=== PATIENT | female | born 1945 | race Two or more races ===

== ENCOUNTER 2020-09-06 17:50 | Inpatient (IN) | payer MEDICAID, MEDICARE, OTHER ==
[~2020-09-06] VITALS: Ht 152.4 cm; Wt 54.4 kg
[2020-09-06] MEDS ORDERED: Hydromorphone 0.5mg/0.5ml inj IVP ONE ×3 (18:00→22:15)
--- NOTE | 2020-09-06 18:00 | NUR ---
ED Nurse Note: Pt was brought in ambulance from the streets s/p slipped and fall today on the the side street with complains of severe L knee pain, no loss of consciousness noted no head trauma. Pt is AOx4, (+) facial grimace, cooperative to care. Pt's VSS, on RA, afebrile on triage. placed on bed and gown.
--- NOTE | 2020-09-06 18:24 | NUR ---
ED Nurse Note: Patient taken down to CT and stable.
[2020-09-06 18:32] LABS: EOSINOPHILS % (AUTO) 1.2 % (0.0-3.0); HEMATOCRIT 27.4 % (37.0-47.0); HEMOGLOBIN 9.7 G/DL (12.0-16.0); LYMPHOCYTES % (AUTO) 16.1 % (20.0-45.0); MEAN CORPUSCULAR VOLUME 88 FL (80-99); MONOCYTES % (AUTO) 6.3 % (1.0-10.0); NEUTROPHILS % (AUTO) 75.4 % (45.0-75.0); PLATELET COUNT 284 K/UL (150-450); RED BLOOD COUNT 3.11 M/UL (4.20-5.40); RED CELL DISTRIBUTION WIDTH 14.4 % (11.6-14.8); WHITE BLOOD COUNT 7.1 K/UL (4.8-10.8)
[2020-09-06 18:41] LABS: ANION GAP 8 mmol/L (5-15); BLOOD UREA NITROGEN 18 mg/dL (7-18); CALCIUM 8.8 MG/DL (8.5-10.1); CARBON DIOXIDE 26 MMOL/L (21-32); CHLORIDE 96 MMOL/L (98-107); CREATININE 0.9 MG/DL (0.55-1.30); POTASSIUM 3.7 MMOL/L (3.5-5.1); SODIUM 130 MMOL/L (136-145)
[2020-09-06 18:46] LABS: ALANINE AMINOTRANSFERASE 15 U/L (12-78); ALBUMIN 3.4 G/DL (3.4-5.0); ALBUMIN/GLOBULIN RATIO 0.7 (1.0-2.7); ALKALINE PHOSPHATASE 119 U/L (46-116); ASPARTATE AMINO TRANSFERASE 27 U/L (15-37); BILIRUBIN,TOTAL 0.4 MG/DL (0.2-1.0)
--- NOTE | 2020-09-06 18:50 | NUR ---
ED Nurse Note: pt returned from radiology.
--- NOTE | 2020-09-06 19:05 | Diagnostic Imaging Report ---
EXAM: CT Abdomen and Pelvis Without Intravenous Contrast CLINICAL HISTORY: ABD PAIN TECHNIQUE: Axial computed tomography images of the abdomen and pelvis without intravenous contrast. CTDI is 11.7 mGy and DLP is 659.4 mGy-cm. One or more of the following dose reduction techniques were used: automated exposure control, adjustment of the mA and/or kV according to patient size, use of iterative reconstruction technique. COMPARISON: No relevant prior studies available. FINDINGS: Lung bases: 1.7 cm right lower lobe pulmonary nodule with irregular hazy and spiculated margins. 8 mm left lingular solid pulmonary nodule. ABDOMEN: Liver: Unremarkable. Gallbladder and bile ducts: Gallstones within the dependent portion of the gallbladder. No ductal dilation. Pancreas: Unremarkable. No ductal dilation. Spleen: Unremarkable. No splenomegaly. Adrenals: Unremarkable. No mass. Kidneys and ureters: Unremarkable. No obstructing stones. No hydronephrosis. Stomach and bowel: Unremarkable. No obstruction. No mucosal thickening. PELVIS: Appendix: Normal appendix. Bladder: Unremarkable. No stones. Reproductive: Unremarkable as visualized. ABDOMEN and PELVIS: Intraperitoneal space: Unremarkable. No free air. No significant fluid collection. Bones/joints: There is a comminuted fracture of the proximal left femur through the intertrochanteric region. There is displacement and apex lateral angulation. The lesser trochanter is displaced medially and posteriorly. Subtle grade 1 anterolisthesis of L4 on L5. Multiple bilateral chronic appearing rib fractures. No dislocation. Soft tissues: Unremarkable. Vasculature: Atherosclerotic vascular disease. No abdominal aortic aneurysm. Lymph nodes: Unremarkable. No enlarged lymph nodes. IMPRESSION: 1. Comminuted, angulated, and displaced left intertrochanteric femur fracture. 2. 1.7 cm right lobe pulmonary nodule with irregular margins, suspicious for primary lung malignancy. Consider tissue biopsy for further evaluation. 3. 8 mm left lingular pulmonary nodule. Consider PET CT, short interval follow-up CT, versus tissue biopsy for further evaluation. 4. Cholelithiasis without evidence of cholecystitis.
--- NOTE | 2020-09-06 19:19 | Diagnostic Imaging Report ---
EXAM: CT Left Lower Extremity Without Intravenous Contrast CLINICAL HISTORY: PAIN TECHNIQUE: Axial computed tomography images of the left lower extremity without intravenous contrast. CTDI is 7.8 mGy and DLP is 432.9 mGy-cm. One or more of the following dose reduction techniques were used: automated exposure control, adjustment of the mA and/or kV according to patient size, use of iterative reconstruction technique. COMPARISON: CT abdomen and pelvis dated 09/06/2020. FINDINGS: Bones/joints: There is a comminuted fracture of the proximal left femur through the intertrochanteric region. There is displacement of the greater and lesser trochanters. There are multiple displaced fracture fragments measuring up to 2.6 cm of displacement. There is apex lateral and superior angulation. There is no dislocation. Degenerative changes of the patellofemoral greater than tibiofemoral joints with sclerosis and subchondral cystic change. Soft tissues: Unremarkable. Vasculature: Diffuse atherosclerotic vascular disease. IMPRESSION: 1. Comminuted, displaced, and angulated left intertrochanteric fracture. 2. 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 3. Atherosclerotic vascular disease.
--- NOTE | 2020-09-06 19:26 | Diagnostic Imaging Report ---
EXAM: CT Left Lower Extremity Without Intravenous Contrast, Knee CLINICAL HISTORY: PAIN TECHNIQUE: Axial computed tomography images of the left knee without intravenous contrast. CTDI is 3.8 mGy and DLP is 134.6 mGy-cm. One or more of the following dose reduction techniques were used: automated exposure control, adjustment of the mA and/or kV according to patient size, use of iterative reconstruction technique. COMPARISON: CT femur dated 09/06/2020. FINDINGS: Bones/joints: There is a central linear lucency along the medial tibial plateau with extension to the cortex (image [id number], series 6). Tricompartmental osteoarthritis is noted, manifested by marginal osteophytosis. Additionally, there is joint space narrowing, more prominent within the patellofemoral joint. Subchondral sclerosis is demonstrated within the medial tibiofemoral and patellofemoral joints. There is subchondral cystic change of the patellofemoral joint. There is a small suprapatellar joint effusion. Anterior and posterior cruciate ligaments appear intact. No dislocation. Soft tissues: Unremarkable. Vasculature: Atherosclerotic vascular disease. IMPRESSION: 1. Subtle cortical lucency of the medial tibial plateau suggestive of small nondisplaced fracture. Recommend correlation with location of pain as well as correlation with exam for point tenderness. 2. Mild to moderate tricompartmental osteoarthritis, most prominent within the patellofemoral joint. 3. Small suprapatellar joint effusion. 4. Atherosclerotic vascular disease.
[2020-09-06 20:05] VITALS: BP 128/82
--- NOTE | 2020-09-06 20:05 | NUR ---
ED Nurse Note: Received patient from JAZMIN Álvarez. patient currently in bed complaining of pain. established a new IV on patient's left AC 20 gauge. will inform ERMD of patient's pain
--- NOTE | 2020-09-06 20:28 | Emergency Room Report ---
History of Present Illness General Chief Complaint: Lower Extremity Injury Source: Patient Present Illness HPI 75-year-old female, history of hypertension, diabetes presents with left hip pain prior to arrival patient had a slip and mechanical fall, endorses sharp left hip pain aggravated luminally with rest severity is severe, intermittent patient did not hit head no LOC patient presents for evaluation and treatment Allergies: Coded Allergies: No Known Allergies (Unverified , 09/06/20) COVID-19 Screening Contact w/high risk pt: No Experienced COVID-19 symptoms?: No COVID-19 Testing performed FLOATLIGHT POWDER MIXER: No Patient History Past Medical History: see triage record Reviewed Nursing Documentation: PMH: Agreed; PSxH: Agreed Nursing Documentation-PMH Past Medical History: No History, Except For Hx Hypertension: Yes Hx Diabetes: Yes Review of Systems All Other Systems: negative except mentioned in HPI Physical Exam Vital Signs Date Time Temp Pulse Resp B/P (MAP) Pulse Ox O2 Delivery O2 Flow Rate FiO2 09/06/20 17:40 98.6 80 18 140/90 (107) 98 Sp02 EP Interpretation: reviewed, normal General Appearance: well appearing, no apparent distress, alert Head: normocephalic, atraumatic Eyes: bilateral eye PERRL, bilateral eye EOMI ENT: uvula midline, moist mucus membranes Neck: supple, thyroid normal, supple/symm/no masses Respiratory: lungs clear, no respiratory distress, no retraction, no accessory muscle use Cardiovascular #1: normal peripheral pulses, regular rate, rhythm, no edema, no gallop, no murmur Gastrointestinal: non tender, soft, no guarding, no rebound Musculoskeletal: other - Leg length discrepancy noted, tenderness to palpation left hip, 2+ PT DP fires EHL Neurologic: alert, oriented x3 Psychiatric: mood/affect normal Skin: no rash, warm/dry Medical Decision Making Diagnostic Impression: Primary Impression: Closed left hip fracture Qualified Codes: S72.002A - Fracture of unspecified part of neck of left femur, initial encounter for closed fracture Additional Impressions: COVID-19 Knee fracture, left Lung cancer Qualified Codes: C34.32 - Malignant neoplasm of lower lobe, left bronchus or lung ER Course 75-year-old female presents with mechanical fall injury to the left hip, patient found to have a fracture, possible tibial fracture Patient admitted to Dr. Bárbara Corral consulted for operative management Spoke with Dr. Hinkle in regards to transfer, currently no beds available. Patient admitted and to stay in ED until transfer vs operative management in [place] Pain control with hydromorphone NPO midnight. Laboratory Tests Test 09/06/20 18:16 White Blood Count 7.1 K/UL (4.8-10.8) Red Blood Count 3.11 M/UL (4.20-5.40) L Hemoglobin 9.7 G/DL (12.0-16.0) L Hematocrit 27.4 % (37.0-47.0) L Mean Corpuscular Volume 88 FL (80-99) Mean Corpuscular Hemoglobin 31.1 PG (27.0-31.0) H Mean Corpuscular Hemoglobin Concent 35.3 G/DL (32.0-36.0) Red Cell Distribution Width 14.4 % (11.6-14.8) Platelet Count 284 K/UL (150-450) Mean Platelet Volume 7.5 FL (6.5-10.1) Neutrophils (%) (Auto) 75.4 % (45.0-75.0) H Lymphocytes (%) (Auto) 16.1 % (20.0-45.0) L Monocytes (%) (Auto) 6.3 % (1.0-10.0) Eosinophils (%) (Auto) 1.2 % (0.0-3.0) Basophils (%) (Auto) 1.0 % (0.0-2.0) Prothrombin Time 10.7 SEC (9.30-11.50) Prothrombin Time INR 1.0 (0.9-1.1) Activated Partial Thromboplast Time 25 SEC (23-33) Sodium Level 130 MMOL/L (136-145) L Potassium Level 3.7 MMOL/L (3.5-5.1) Chloride Level 96 MMOL/L (98-107) L Carbon Dioxide Level 26 MMOL/L (21-32) Anion Gap 8 mmol/L (5-15) Blood Urea Nitrogen 18 mg/dL (7-18) Creatinine 0.9 MG/DL (0.55-1.30) Estimated Glomerular Filtration Rate > 60 mL/min (>60) Glucose Level 168 MG/DL (74-106) H Calcium Level 8.8 MG/DL (8.5-10.1) Total Bilirubin 0.4 MG/DL (0.2-1.0) Aspartate Amino Transferase (AST) 27 U/L (15-37) Alanine Aminotransferase (ALT) 15 U/L (12-78) Alkaline Phosphatase 119 U/L (46-116) H Total Protein 8.4 G/DL (6.4-8.2) H Albumin 3.4 G/DL (3.4-5.0) Globulin 5.0 g/dL Albumin/Globulin Ratio 0.7 (1.0-2.7) L Microbiology Date/Time Source Procedure Growth Status 09/06/20 18:16 Nasopharynx SARS-CoV-2 RdRp Gene Assay - Final Complete EKG Diagnostic Results Troponin ordered: No EKG Time: 18:09 EP Interpretation: NSR, rate 76, QTc 477, no acute ST elevations, normal axis CT/MRI/US Diagnostic Results CT/MRI/US Diagnostic Results : Impression Procedure: CT Abdomen Pelvis WO Contrast EXAM: CT Abdomen and Pelvis Without Intravenous Contrast CLINICAL HISTORY: ABD PAIN TECHNIQUE: Axial computed tomography images of the abdomen and pelvis without intravenous contrast. CTDI is 11.7 mGy and DLP is 659.4 mGy-cm. One or more of the following dose reduction techniques were used: automated exposure control, adjustment of the mA and/or kV according to patient size, use of iterative reconstruction technique. COMPARISON: No relevant prior studies available. FINDINGS: Lung bases: 1.7 cm right lower lobe pulmonary nodule with irregular hazy and spiculated margins. 8 mm left lingular solid pulmonary nodule. ABDOMEN: Liver: Unremarkable. Gallbladder and bile ducts: Gallstones within the dependent portion of the gallbladder. No ductal dilation. Pancreas: Unremarkable. No ductal dilation. Spleen: Unremarkable. No splenomegaly. Adrenals: Unremarkable. No mass. Kidneys and ureters: Unremarkable. No obstructing stones. No hydronephrosis. Stomach and bowel: Unremarkable. No obstruction. No mucosal thickening. PELVIS: Appendix: Normal appendix. Bladder: Unremarkable. No stones. Reproductive: Unremarkable as visualized. ABDOMEN and PELVIS: Intraperitoneal space: Unremarkable. No free air. No significant fluid collection. Bones/joints: There is a comminuted fracture of the proximal left femur through the intertrochanteric region. There is displacement and apex lateral angulation. The lesser trochanter is displaced medially and posteriorly. Subtle grade 1 anterolisthesis of L4 on L5. Multiple bilateral chronic appearing rib fractures. No dislocation. Soft tissues: Unremarkable. Vasculature: Atherosclerotic vascular disease. No abdominal aortic aneurysm. Lymph nodes: Unremarkable. No enlarged lymph nodes. IMPRESSION: 1. Comminuted, angulated, and displaced left intertrochanteric femur fracture. 2. 1.7 cm right lobe pulmonary nodule with irregular margins, suspicious for primary lung malignancy. Consider tissue biopsy for further evaluation. 3. 8 mm left lingular pulmonary nodule. Consider PET CT, short interval follow-up CT, versus tissue biopsy for further evaluation. 4. Cholelithiasis without evidence of cholecystitis. Dictated By: Natanael Estrada M.D. Electronically Signed By:Natanael Estrada M.D. Signed Date/Time09/06/20 0021 CC: Satya Wu MD Last Vital Signs Date Time Temp Pulse Resp B/P (MAP) Pulse Ox O2 Delivery O2 Flow Rate FiO2 09/06/20 17:40 98.6 80 18 140/90 (107) 98 Disposition: ADMITTED INPATIENT Condition: Stable Referrals: [facility],REFERR[facility] (PCP) Satya Wu MD Sep 06, 2020 20:28
--- NOTE | 2020-09-06 23:25 | NUR ---
ED Nurse Note: Report received from DEENA WU. Patient awake on bed. No c/o pain as of the moment
[2020-09-07] VITALS (21 sets, daily range): BP systolic 108–171; BP diastolic 51–78
--- NOTE | 2020-09-07 00:30 | NUR ---
ED Nurse Note: Patient awake on bed. Patient with c/o pain at fractured area; 04/18. ERMD aware with orders made and carried out
[2020-09-07] MEDS ORDERED: Hydromorphone 0.5mg/0.5ml inj ONE ×2 (00:31→04:21)
[2020-09-07] MEDS ORDERED: Hydromorphone 0.5mg/0.5ml inj IVP ONE ×3 (04:30→09:30)
--- NOTE | 2020-09-07 05:30 | NUR ---
ED Nurse Note: Patient asleep on bed. Comfort measures initiated
--- NOTE | 2020-09-07 06:40 | NUR ---
ED Nurse Note: Juan cath fr16 inserted aseptically.
--- NOTE | 2020-09-07 07:08 | NUR ---
ED Nurse Note: Report given to CHRISTOPHE WU
--- NOTE | 2020-09-07 07:09 | NUR ---
ED Nurse Note: Received report from Jonathan WU. Pt seen sleeping in bed. No SOB, on room air. Safety and comfort provided. Isolation precaution is observed. Will cont to monitor.
[2020-09-07 07:24] LABS: APPEARANCE,URINE CLEAR; BILIRUBIN, URINE NEGATIVE (NEGATIVE); GLUCOSE, URINE (UA) 3+ (NEGATIVE); KETONES,URINE 3+ (NEGATIVE); LEUKOCYTE ESTERASE ,URINE NEGATIVE (NEGATIVE); NITRITE,URINE NEGATIVE (NEGATIVE); PH,URINE 6 (4.5-8.0); PROTEIN,URINE 1+ (NEGATIVE); UROBILINOGEN,URINE NORMAL MG/DL (0.0-1.0)
[2020-09-07 07:26] LABS: COLOR,URINE YELLOW
--- NOTE | 2020-09-07 08:36 | NUR ---
CONTACT INFO PATIENT'S DAUGHTER LUKE,
--- NOTE | 2020-09-07 09:50 | NUR ---
ED Nurse Note: Report given to OR Charge Nurse. Pt will be picked up at 1000.
[2020-09-07] MEDS ORDERED: fentaNYL 100 mcg/2 mL IV ONE (10:10)
--- NOTE | 2020-09-07 10:13 | History & Physical ---
History and Physical History & Physicial Attending physician: Dr. Granger Reason for admission: Left hip fracture HPI: This is a 75-year-old female with history of hypertension, and diabetes, who presented to the ER with left hip pain after a slip and mechanical fall. She reports sharp left hip pain aggravated by movement. She states pain is severe. She denied head trauma, or loss of consciousness. On evaluation she in bed and appears to be in moderate pain. She tested positive for COVID-19 in the ER. She is afebrile without signs of SOB. She denies chest pain, palpitation headache, fever or chills. CT abdomen and pelvis without IV contrast shows comminuted, angulated, and displaced left intertrochanteric femur fracture; and incidental finding of cholelithiasis without evidence of cholecystitis. It also revealed 1.7 cm right lobe pulmonary nodule with irregular margins, suspicious for primary lung malignancy. Initial laboratory studies is remarkable for anemia, hyponatremia, hypochloremia, hyperglycemia, proteinuria, and ketonuria. She has received Dilaudid for pain management and is awaiting left hip pinning surgery by Dr. Corral. PMHx: Hypertension, diabetes mellitus Meds: The full list of home medications unavailable at this time Allergies: No known allergies FHx: Unknown Personal/Social Hx: Unknown ROS: HEENT: Denies any headaches, blurry vision, hoarseness, dysphagia, hearing loss, tinnitus, or loss of balance. Chest and lung: Denies any chest discomfort or hemoptysis Cardiovascular: Denies any exertional chest pain, pressure, palpitations, orthopnea, PND, or ankle swelling Gastrointestinal: Denies vomiting, abdominal pain or oily or foul smelling stools. No constipation or hematochezia Genitourinary: Denies any frequency, urgency, dysuria, hematuria, flank pain, kidney stone or kidney disease. Neurological: Denies seizure activity, dizziness or fainting episode PE: VS: BP 139/65, HR 98, RR 18, wt 54 kg, ht 152 cm HEENT: Head examination reveals that the head is normocephalic, atraumatic without deformity or unusual swelling. Pupils are round, reactive to light and accommodation normally. There is no nystagmus, lid lag or exophthalmos. Nasal mucosa is pink. Vision is normal. Chest and Lung: Reveals clear, normal, symmetrical breath sounds with no adventitious sound. Expansion is normal. There are no surgical scars. Cardiovascular: Reveals normal S1, S2 without murmurs, rubs or clicks Abdomen: Soft with no tenderness or organomegaly Rectal: Deferred Musculoskeletal: Tenderness to palpation of the left hip region. Left hip is externally rotated with knees flexed in bed. No signs of ecchymosis or contusion noted . neurological: Cranial nerves II to XII are intact. Gait is normal without ataxia. DTRs are normal. Babinski is downgoing. Laboratory data: Lab testing shows RBC 3.11, hemoglobin 9.7, hematocrit 27.4 Chemistries show sodium 130, chloride 96, glucose 168, alk phos 119 Urinalysis shows 1+ protein, 3+ glucose, 3+ ketones, 2+ blood Coagulation panel unremarkable Impression: 1. Left femur fracture - Left hip pinning operation scheduled by Dr. Corral - Ortho surgery input appreciated 2. 1.7 cm right lobe pulmonary nodule -CT of the abdomen and pelvis showed a 1.7 cm right lobe pulmonary nodule which is very suspicious for lung cancer -Further history is required either from patient or patient's family. -Consider tissue biopsy for further evaluation - Would appreciate heme-onc consult - Discuss care plan once she recovers from surgery 3. Cholelithiasis without evidence of cholecystitis - monitor 4. Anemia -Would appreciate heme-onc consult 5. Hyponatremia - monitor and check AM labs 6. Hypochloremia - monitor and check AM labs 7. Diabetes mellitus with hyperglycemia - monitor BGs - we will initiate insulin sensitive scale 8. COVID-19 infection; could be mild case or early phase - given her normoxemia on room air, without SOB, fever, cough, no specific therapy required for COVID-19 at this time - Monitor SaO2 and provide supplemental oxygen as needed 9. Hypertension - Monitor BP 10. DVT ppx post surgery The care for this patient was discussed with my supervising physician. Time spent for this case was approximately 31 minutes. Piter Inman Sep 07, 2020 10:13
[2020-09-07] MEDS ORDERED: Duramorph PF 5mg/10ml amp ONE (10:19)
[2020-09-07] MEDS ORDERED: NeoSporin Gu Irrig 1ml Amp IRRIG ONE (10:19)
[2020-09-07] MEDS ORDERED: Bacitracin 50000 Units Vial ONE (10:19)
[2020-09-07] MEDS ORDERED: Bupivacaine 0.5% Inj 30 ml vial INJ ONE (10:19)
--- NOTE | 2020-09-07 10:35 | NUR ---
TRANSFER TO FLOOR: Patient transferred to OR for surgery, pt was picked up by OR tech. Pt AAOx4, verbally responsive. No SOB, on room air. IV line on left Ac 20g patent and intact. All belongings sent with the patient.
--- NOTE | 2020-09-07 11:57 | Anethesia Preoperative Eval ---
Anesthesia Pre-op PMH/ROS General Date of Evaluation: Sep 07, 2020 Time of Evaluation: 10:10 Anesthesiologist: Brian ASA Score: ASA 3 Mallampati Score Class I : Soft palate, uvula, fauces, pillars visible Class II: Soft palate, uvula, fauces visible Class III: Soft palate, base of uvula visible Class IV: Only hard plate visible Mallampati Classification: Class III Surgeon: Ellis Diagnosis: L femoal Fx. Surgical Procedure: ORIF Anesthesia History: none Family History: no anesthesia problems Allergies: Coded Allergies: No Known Allergies (Unverified , 09/06/20) Patient NPO?: Yes Past Medical History Cardiovascular: Reports: HTN; Denies: CAD, [place], valve dz, arrhythmia, other Pulmonary: Reports: DARÍO; Denies: asthma, COPD, other Gastrointestinal/Genitourinary: Reports: GERD; Denies: CRI, ESRD, other Neurologic/Psychiatric: Denies: dementia, CVA, depression/anxiety, TIA, other Endocrine: Reports: DM, hypothyroidism; Denies: steroids, other HEENT: Denies: cataract (L), cataract (R), glaucoma, [place] (L), [place] (R), other Hematology/Immune: Reports: anemia; Denies: DVT, bleeding disorder, other Musculoskeletal/Integumentary: Reports: OA; Denies: RA, DJD, DDD, edema, other Other: obesity PMH Narrative: as above PSxH Narrative: See H&P Anesthesia Pre-op Phys. Exam Physician Exam Last Vital Signs Date Time Temp Pulse Resp B/P (MAP) Pulse Ox O2 Delivery O2 Flow Rate FiO2 09/07/20 10:35 98.5 98 18 139/65 96 Airway Exam Mallampati Score: Class III MO: limited Neck: short Teeth: missing Dentures: no upper, no lower Anesthesia Pre-op A/P Labs Hematology Test 09/06/20 18:16 White Blood Count 7.1 K/UL (4.8-10.8) Red Blood Count 3.11 M/UL (4.20-5.40) L Hemoglobin 9.7 G/DL (12.0-16.0) L Hematocrit 27.4 % (37.0-47.0) L Mean Corpuscular Volume 88 FL (80-99) Mean Corpuscular Hemoglobin 31.1 PG (27.0-31.0) H Mean Corpuscular Hemoglobin Concent 35.3 G/DL (32.0-36.0) Red Cell Distribution Width 14.4 % (11.6-14.8) Platelet Count 284 K/UL (150-450) Mean Platelet Volume 7.5 FL (6.5-10.1) Neutrophils (%) (Auto) 75.4 % (45.0-75.0) H Lymphocytes (%) (Auto) 16.1 % (20.0-45.0) L Monocytes (%) (Auto) 6.3 % (1.0-10.0) Eosinophils (%) (Auto) 1.2 % (0.0-3.0) Basophils (%) (Auto) 1.0 % (0.0-2.0) Coagulation Test 09/06/20 18:16 Prothrombin Time 10.7 SEC (9.30-11.50) Prothromb Time International Ratio 1.0 (0.9-1.1) Activated Partial Thromboplast Time 25 SEC (23-33) Chemistry Test 09/06/20 18:16 Sodium Level 130 MMOL/L (136-145) L Potassium Level 3.7 MMOL/L (3.5-5.1) Chloride Level 96 MMOL/L (98-107) L Carbon Dioxide Level 26 MMOL/L (21-32) Anion Gap 8 mmol/L (5-15) Blood Urea Nitrogen 18 mg/dL (7-18) Creatinine 0.9 MG/DL (0.55-1.30) Estimat Glomerular Filtration Rate > 60 mL/min (>60) Glucose Level 168 MG/DL (74-106) H Calcium Level 8.8 MG/DL (8.5-10.1) Total Bilirubin 0.4 MG/DL (0.2-1.0) Aspartate Amino Transf (AST/SGOT) 27 U/L (15-37) Alanine Aminotransferase (ALT/SGPT) 15 U/L (12-78) Alkaline Phosphatase 119 U/L (46-116) H Total Protein 8.4 G/DL (6.4-8.2) H Albumin 3.4 G/DL (3.4-5.0) Globulin 5.0 g/dL Albumin/Globulin Ratio 0.7 (1.0-2.7) L Studies Pre-op Studies: EKG - SR Risk Assessment & Plan Assessment: ASA 3 Plan: SAB vs GA Status Change Before Surgery: No Pre-Antibiotics Drug: Ancef 1gr Given Within 1 Hr of Incision: Yes Time Given: 11:25 Tho Torres MD Sep 07, 2020 11:57
[2020-09-07] MEDS ORDERED: LR 1000ml 1,000 ML IVLG SCH (12:00)
[2020-09-07] MEDS ORDERED: DiphenhydrAMINE 50mg/ml Inj IVP PRN (12:00)
[2020-09-07] MEDS ORDERED: Hydromorphone 0.5mg/0.5ml inj IVP PRN (12:00)
[2020-09-07] MEDS ORDERED: Ketorolac 30mg Inj IV PRN (12:00)
[2020-09-07] MEDS: Insulin Human Regular 100units/ml 3ml SUBQ SCH (12:45)
--- NOTE | 2020-09-07 12:45 | NUR ---
UNABLE TO SCAN REGULAR INSULIN 8 UNITS SQ GIVEN . RECOVERED IN ROOM 5 PT COVID POSITIVE
[2020-09-07] MEDS ORDERED: Insulin Human Regular 100units/ml 3ml ONE (12:46)
--- NOTE | 2020-09-07 14:24 | Diagnostic Imaging Report ---
Indication: Shortness of breath Technique: One view of the chest Comparison: none Findings: Bilateral infiltrates in a peribronchovascular distribution are noted. The heart is upper limits normal in size. The pleural spaces are clear. Impression: Bilateral infiltrates, likely although focal pneumonia. Pulmonary edema also is a possibility. Correlate with clinical findings
--- NOTE | 2020-09-07 14:25 | Diagnostic Imaging Report ---
Indication: Pain, status post fall Technique: One view of the pelvis Comparison: none Findings: There is intertrochanteric fracture of the left hip. This is comminuted and angulated. No pelvic fracture. The right hip is unremarkable. The joint spaces are preserved. There are degenerative changes of the lumbosacral junction Impression: Left hip intertrochanteric fracture
--- NOTE | 2020-09-07 14:26 | Diagnostic Imaging Report ---
Indications: Pain, status post fall Technique: Two views of the left femur Comparison: None Findings: There is an intertrochanteric fracture of the left. No distal shaft fracture demonstrated. Impression: Positive for left hip intertrochanteric fracture
--- NOTE | 2020-09-07 15:11 | NUR ---
NURSE NOTES: Patient received from surgery unit at 1340, report given by JAZMIN Bennett. Pt under Henny Moreno aware of pt's arrival to unit and was able to obtain admission orders. Patient is arousable to verbal and tactile stimuli, no SOB, bed set in lowest position with breaks engaged, pt s/p ORIF of left femur, dressing intact and in place, IV line on left AC present. FC in place. Pt in on 02 via NC at 2lpm, denies pain at this time. Pt unable to turn at this time because of surgery site. Belongings checked with JAZMIN Bennett. Dentures (upper and lower) with patient but other things in inventory (Android phone and $148) were not with patient. Per surgery, ER still has the other belongings. Checked with ER but was told to call back at a later time d/t they were having an emergency. secretary was able to pick pulling machine operator the rest of the belongings and now given to patient. Pt adjusting well to unit. Will continue to monitor and proceed with plan of care. Call light within reach. BP 144/67 RR: 19 T:98.5 02 at 96% HR 88.
[2020-09-07] MEDS: NovoLOG Insulin Flexpen SUBQ SCH ×2 (16:30→21:00)
--- NOTE | 2020-09-07 16:51 | Diagnostic Imaging Report ---
INDICATION: Pain, intraoperative TECHNIQUE: Intraoperative imaging Fluoroscopy time: 44.9 seconds Total dose: 0.04632 mGym2 Total number of images: 5 COMPARISON: 09/06/2020 FINDINGS: Intraoperative images document surgical repair of previously described left hip intertrochanteric fracture with medullary oj and compression screw IMPRESSION: Intraoperative imaging, as described
[2020-09-07] MEDS ORDERED: HYDROcodone/Acetamin 10/325 tab ORAL SCH (17:00)
[2020-09-07] MEDS: Potassium Chloride 20 MEQ in 1/2 NS 1000ml 1,000 ML IV SCH (17:27)
--- NOTE | 2020-09-07 19:00 | Operative Note - Dictated ---
DATE OF OPERATION: 09/07/2020 SURGEON: Miguel Corral MD SERVICE SUPPORT REPRESENTATIVE: None. ANESTHESIA: General plus regional. COMPLICATIONS: None. ANTIBIOTICS: Ancef. PREOPERATIVE DIAGNOSIS: Left intertrochanteric displaced hip fracture. POSTOPERATIVE DIAGNOSIS: Left intertrochanteric displaced hip fracture. PROCEDURE PERFORMED: 1. Left hip short nailing using a Gamma [place] with proximal compression and single distal static interlocking screw. 2. Fluoroscopic image intensification (15 mm) for fracture reduction and hardware placement. ESTIMATED BLOOD LOSS: 100 mL. SPECIMEN SENT: None. BACKGROUND: Patient slipped and fell. All risks, benefits, and alternatives to surgical intervention were discussed in great detail through an state highway police officer. Risks included, but were not limited to, bleeding, infection, neurovascular injury, need for additional surgical intervention, failure of pain relief, arthrofibrosis, complications of anesthesia, blood clots, stroke, heart attack, and potentially . She understood these risks, amongst numerous others, including leg length discrepancy or rotational deformity, and consent was signed. PROCEDURE IN DETAIL: Patient was brought into the operating room, placed supine on the operating room table. The left hip was correctly verified for surgical site and prepped and draped in standard sterile fashion. Fluoroscopic image intensification was utilized after fracture reduction maneuvers to confirm near anatomic reduction. The starting point was created in the skin proximal to and in line with the femur. A greater trochanter starting point was obtained and overdrilled. The implant was secured into position and a center/center hip screw was fashioned and compressed under fluoroscopy. A top locking screw was set and quarter turn loosened to allow compression with ambulation. A distal static interlocking 32.5 mm screw was secured in a position thereafter. AP and lateral fluoroscopic imaging confirmed appropriate fracture reduction as well as hardware placement and sizing. The wounds were copiously irrigated and reapproximated using 0 Vicryl, 2-0 Vicryl, Monocryl, and Steri-Strips. Tegaderm was used over the dressings. There were no complications. I attest I performed the entire operation. She was transferred to recovery in good condition. Of note, all necessary precautions were taken because of a COVID positive testing pre-operatively. Reportedly, she had no symptoms and was unaware of her diagnosis of COVID-19. Miguel Corral M.D. DR: Nubia JOB#: [id number] CC: NICOLÁS
--- NOTE | 2020-09-07 19:15 | NUR ---
NURSE NOTES: Received report from JAZMIN Wolff. Pt is awake in bed. No pain at this time. A&Ox4. Bed locked and in lowest position, call light within reach. Will continue to monitor.
--- NOTE | 2020-09-07 19:41 | NUR ---
NURSE HAND-OFF: Important Events on Shift:[new pt from surgery, pain management, new admission orders, monitoring vital signs] Patient Status: [needs monitoring] Diet: [clear liquid] Pending Orders: [] Pending Results/Labs:[] Pending MD notification:[] Latest Vital Signs: Temperature 98.6 , Pulse 85 , B/P 108 /51 , Respiratory Rate 16 , O2 SAT 96 , Simple Mask, O2 Flow Rate 6.0 . Vital Sign Comment: [] Latest Dahl Fall Score: 65 Fall Risk: High Risk Safety Measures: Call light , Bed Alarm , Side Rails Side Rails x2, Bed position . Fall Precautions: Report given to [JAZMIN Rivera].
[2020-09-08] VITALS: BP 157/72
[2020-09-08 04:00] VITALS: BP 147/72
[2020-09-08] MEDS: Hydromorphone 0.5mg/0.5ml inj IVP PRN ×2 (06:22→08:51)
[2020-09-08] MEDS: Potassium Chloride 20 MEQ in 1/2 NS 1000ml 1,000 ML IV SCH ×2 (06:23→20:11)
[2020-09-08] MEDS: NovoLOG Insulin Flexpen SUBQ SCH ×4 (06:30→20:23)
[2020-09-08] MEDS ORDERED: Lidocaine 1% Plain 30 ml INJ PRN (06:45)
[2020-09-08] MEDS ORDERED: Sodium Bicarbonate 4% 2.4meq/5ml vial IV PRN (06:45)
--- NOTE | 2020-09-08 06:47 | Consultation ---
History of Present Illness General Chief Complaint: Lower Extremity Injury Present Illness Allergies: Coded Allergies: No Known Allergies (Unverified , 09/06/20) Patient History Healthcare decision maker Resuscitation status Advanced Directive on File Physical Exam Last 24 Hour Vital Signs Date Time Temp Pulse Resp B/P (MAP) Pulse Ox O2 Delivery O2 Flow Rate FiO2 09/08/20 04:00 97.0 107 19 147/72 (97) 97 09/08/20 00:00 99.3 100 20 157/72 (100) 98 09/07/20 21:00 Nasal Cannula 2.0 09/07/20 20:00 98.1 97 18 140/62 (88) 99 09/07/20 17:25 98.6 09/07/20 16:00 98.6 85 16 108/51 (70) 96 09/07/20 15:45 96.9 85 16 119/62 (81) 96 09/07/20 15:15 97.8 85 16 125/56 (79) 96 09/07/20 14:45 98.7 85 16 114/66 (82) 96 09/07/20 14:30 98.0 80 16 118/63 (81) 96 09/07/20 14:15 98.7 85 16 127/66 (86) 96 09/07/20 14:05 Nasal Cannula 6.0 09/07/20 14:00 98.8 85 16 135/51 (79) 96 09/07/20 13:45 97.8 09/07/20 13:45 97.8 09/07/20 13:32 98.6 90 20 155/75 100 Simple Mask 6 09/07/20 13:20 89 18 156/70 100 Simple Mask 6 09/07/20 13:10 89 20 149/77 100 Simple Mask 6 09/07/20 13:05 86 19 165/65 100 Simple Mask 6 09/07/20 13:00 88 20 155/67 100 Simple Mask 6 09/07/20 12:55 86 18 138/68 100 Simple Mask 6 09/07/20 12:50 84 22 153/65 100 Simple Mask 6 09/07/20 12:45 88 20 167/61 100 Simple Mask 6 09/07/20 12:42 98.0 87 21 171/72 100 Simple Mask 6 09/07/20 10:35 98.5 98 18 139/65 96 09/07/20 10:26 98.5 09/07/20 10:23 98.5 98 18 139/65 96 09/07/20 07:15 98.6 78 16 145/78 99 09/07/20 06:48 98.6 Intake and Output 09/07/20 09/08/20 19:00 07:00 Intake Total 100 ml 150 ml Output Total 200 ml 250 ml Balance -100 ml -100 ml Intake Oral 100 ml 150 ml Output Urine Total 200 ml 250 ml Laboratory Tests Test 09/07/20 07:15 09/07/20 12:40 09/07/20 16:36 Urine Color Yellow Urine Appearance Clear Urine pH 6 (4.5-8.0) Urine Specific Whitt 1.015 (1.005-1.035) Urine Protein 1+ (NEGATIVE) H Urine Glucose (UA) 3+ (NEGATIVE) H Urine Ketones 3+ (NEGATIVE) H Urine Blood 2+ (NEGATIVE) H Urine Nitrite Negative (NEGATIVE) Urine Bilirubin Negative (NEGATIVE) Urine Urobilinogen Normal MG/DL (0.0-1.0) Urine Leukocyte Esterase Negative (NEGATIVE) Urine RBC 5-10 /HPF (0 - 2) H Urine WBC 0-2 /HPF (0 - 2) Urine Squamous Epithelial Cells Few /LPF (NONE/OCC) Urine Bacteria Few /HPF (NONE) POC Whole Blood Glucose Pending 113 MG/DL (74-106) H Height (Feet): 5 Height (Inches): 0.00 Weight (Pounds): 120 Medications Current Medications Medications (Trade) Dose Ordered Sig/Serena Route PRN Reason Start Time Stop Time Status Last Admin Dose Admin Dextrose (Dextrose 50%) 25 ml Q30M PRN IV Hypoglycemia 09/07/20 15:00 12/06/20 14:59 Dextrose (Dextrose 50%) 50 ml Q30M PRN IV Hypoglycemia 09/07/20 15:00 12/06/20 14:59 Hydromorphone HCl (Dilaudid) 0.5 mg Q2H PRN IVP Pain Scale (6-10) 09/07/20 13:15 09/14/20 13:14 09/08/20 06:22 Insulin Aspart (NovoLOG) BEFORE MEALS AND HS SUBQ 09/07/20 16:30 12/06/20 16:29 Potassium Chloride 20 meq/ Sodium Chloride 1,010 ml @ 75 mls/hr [id number] IV 09/07/20 17:00 10/07/20 16:59 09/08/20 06:23 Assessment/Plan Assessment/Plan: Hematology Consultation REMarty PEPE: Yuval Granger DOS: 09/08/2020 Reason for admission: Left hip fracture RFC: Lung mass HPI: This is a 75-year-old female with history of hypertension, and diabetes, who presented to the ER with left hip pain after a slip and mechanical fall. She reports sharp left hip pain aggravated by movement. She states pain is severe. She denied head trauma, or loss of consciousness. On evaluation she in bed and appears to be in moderate pain. She tested positive for COVID-19 in the ER. She is afebrile without signs of SOB. She denies chest pain, palpitation headache, fever or chills. CT abdomen and pelvis without IV contrast shows comminuted, angulated, and displaced left intertrochanteric femur fracture; and incidental finding of cholelithiasis without evidence of cholecystitis. It also revealed 1.7 cm right lobe pulmonary nodule with irregular margins, suspicious for primary lung malignancy. Initial laboratory studies is remarkable for anemia, hyponatremia, hypochloremia, hyperglycemia, proteinuria, and ketonuria. She has received Dilaudid for pain management and is awaiting left hip pinning surgery by Dr. Corral. PMHx: Hypertension, diabetes mellitus Meds: The full list of home medications unavailable at this time Allergies: No known allergies FHx: Unknown Personal/Social Hx: Unknown ROS: HEENT: Denies any headaches, blurry vision, hoarseness, dysphagia, hearing loss, tinnitus, or loss of balance. Chest and lung: Denies any chest discomfort or hemoptysis Cardiovascular: Denies any exertional chest pain, pressure, palpitations, orthopnea, PND, or ankle swelling Gastrointestinal: Denies vomiting, abdominal pain or oily or foul smelling stools. No constipation or hematochezia Genitourinary: Denies any frequency, urgency, dysuria, hematuria, flank pain, kidney stone or kidney disease. Neurological: Denies seizure activity, dizziness or fainting episode PE: VS: reviewed HEENT: Head examination reveals that the head is normocephalic, atraumatic without deformity or unusual swelling. Chest and Lung: Reveals clear, normal, symmetrical breath sounds with no adventitious sound. Cardiovascular: Reveals normal S1, S2 without murmurs, rubs or clicks Abdomen: Soft with no tenderness or organomegaly Rectal: Deferred Musculoskeletal: Tenderness to palpation of the left hip region. Left hip is externally rotated with knees flexed in bed. neurological: Cranial nerves II to XII are intact. Gait is normal without ataxia. DTRs are normal. Babinski is downgoing. Laboratory data: Lab testing shows RBC 3.11, hemoglobin 9.7, hematocrit 27.4 Chemistries show sodium 130, chloride 96, glucose 168, alk phos 119 Urinalysis shows 1+ protein, 3+ glucose, 3+ ketones, 2+ blood Coagulation panel unremarkable Imagin. Comminuted, angulated, and displaced left intertrochanteric femur fracture. 2. 1.7 cm right lobe pulmonary nodule with irregular margins, suspicious for primary lung malignancy. Consider tissue biopsy for further evaluation. 3. 8 mm left lingular pulmonary nodule. Consider PET CT, short interval follow-up CT, versus tissue biopsy for further evaluation. Impression: # 1.7 cm right lobe pulmonary nodule, also with lingular mass --> CT of the abdomen and pelvis showed a 1.7 cm right lobe pulmonary nodule which is very suspicious for lung cancer --> Ordered tissue biopsy for further evaluation --> Discuss care plan once she recovers from surgery # Anemia likely related from hemodilution --> obtain anemia panel --> repeat cbc --> hgb 9.7 # Left femur fracture --> Left hip pinning operation scheduled by Dr. Corral --> Ortho surgery input appreciated # Cholelithiasis without evidence of cholecystitis --> monitor # Hyponatremia --> ivfs # Hypochloremia --> monitor and check AM labs # Diabetes mellitus with hyperglycemia --> monitor BGs --> we will initiate insulin sensitive scale # COVID-19 infection; could be mild case or early phase --> per pulm # DVT ppx post surgery Appreciate consultation and dw Teofilo Vaz MD Sep 08, 2020 06:47
--- NOTE | 2020-09-08 07:25 | NUR ---
NURSE HAND-OFF: Important Events on Shift: Pt had 10/10 pain in Left hip Patient Status: calm Diet: clear liquid Pending Orders: CBC BMP 09-09 Pending Results/Labs: Pending MD notification: Latest Vital Signs: Temperature 97.0 , Pulse 107 , B/P 147 /72 , Respiratory Rate 19 , O2 SAT 97 , Simple Mask, O2 Flow Rate 2.0 . Vital Sign Comment: VSS Latest Dahl Fall Score: 65 Fall Risk: High Risk Safety Measures: Call light Within Reach, Bed Alarm Zone 1, Side Rails Side Rails x3, Bed position Low and Locked. Fall Precautions: Yellow Socks Door Sign Patient Fall Education Report given to JAZMIN Rankin.
--- NOTE | 2020-09-08 07:30 | NUR ---
NURSE NOTES: Received report from JAZMIN Rivera. Rounding done. Pt a/o x 4. No SOB noted with NC 2L/min. Pt stated pt has pain on surgical site as 5/10 and pain meds were given by shift boss nurse. 1/2NS + Kcl 20 meq @75ml/hr via Lt AC. Lt hip surgical dressing is dry/intact. Bed in lowest position, call light within reach. Will continue to monitor.
[2020-09-08 07:43] LABS: BASOPHILS % (AUTO) 0.3 % (0.0-2.0); EOSINOPHILS % (AUTO) 0.1 % (0.0-3.0); HEMATOCRIT 26.2 % (37.0-47.0); HEMOGLOBIN 8.2 G/DL (12.0-16.0); LYMPHOCYTES % (AUTO) 10.1 % (20.0-45.0); MEAN CORPUSCULAR VOLUME 96 FL (80-99); MONOCYTES % (AUTO) 8.3 % (1.0-10.0); NEUTROPHILS % (AUTO) 81.3 % (45.0-75.0); PLATELET COUNT 232 K/UL (150-450); RED BLOOD COUNT 2.72 M/UL (4.20-5.40); RED CELL DISTRIBUTION WIDTH 12.7 % (11.6-14.8); WHITE BLOOD COUNT 5.9 K/UL (4.8-10.8)
[2020-09-08 08:00] VITALS: BP 133/60
[2020-09-08 08:16] LABS: ALANINE AMINOTRANSFERASE 20 U/L (12-78); ALBUMIN 2.7 G/DL (3.4-5.0); ALBUMIN/GLOBULIN RATIO 0.6 (1.0-2.7); ALKALINE PHOSPHATASE 85 U/L (46-116); ANION GAP 8 mmol/L (5-15); ASPARTATE AMINO TRANSFERASE 32 U/L (15-37); BILIRUBIN,TOTAL 0.4 MG/DL (0.2-1.0); BLOOD UREA NITROGEN 14 mg/dL (7-18); CALCIUM 7.7 MG/DL (8.5-10.1); CARBON DIOXIDE 26 MMOL/L (21-32); CHLORIDE 97 MMOL/L (98-107); CREATININE 0.7 MG/DL (0.55-1.30); POTASSIUM 3.6 MMOL/L (3.5-5.1); SODIUM 131 MMOL/L (136-145)
--- NOTE | 2020-09-08 10:20 | NUR ---
PT NOTE Received MD order for PT evaluation s/p L hip fx ORIF. Attempted to see patient for PT. Patient c/o 06/18 pain L hip with slight movement of LLE despite being medicated earlier for pain. Patient declining to participate with PT due to pain. Chucho WU notified, will follow up in p.m.
--- NOTE | 2020-09-08 10:34 | Immediate Post-Op Evaluation ---
Immediate Post-Op Evalulation Immediate Post-Op Evalulation Procedure: ORIF of L femoral Fx Date of Evaluation: Sep 07, 2020 Time of Evaluation: 12:30 IV Fluids: 800 Blood Products: none Estimated Blood Loss: 50 Urinary Output: 400 Blood Pressure Systolic: 134 Blood Pressure Diastolic: 76 Pulse Rate: 78 Respiratory Rate: 22 O2 Sat by Pulse Oximetry: 98 Temperature (Fahrenheit): 97.8 Pain Score (1-10): 2 Nausea: No Vomiting: No Complications none Patient Status: reacts, patent, none Hydration Status: adequate Tho Torres MD Sep 08, 2020 10:34
--- NOTE | 2020-09-08 10:35 | 48 Hour Post Anesthesia Eval ---
Post Anesthesia Evaluation Procedure: ORIF of L femoral Fx Date of Evaluation: Sep 08, 2020 Time of Evaluation: 10:34 Blood Pressure Systolic: 138 0: 76 Pulse Rate: 78 Respiratory Rate: 20 Temperature (Fahrenheit): 97.8 O2 Sat by Pulse Oximetry: 98 Airway: patent Nausea: No Vomiting: No Pain Intensity: 3 Hydration Status: adequate Cardiopulmonary Status: stable Mental Status/LOC: patient returned to baseline Follow-up Care/Observations: n/a Post-Anesthesia Complications: none Follow-up care needed: N/A Tho Torres MD Sep 08, 2020 10:35
[2020-09-08 12:00] VITALS: BP 116/60
--- NOTE | 2020-09-08 12:00 | NUR ---
NURSE NOTES: Dr. Granger came to see the pt. Dilaudid 0.5mg was not working at all and asked Dr. Granger. ordered Dilaudid 1mg Q4HR for pain. Noted and carried out.
[2020-09-08] MEDS: HYDROmorphone 1mg/ml Carpuject IVP PRN ×3 (12:37→21:04)
--- NOTE | 2020-09-08 13:10 | NUR ---
PT EVALUATION NOTE Patient seen for initial evaluation. Patient presents with L hip pain and impaired functional mobility s/p L hip fx ORIF. Patient required max assist of 2 to come to sitting at the EOB and mod assist to maintain sitting at the EOB. Patient limited by c/o 06/18 pain L hip despite being pre-medicated. Patient unable to stand/transfer or ambulate at this time. Patient will benefit from skilled inpatient PT intervention to increase strength and postural stability for improved level of functional mobility and safety. Recommend discharge to SNF/[facility] for continued rehab once medically cleared by MD. Recommend FWW for transfers and ambulation, and bedside commode/raised toilet seat. Addendum: 09/08/20 at 1358 by UYEN NEVILLE PT Amended: Links added.
--- NOTE | 2020-09-08 14:07 | NUR ---
CASE MANAGEMENT:INITIAL REVIEW 75 YR OLD FEMALE BIBA FROM HOME CC;LOWER EXTREMITY INJURY S/P MECHANICAL FALL PMHx;LUNG CANCER SI;CLOSED LEFT HIP FRACTURE~S/P SURGICAL HIP REPAIR W/PINNING 09/07/20 COVID-19 POSITIVE. 98.6 95 20 163/78 98% ON RA H/H 9.7/27.4 NA 130 BG 168 ALP 119 UA+ PROTEIN, GLUCOSE, KETONES, BLOOD, RBC COVID RAPID ~ POSITIVE ABD/PELVIS CT ~ 1. Comminuted, angulated, and displaced left intertrochanteric femur fracture. 2. 1.7 cm right lobe pulmonary nodule with irregular margins, suspicious for primary lung malignancy. Consider tissue biopsy for further evaluation. LT FEMUR CT ~ 1. Comminuted, displaced, and angulated left intertrochanteric fracture. HIP/PELVIS XRAY ~ Left hip intertrochanteric fracture LT FEMUR XRAY ~ Positive for left hip intertrochanteric fracture IS;DILAUDID IV ZOFRAN IV BENADRYL IV INSULIN REGULAR SQ ADMITTED TO MED SURG MED SURG STATUS DCP;PENDING HOSPITAL STAY
--- NOTE | 2020-09-08 15:56 | Pulmonology Progress Note ---
Subjective ROS Limited/Unobtainable: No Interval Events: s/p left hip pinning Constitutional: Reports: no symptoms HEENT: Repors: no symptoms Respiratory: Reports: no symptoms Cardiovascular: Reports: no symptoms Gastrointestinal/Abdominal: Reports: no symptoms Allergies: Coded Allergies: No Known Allergies (Unverified , 09/06/20) Objective Last 24 Hour Vital Signs Date Time Temp Pulse Resp B/P (MAP) Pulse Ox O2 Delivery O2 Flow Rate FiO2 09/08/20 12:00 98.3 71 21 116/60 (78) 97 09/08/20 10:35 78 20 98 09/08/20 10:34 78 22 98 09/08/20 09:00 Nasal Cannula 2.0 09/08/20 08:00 98.4 98 21 133/60 (84) 99 09/08/20 04:00 97.0 107 19 147/72 (97) 97 09/08/20 00:00 99.3 100 20 157/72 (100) 98 09/07/20 21:00 Nasal Cannula 2.0 09/07/20 20:00 98.1 97 18 140/62 (88) 99 09/07/20 17:25 98.6 09/07/20 16:00 98.6 85 16 108/51 (70) 96 Intake and Output 09/07/20 09/08/20 19:00 07:00 Intake Total 250 ml 150 ml Output Total 220 ml 250 ml Balance 30 ml -100 ml Intake Oral 100 ml 150 ml IV Total 150 ml Output Urine Total 200 ml 250 ml Estimated Blood Loss 20 ml Objective 09/08 on 2L NC saturating well General Appearance: WD/WN HEENT: atraumatic Respiratory: lungs clear Cardiovascular: normal rate, regular rhythm Abdomen: soft, non tender Microbiology Date/Time Source Procedure Growth Status 09/06/20 18:16 Nasopharynx SARS-CoV-2 RdRp Gene Assay - Final Complete Laboratory Tests 09/07/20 16:36: POC Whole Blood Glucose 113H 09/07/20 20:32: POC Whole Blood Glucose 99 09/08/20 06:00: White Blood Count 5.9, Red Blood Count 2.72L, Hemoglobin 8.2L, Hematocrit 26.2L, Mean Corpuscular Volume 96#, Mean Corpuscular Hemoglobin 30.1, Mean Corpuscular Hemoglobin Concent 31.2L, Red Cell Distribution Width 12.7, Platelet Count 232, Mean Platelet Volume 7.3, Neutrophils (%) (Auto) 81.3H, Lymphocytes (%) (Auto) 10.1L, Monocytes (%) (Auto) 8.3, Eosinophils (%) (Auto) 0.1, Basophils (%) (Auto) 0.3, Sodium Level 131L, Potassium Level 3.6, Chloride Level 97L, Carbon Dioxide Level 26, Anion Gap 8, Blood Urea Nitrogen 14, Creatinine 0.7, Estimat Glomerular Filtration Rate > 60, Glucose Level 124H, Hemoglobin A1c 7.8H, Calcium Level 7.7L, Ferritin 113, Total Bilirubin 0.4, Aspartate Amino Transf (AST/SGOT) 32, Alanine Aminotransferase (ALT/SGPT) 20, Alkaline Phosphatase 85, Total Protein 7.1, Albumin 2.7L, Globulin 4.4, Albumin/Globulin Ratio 0.6L 09/08/20 12:19: POC Whole Blood Glucose 145H Current Medications Medications (Trade) Dose Ordered Sig/Serena Route PRN Reason Start Time Stop Time Status Last Admin Dose Admin Dextrose (Dextrose 50%) 25 ml Q30M PRN IV Hypoglycemia 09/07/20 15:00 12/06/20 14:59 Dextrose (Dextrose 50%) 50 ml Q30M PRN IV Hypoglycemia 09/07/20 15:00 12/06/20 14:59 Hydromorphone HCl (Dilaudid) 1 mg Q4H PRN IVP Breakthrough Pain 6-10 09/08/20 12:45 09/15/20 12:44 09/08/20 12:37 Insulin Aspart (NovoLOG) BEFORE MEALS AND HS SUBQ 09/07/20 16:30 12/06/20 16:29 09/08/20 12:38 Lidocaine HCl (Xylocaine 1% 30ml) 30 ml NOW PRN INJ Radiology Procedure 09/08/20 06:45 09/10/20 06:44 Potassium Chloride 20 meq/ Sodium Chloride 1,010 ml @ 75 mls/hr [id number] IV 09/07/20 17:00 10/07/20 16:59 09/08/20 06:23 Sodium Bicarbonate (Sodium Bicarbonate 4%) 1 ml NOW PRN IV Radiology Procedure 09/08/20 06:45 09/10/20 06:44 Assessment/Plan Assessment/Plan 1. Left femur fracture - s/p Left hip pinning operation by Dr. Corral 2. 1.7 cm right lobe pulmonary nodule -CT of the abdomen and pelvis showed a 1.7 cm right lobe pulmonary nodule which is very suspicious for lung cancer -Further history is required either from patient or patient's family. -scheduled for CT guided needle Bx of lung mass on 09/12/[address] Orr - appreciate heme-onc consult 3. Cholelithiasis without evidence of cholecystitis - monitor 4. Anemia, likely from hemodilution -Would appreciate heme-onc consult 5. Hyponatremia - monitor and check AM labs 6. Hypochloremia - monitor and check AM labs 7. Diabetes mellitus with hyperglycemia - monitor BGs - we will initiate insulin sensitive scale 8. COVID-19 infection; could be mild case or early phase - given her normoxemia on room air, without SOB, fever, cough, no specific therapy required for COVID-19 at this time - Monitor SaO2 and provide supplemental oxygen as needed 9. Hypertension - Monitor BP 10. DVT ppx - on Lovenox 40 - Dw surgeon The care for this patient was discussed with my supervising physician. Time spent for this case was approximately 31 minutes. Piter Inman Sep 08, 2020 15:56
[2020-09-08 16:00] VITALS: BP 121/73
--- NOTE | 2020-09-08 19:05 | NUR ---
NURSE HAND-OFF: Important Events on Shift:Pain meds was given x 2 Patient Status: stable Diet: clear liquid Pending Orders: CT guide needle biopsy Pending Results/Labs:n/a Pending MD notification:n/a Latest Vital Signs: Temperature 98.7 , Pulse 70 , B/P 121 /73 , Respiratory Rate 21 , O2 SAT 98 , Simple Mask, O2 Flow Rate 2.0 . Vital Sign Comment: stable Latest Dahl Fall Score: 65 Fall Risk: High Risk Safety Measures: Call light Within Reach, Bed Alarm Zone 1, Side Rails Side Rails x3, Bed position Low and Locked. Fall Precautions: Yellow Socks Door Sign Patient Fall Education Report given to JAZMIN Rivera.
--- NOTE | 2020-09-08 19:15 | NUR ---
NURSE NOTES: Received report from JAZMIN Rankin. Pt is in bed, call light within reach, bed locked and in lowest position, side rails up x3, IVF infusing well. Will continue to monitor.
[2020-09-08 20:00] VITALS: BP 159/72
[2020-09-09] VITALS: BP 140/68
[2020-09-09] MEDS: HYDROmorphone 1mg/ml Carpuject IVP PRN ×3 (01:15→16:39)
[2020-09-09 04:00] VITALS: BP 130/57
[2020-09-09] MEDS: NovoLOG Insulin Flexpen SUBQ SCH ×4 (06:30→23:40)
--- NOTE | 2020-09-09 06:47 | Hematology/Onc Progress Note ---
Assessment/Plan Assessment/Plan Laboratory data: Lab testing shows RBC 3.11, hemoglobin 9.7, hematocrit 27.4 Chemistries show sodium 130, chloride 96, glucose 168, alk phos 119 Urinalysis shows 1+ protein, 3+ glucose, 3+ ketones, 2+ blood Coagulation panel unremarkable Imagin. Comminuted, angulated, and displaced left intertrochanteric femur fracture. 2. 1.7 cm right lobe pulmonary nodule with irregular margins, suspicious for primary lung malignancy. Consider tissue biopsy for further evaluation. 3. 8 mm left lingular pulmonary nodule. Consider PET CT, short interval follow-up CT, versus tissue biopsy for further evaluation. Impression: # 1.7 cm right lobe pulmonary nodule, also with lingular mass --> CT of the abdomen and pelvis showed a 1.7 cm right lobe pulmonary nodule which is very suspicious for lung cancer --> Ordered tissue biopsy for further evaluation --> Discuss care plan once she recovers from surgery # Anemia likely related from hemodilution --> obtain anemia panel --> repeat cbc --> hgb 9.7 # Left femur fracture --> Left hip pinning operation scheduled by Dr. Corral --> Ortho surgery input appreciated # Cholelithiasis without evidence of cholecystitis --> monitor # Hyponatremia --> ivfs # Hypochloremia --> monitor and check AM labs # Diabetes mellitus with hyperglycemia --> monitor BGs --> we will initiate insulin sensitive scale # COVID-19 infection; could be mild case or early phase --> per pulm # DVT ppx post surgery Appreciate consultation and corinne Rn Subjective HEENT: Denies: no symptoms, eye pain, blurred vision, tearing, double vision, ear pain, ear discharge, nose pain, nose congestion, throat pain, throat swelling, mouth pain, mouth swelling, other Cardiovascular: Denies: no symptoms, chest pain, edema, irregular heart rate, lightheadedness, palpitations, syncope, other Respiratory: Denies: no symptoms, cough, shortness of breath, SOB with excertion, SOB at rest, sputum, wheezing, other Gastrointestinal/Abdominal: Denies: no symptoms, abdomen distended, abdominal pain, black stools, tarry stools, blood in stool, constipated, diarrhea, difficulty swallowing, nausea, poor appetite, poor fluid intake, rectal bleeding, vomiting, other Genitourinary: Denies: no symptoms, burning, discharge, frequency, flank pain, hematuria, incontinence, pain, urgency, other Neurologic/Psychiatric: Denies: no symptoms, anxiety, depressed, emotional problems, headache, numbness, paresthesia, pre-existing deficit, seizure, tingling, tremors, weakness, other Endocrine: Denies: no symptoms, excessive sweating, flushing, intolerance to cold, intolerance to heat, increased hunger, increased thirst, increased urine, unexplained weight gain, unexplained weight loss, other Hematologic/Lymphatic: Denies: no symptoms, anemia, easy bleeding, easy bruising, adenopathy, other Allergies: Coded Allergies: No Known Allergies (Unverified , 09/06/20) Subjective 09/09 meds reviewed, no f/c, lovenox sq, pending a biopsy Objective Objective Current Medications Medications (Trade) Dose Ordered Sig/Serena Route PRN Reason Start Time Stop Time Status Last Admin Dose Admin Dextrose (Dextrose 50%) 25 ml Q30M PRN IV Hypoglycemia 09/07/20 15:00 12/06/20 14:59 Dextrose (Dextrose 50%) 50 ml Q30M PRN IV Hypoglycemia 09/07/20 15:00 12/06/20 14:59 Enoxaparin Sodium (Lovenox) 40 mg DAILY SUBQ 09/09/20 09:00 10/09/20 08:59 Hydromorphone HCl (Dilaudid) 1 mg Q4H PRN IVP Breakthrough Pain 6-10 09/08/20 12:45 09/15/20 12:44 09/09/20 01:15 Insulin Aspart (NovoLOG) BEFORE MEALS AND HS SUBQ 09/07/20 16:30 12/06/20 16:29 09/08/20 12:38 Lidocaine HCl (Xylocaine 1% 30ml) 30 ml NOW PRN INJ Radiology Procedure 09/08/20 06:45 09/10/20 06:44 Potassium Chloride 20 meq/ Sodium Chloride 1,010 ml @ 75 mls/hr [id number] IV 09/07/20 17:00 10/07/20 16:59 09/08/20 20:11 Sodium Bicarbonate (Sodium Bicarbonate 4%) 1 ml NOW PRN IV Radiology Procedure 09/08/20 06:45 09/10/20 06:44 Last 24 Hour Vital Signs Date Time Temp Pulse Resp B/P (MAP) Pulse Ox O2 Delivery O2 Flow Rate FiO2 09/09/20 04:00 99.1 80 20 130/57 (81) 97 09/09/20 00:00 98.9 109 20 140/68 (92) 97 09/08/20 21:00 Nasal Cannula 2.0 09/08/20 20:00 98.4 89 22 159/72 (101) 98 09/08/20 16:00 98.7 70 21 121/73 (89) 98 09/08/20 12:00 98.3 71 21 116/60 (78) 97 09/08/20 10:35 78 20 98 09/08/20 10:34 78 22 98 09/08/20 09:00 Nasal Cannula 2.0 09/08/20 08:00 98.4 98 21 133/60 (84) 99 09/08/20 04:00 97.0 107 19 147/72 (97) 97 09/08/20 00:00 99.3 100 20 157/72 (100) 98 09/07/20 21:00 Nasal Cannula 2.0 09/07/20 20:00 98.1 97 18 140/62 (88) 99 09/07/20 17:25 98.6 09/07/20 16:00 98.6 85 16 108/51 (70) 96 09/07/20 15:45 96.9 85 16 119/62 (81) 96 09/07/20 15:15 97.8 85 16 125/56 (79) 96 09/07/20 14:45 98.7 85 16 114/66 (82) 96 09/07/20 14:30 98.0 80 16 118/63 (81) 96 09/07/20 14:15 98.7 85 16 127/66 (86) 96 09/07/20 14:05 Nasal Cannula 6.0 09/07/20 14:00 98.8 85 16 135/51 (79) 96 09/07/20 13:45 97.8 09/07/20 13:45 97.8 09/07/20 13:32 98.6 90 20 155/75 100 Simple Mask 6 09/07/20 13:20 89 18 156/70 100 Simple Mask 6 09/07/20 13:10 89 20 149/77 100 Simple Mask 6 09/07/20 13:05 86 19 165/65 100 Simple Mask 6 09/07/20 13:00 88 20 155/67 100 Simple Mask 6 09/07/20 12:55 86 18 138/68 100 Simple Mask 6 09/07/20 12:50 84 22 153/65 100 Simple Mask 6 09/07/20 12:45 88 20 167/61 100 Simple Mask 6 09/07/20 12:42 98.0 87 21 171/72 100 Simple Mask 6 09/07/20 10:35 98.5 98 18 139/65 96 09/07/20 10:26 98.5 09/07/20 10:23 98.5 98 18 139/65 96 09/07/20 07:15 98.6 78 16 145/78 99 09/07/20 06:48 98.6 Intake and Output 09/08/20 09/09/20 19:00 07:00 Intake Total 1100 ml Output Total 900 ml Balance 200 ml Intake Oral 200 ml IV Total 900 ml Output Urine Total 900 ml Labs Test 09/06/20 18:16 09/07/20 07:15 09/07/20 12:40 09/07/20 16:36 White Blood Count 7.1 K/UL (4.8-10.8) Red Blood Count 3.11 M/UL (4.20-5.40) Hemoglobin 9.7 G/DL (12.0-16.0) Hematocrit 27.4 % (37.0-47.0) Mean Corpuscular Volume 88 FL (80-99) Mean Corpuscular Hemoglobin 31.1 PG (27.0-31.0) Mean Corpuscular Hemoglobin Concent 35.3 G/DL (32.0-36.0) Red Cell Distribution Width 14.4 % (11.6-14.8) Platelet Count 284 K/UL (150-450) Mean Platelet Volume 7.5 FL (6.5-10.1) Neutrophils (%) (Auto) 75.4 % (45.0-75.0) Lymphocytes (%) (Auto) 16.1 % (20.0-45.0) Monocytes (%) (Auto) 6.3 % (1.0-10.0) Eosinophils (%) (Auto) 1.2 % (0.0-3.0) Basophils (%) (Auto) 1.0 % (0.0-2.0) Prothrombin Time 10.7 SEC (9.30-11.50) Prothromb Time International Ratio 1.0 (0.9-1.1) Activated Partial Thromboplast Time 25 SEC (23-33) Sodium Level 130 MMOL/L (136-145) Potassium Level 3.7 MMOL/L (3.5-5.1) Chloride Level 96 MMOL/L (98-107) Carbon Dioxide Level 26 MMOL/L (21-32) Anion Gap 8 mmol/L (5-15) Blood Urea Nitrogen 18 mg/dL (7-18) Creatinine 0.9 MG/DL (0.55-1.30) Estimat Glomerular Filtration Rate > 60 mL/min (>60) Glucose Level 168 MG/DL (74-106) Calcium Level 8.8 MG/DL (8.5-10.1) Total Bilirubin 0.4 MG/DL (0.2-1.0) Aspartate Amino Transf (AST/SGOT) 27 U/L (15-37) Alanine Aminotransferase (ALT/SGPT) 15 U/L (12-78) Alkaline Phosphatase 119 U/L (46-116) Total Protein 8.4 G/DL (6.4-8.2) Albumin 3.4 G/DL (3.4-5.0) Globulin 5.0 g/dL Albumin/Globulin Ratio 0.7 (1.0-2.7) Urine Color Yellow Urine Appearance Clear Urine pH 6 (4.5-8.0) Urine Specific [place] 1.015 (1.005-1.035) Urine Protein 1+ (NEGATIVE) Urine Glucose (UA) 3+ (NEGATIVE) Urine Ketones 3+ (NEGATIVE) Urine Blood 2+ (NEGATIVE) Urine Nitrite Negative (NEGATIVE) Urine Bilirubin Negative (NEGATIVE) Urine Urobilinogen Normal MG/DL (0.0-1.0) Urine Leukocyte Esterase Negative (NEGATIVE) Urine RBC 5-10 /HPF (0 - 2) Urine WBC 0-2 /HPF (0 - 2) Urine Squamous Epithelial Cells Few /LPF (NONE/OCC) Urine Bacteria Few /HPF (NONE) POC Whole Blood Glucose 113 MG/DL (74-106) Test 09/07/20 20:32 09/08/20 06:00 09/08/20 12:19 09/08/20 20:16 POC Whole Blood Glucose 99 MG/DL (74-106) 145 MG/DL (74-106) 122 MG/DL (74-106) White Blood Count 5.9 K/UL (4.8-10.8) Red Blood Count 2.72 M/UL (4.20-5.40) Hemoglobin 8.2 G/DL (12.0-16.0) Hematocrit 26.2 % (37.0-47.0) Mean Corpuscular Volume 96 FL (80-99) Mean Corpuscular Hemoglobin 30.1 PG (27.0-31.0) Mean Corpuscular Hemoglobin Concent 31.2 G/DL (32.0-36.0) Red Cell Distribution Width 12.7 % (11.6-14.8) Platelet Count 232 K/UL (150-450) Mean Platelet Volume 7.3 FL (6.5-10.1) Neutrophils (%) (Auto) 81.3 % (45.0-75.0) Lymphocytes (%) (Auto) 10.1 % (20.0-45.0) Monocytes (%) (Auto) 8.3 % (1.0-10.0) Eosinophils (%) (Auto) 0.1 % (0.0-3.0) Basophils (%) (Auto) 0.3 % (0.0-2.0) Sodium Level 131 MMOL/L (136-145) Potassium Level 3.6 MMOL/L (3.5-5.1) Chloride Level 97 MMOL/L (98-107) Carbon Dioxide Level 26 MMOL/L (21-32) Anion Gap 8 mmol/L (5-15) Blood Urea Nitrogen 14 mg/dL (7-18) Creatinine 0.7 MG/DL (0.55-1.30) Estimat Glomerular Filtration Rate > 60 mL/min (>60) Glucose Level 124 MG/DL (74-106) Hemoglobin A1c 7.8 % (4.3-6.0) Calcium Level 7.7 MG/DL (8.5-10.1) Ferritin 113 NG/ML (8-388) Total Bilirubin 0.4 MG/DL (0.2-1.0) Aspartate Amino Transf (AST/SGOT) 32 U/L (15-37) Alanine Aminotransferase (ALT/SGPT) 20 U/L (12-78) Alkaline Phosphatase 85 U/L (46-116) Total Protein 7.1 G/DL (6.4-8.2) Albumin 2.7 G/DL (3.4-5.0) Globulin 4.4 g/dL Albumin/Globulin Ratio 0.6 (1.0-2.7) Height (Feet): 5 Height (Inches): 0.00 Weight (Pounds): 120 Objective PE: VS: reviewed HEENT: Head examination reveals that the head is normocephalic, atraumatic without deformity or unusual swelling. Chest and Lung: Reveals clear, normal, symmetrical breath sounds with no adventitious sound. Cardiovascular: Reveals normal S1, S2 without murmurs, rubs or clicks Abdomen: Soft with no tenderness or organomegaly Rectal: Deferred Musculoskeletal: Tenderness to palpation of the left hip region. Left hip is externally rotated with knees flexed in bed. neurological: Cranial nerves II to XII are intact. Gait is normal without ataxia. DTRs are normal. Babinski is downgoing. Teofilo Orr MD Sep 09, 2020 06:47
--- NOTE | 2020-09-09 07:25 | NUR ---
NURSE HAND-OFF: Important Events on Shift: Dilaudid administered 2 times Patient Status: Awake Diet: clear liquid Pending Orders: Pending Results/Labs: Pending MD notification: Latest Vital Signs: Temperature 99.1 , Pulse 80 , B/P 130 /57 , Respiratory Rate 20 , O2 SAT 97 , Simple Mask, O2 Flow Rate 2.0 . Vital Sign Comment: VSS Latest Dahl Fall Score: 65 Fall Risk: High Risk Safety Measures: Call light Within Reach, Bed Alarm Zone 1, Side Rails Side Rails x3, Bed position Low and Locked. Fall Precautions: Yellow Socks Door Sign Patient Fall Education Report given to JAZMIN Rankin.
--- NOTE | 2020-09-09 07:30 | NUR ---
NURSE NOTES: Received report from JAZMIN Rivera. Rounding done. Pt a/o x 4, Maldivian speaking. No SOB noted with NC 2L/min. 1/2NS + KCl is running @75ml/hr via Lt AC. Lt hip dressing is dry/intact. c/o left hip pain and pain meds will be given as MD ordered. Bed in lowest position, call light within reach. Will continue to monitor.
[2020-09-09 08:00] VITALS: BP 127/62
--- NOTE | 2020-09-09 08:41 | Pulmonology Progress Note ---
Subjective ROS Limited/Unobtainable: No Interval Events: s/p left hip pinning Constitutional: Reports: no symptoms HEENT: Repors: no symptoms Respiratory: Reports: no symptoms Cardiovascular: Reports: no symptoms Gastrointestinal/Abdominal: Reports: no symptoms Allergies: Coded Allergies: No Known Allergies (Unverified , 09/06/20) Objective Last 24 Hour Vital Signs Date Time Temp Pulse Resp B/P (MAP) Pulse Ox O2 Delivery O2 Flow Rate FiO2 09/09/20 04:00 99.1 80 20 130/57 (81) 97 09/09/20 00:00 98.9 109 20 140/68 (92) 97 09/08/20 21:00 Nasal Cannula 2.0 09/08/20 20:00 98.4 89 22 159/72 (101) 98 09/08/20 16:00 98.7 70 21 121/73 (89) 98 09/08/20 12:00 98.3 71 21 116/60 (78) 97 09/08/20 10:35 78 20 98 09/08/20 10:34 78 22 98 09/08/20 09:00 Nasal Cannula 2.0 Intake and Output 09/08/20 09/09/20 19:00 07:00 Intake Total 1100 ml 360 ml Output Total 900 ml 450 ml Balance 200 ml -90 ml Intake Oral 200 ml IV Total 900 ml Other 360 ml Output Urine Total 900 ml 450 ml Objective 09/09 on 2L NC saturating well 09/08 on 2L NC saturating well General Appearance: WD/WN HEENT: atraumatic Respiratory: lungs clear Cardiovascular: normal rate, regular rhythm Abdomen: soft, non tender Microbiology Date/Time Source Procedure Growth Status 09/06/20 18:16 Nasopharynx SARS-CoV-2 RdRp Gene Assay - Final Complete Laboratory Tests 09/08/20 12:19: POC Whole Blood Glucose 145H 09/08/20 20:16: POC Whole Blood Glucose 122H Current Medications Medications (Trade) Dose Ordered Sig/Serena Route PRN Reason Start Time Stop Time Status Last Admin Dose Admin Dextrose (Dextrose 50%) 25 ml Q30M PRN IV Hypoglycemia 09/07/20 15:00 12/06/20 14:59 Dextrose (Dextrose 50%) 50 ml Q30M PRN IV Hypoglycemia 09/07/20 15:00 12/06/20 14:59 Enoxaparin Sodium (Lovenox) 40 mg DAILY SUBQ 09/09/20 09:00 10/09/20 08:59 Hydromorphone HCl (Dilaudid) 1 mg Q4H PRN IVP Breakthrough Pain 6-10 09/08/20 12:45 09/15/20 12:44 09/09/20 01:15 Insulin Aspart (NovoLOG) BEFORE MEALS AND HS SUBQ 09/07/20 16:30 12/06/20 16:29 09/08/20 12:38 Lidocaine HCl (Xylocaine 1% 30ml) 30 ml NOW PRN INJ Radiology Procedure 09/08/20 06:45 09/10/20 06:44 Potassium Chloride 20 meq/ Sodium Chloride 1,010 ml @ 75 mls/hr [id number] IV 09/07/20 17:00 10/07/20 16:59 09/08/20 20:11 Sodium Bicarbonate (Sodium Bicarbonate 4%) 1 ml NOW PRN IV Radiology Procedure 09/08/20 06:45 09/10/20 06:44 Assessment/Plan Assessment/Plan 1. Left femur fracture - s/p Left hip pinning operation by Dr. Corral 2. 1.7 cm right lobe pulmonary nodule -CT of the abdomen and pelvis showed a 1.7 cm right lobe pulmonary nodule which is very suspicious for lung cancer -Further history is required either from patient or patient's family. -scheduled for CT guided needle Bx of lung nodule on 09/12/[address] Radha thompson - appreciate heme-onc consult 3. Cholelithiasis without evidence of cholecystitis - monitor 4. Anemia, likely from hemodilution - heme-onc consult appreciated - AM lab ordered but not drawn 5. Hyponatremia - monitor and check AM labs - - AM lab ordered but not drawn 6. Hypochloremia - monitor and check AM labs - AM lab ordered but not drawn 7. Diabetes mellitus with hyperglycemia - monitor BGs - we will initiate insulin sensitive scale 8. COVID-19 infection; could be mild case or early phase - given her normoxemia on room air, without SOB, fever, cough, no specific therapy required for COVID-19 at this time - Monitor SaO2 and provide supplemental oxygen as needed 9. Hypertension - Monitor BP 10. DVT ppx - on Lovenox 40 - Dw surgeon The care for this patient was discussed with my supervising physician. Time spent for this case was approximately 31 minutes. Piter Inman Sep 09, 2020 08:41 Yuval Granger MD Sep 09, 2020 15:39
[2020-09-09] MEDS: Potassium Chloride 20 MEQ in 1/2 NS 1000ml 1,000 ML IV SCH ×2 (08:53→23:31)
[2020-09-09] MEDS: Enoxaparin 40mg Inj SUBQ SCH (08:54)
[2020-09-09 09:19] LABS: ANION GAP 9 mmol/L (5-15); BLOOD UREA NITROGEN 13 mg/dL (7-18); CALCIUM 7.8 MG/DL (8.5-10.1); CARBON DIOXIDE 24 MMOL/L (21-32); CHLORIDE 94 MMOL/L (98-107); CREATININE 0.7 MG/DL (0.55-1.30); POTASSIUM 3.8 MMOL/L (3.5-5.1); SODIUM 127 MMOL/L (136-145)
[2020-09-09 09:22] LABS: BASOPHILS % (AUTO) 0.3 % (0.0-2.0); HEMATOCRIT 28.1 % (37.0-47.0); HEMOGLOBIN 8.6 G/DL (12.0-16.0); LYMPHOCYTES % (AUTO) 9.6 % (20.0-45.0); MEAN CORPUSCULAR VOLUME 97 FL (80-99); MONOCYTES % (AUTO) 8.7 % (1.0-10.0); NEUTROPHILS % (AUTO) 81.4 % (45.0-75.0); PLATELET COUNT 249 K/UL (150-450); RED BLOOD COUNT 2.88 M/UL (4.20-5.40); RED CELL DISTRIBUTION WIDTH 12.8 % (11.6-14.8); WHITE BLOOD COUNT 10.7 K/UL (4.8-10.8)
--- NOTE | 2020-09-09 09:23 | NUR ---
NURSE NOTES: Pt had temp 100.4 and JUAN M Inman was notified. JUAN M Inman ordered Tylenol 650mg Q6 PRN for temperature. Noted and carried out.
[2020-09-09 12:00] VITALS: BP 125/46
[2020-09-09 16:00] VITALS: BP 148/61
--- NOTE | 2020-09-09 16:59 | NUR ---
CASE MANAGEMENT: REVIEW 09/09/2020 SI;LEFT HIP PINNING VS: T 98.1 HR 83 RR 20 B/P 148/61 SATS 96% ON 2L/NC LABS: NA 127 CL 94 GLU 166 CA 7.8 IS:KCL IV @ 75 ML/HR INSULIN ASPART SUBQ AC/HS MED/SURG
--- NOTE | 2020-09-09 19:19 | NUR ---
NURSE HAND-OFF: Important Events on Shift:Pain meds was given x 2 Patient Status: stable Diet: clear liquid Pending Orders: CT guid needle biopsy Pending Results/Lab: n/a Pending MD notification:n/a Latest Vital Signs: Temperature 98.1 , Pulse 83 , B/P 148 /61 , Respiratory Rate 20 , O2 SAT 96 , Simple Mask, O2 Flow Rate 2.0 . Vital Sign Comment: stable Latest Dahl Fall Score: 65 Fall Risk: High Risk Safety Measures: Call light Within Reach, Bed Alarm Zone 1, Side Rails Side Rails x3, Bed position Low and Locked. Fall Precautions: Yellow Socks Door Sign Patient Fall Education Report given to JAZMIN Cordero.
[2020-09-09 20:00] VITALS: BP 127/56
[2020-09-10] VITALS: BP 135/53
[2020-09-10] MEDS: HYDROmorphone 1mg/ml Carpuject IVP PRN ×4 (00:08→23:56)
[2020-09-10 04:00] VITALS: BP 143/58
[2020-09-10] MEDS: NovoLOG Insulin Flexpen SUBQ SCH ×4 (06:44→21:00)
--- NOTE | 2020-09-10 07:35 | NUR ---
NURSE NOTES: RECEIVED PATIENT A/A/OX4, BARBADIAN SPEAKING. HOB ELEVATED. SURGICAL DRSG ON LEFT HIP DRY AND INTACT. SKIN IS INTACT. PIV PATENT AND INTACT. IVF INFUSING WELL. ON O2 2L VIA NC. NO ACUTE CARDIO-RESP DISTRESS NOTED. KEEP BED IN THE LOWEST POSITION. SIDERAILS ARE UPX3. CALL LIGHT IS WITHIN REACH. WILL CONT TO MONITOR.
[2020-09-10 07:48] LABS: ANION GAP 7 mmol/L (5-15); BLOOD UREA NITROGEN 11 mg/dL (7-18); CALCIUM 8.5 MG/DL (8.5-10.1); CARBON DIOXIDE 26 MMOL/L (21-32); CHLORIDE 95 MMOL/L (98-107); CREATININE 0.6 MG/DL (0.55-1.30); POTASSIUM 3.9 MMOL/L (3.5-5.1); SODIUM 128 MMOL/L (136-145)
--- NOTE | 2020-09-10 07:51 | NUR ---
NURSE HAND-OFF: Important Events on Shift:[PAIN MANAGEMENT/DILAUDID 1MG IV Q4 HOURS] Patient Status: [STABLE] Diet: [CLEAR LIQUID] Pending Orders: [CT GUIDED NEEDLE BIOPSY, 09/12/20] Pending Results/Labs:[] Pending MD notification:[] Latest Vital Signs: Temperature 97.8 , Pulse 96 , B/P 143 /58 , Respiratory Rate 20 , O2 SAT 97 , Simple Mask, O2 Flow Rate 2.0 . Vital Sign Comment: [STABLE, AFEBRILE] Latest Dahl Fall Score: 65 Fall Risk: High Risk Safety Measures: Call light Within Reach, Bed Alarm Zone 1, Side Rails Side Rails x3, Bed position Low and Locked. Fall Precautions: Yellow Socks Door Sign Patient Fall Education Report given to [YANN PEARSON].
[2020-09-10 08:00] VITALS: BP 154/49
[2020-09-10 08:15] LABS: HEMATOCRIT 24.6 % (37.0-47.0); HEMOGLOBIN 7.9 G/DL (12.0-16.0); MEAN CORPUSCULAR VOLUME 97 FL (80-99); PLATELET COUNT 243 K/UL (150-450); RED BLOOD COUNT 2.53 M/UL (4.20-5.40); RED CELL DISTRIBUTION WIDTH 13.3 % (11.6-14.8); WHITE BLOOD COUNT 9.5 K/UL (4.8-10.8)
[2020-09-10] MEDS: Enoxaparin 40mg Inj SUBQ SCH (08:35)
--- NOTE | 2020-09-10 08:49 | Pulmonology Progress Note ---
Subjective ROS Limited/Unobtainable: No Interval Events: s/p left hip pinning Constitutional: Reports: no symptoms HEENT: Repors: no symptoms Respiratory: Reports: no symptoms Cardiovascular: Reports: no symptoms Gastrointestinal/Abdominal: Reports: no symptoms Allergies: Coded Allergies: No Known Allergies (Unverified , 09/06/20) Objective Last 24 Hour Vital Signs Date Time Temp Pulse Resp B/P (MAP) Pulse Ox O2 Delivery O2 Flow Rate FiO2 09/10/20 07:00 97.8 09/10/20 04:00 97.8 96 20 143/58 (86) 97 09/10/20 00:38 98.2 09/10/20 00:00 98.2 93 20 135/53 (80) 98 09/09/20 21:00 Nasal Cannula 2.0 09/09/20 20:00 98.0 89 20 127/56 (79) 96 09/09/20 16:00 98.1 83 20 148/61 (90) 96 09/09/20 12:00 98.1 94 20 125/46 (72) 97 09/09/20 12:00 98.1 09/09/20 09:00 Nasal Cannula 2.0 Intake and Output 09/09/20 09/10/20 19:00 07:00 Intake Total 1275 ml 240 ml Output Total 350 ml 950 ml Balance 925 ml -710 ml Intake Oral 600 ml 240 ml IV Total 675 ml Output Urine Total 350 ml 950 ml # Voids 1 Objective 09/10 no change 09/09 on 2L NC saturating well 09/08 on 2L NC saturating well General Appearance: WD/WN HEENT: atraumatic Respiratory: lungs clear Cardiovascular: normal rate, regular rhythm Abdomen: soft, non tender Laboratory Tests 09/09/20 12:07: POC Whole Blood Glucose 206H 09/09/20 23:35: POC Whole Blood Glucose [Pending] 09/10/20 05:48: POC Whole Blood Glucose 144H 09/10/20 06:15: White Blood Count 9.5, Red Blood Count 2.53L, Hemoglobin 7.9L, Hematocrit 24.6L, Mean Corpuscular Volume 97, Mean Corpuscular Hemoglobin 31.2H, Mean Corpuscular Hemoglobin Concent 32.2, Red Cell Distribution Width 13.3, Platelet Count 243, Mean Platelet Volume 6.6, Neutrophils (%) (Auto) , Lymphocytes (%) (Auto) , Mon ocytes (%) (Auto) , Eosinophils (%) (Auto) , Basophils (%) (Auto) , Neutrophils % (Manual) [Pending], Lymphocytes % (Manual) [Pending], Platelet Estimate [Pending], Platelet Morphology [Pending], Sodium Level 128L, Potassium Level 3.9, Chloride Level 95L, Carbon Dioxide Level 26, Anion Gap 7, Blood Urea Nitrogen 11, Creatinine 0.6, Estimat Glomerular Filtration Rate > 60, Glucose Level 151H, Calcium Level 8.5 Current Medications Medications (Trade) Dose Ordered Sig/Serena Route PRN Reason Start Time Stop Time Status Last Admin Dose Admin Acetaminophen (Tylenol) 650 mg Q6H PRN ORAL Temp >100.5 09/09/20 09:30 10/09/20 09:29 09/09/20 09:38 Dextrose (Dextrose 50%) 25 ml Q30M PRN IV Hypoglycemia 09/07/20 15:00 12/06/20 14:59 Dextrose (Dextrose 50%) 50 ml Q30M PRN IV Hypoglycemia 09/07/20 15:00 12/06/20 14:59 Enoxaparin Sodium (Lovenox) 40 mg DAILY SUBQ 09/09/20 09:00 10/09/20 08:59 09/10/20 08:35 Hydromorphone HCl (Dilaudid) 1 mg Q4H PRN IVP Breakthrough Pain 6-10 09/08/20 12:45 09/15/20 12:44 09/10/20 06:30 Insulin Aspart (NovoLOG) BEFORE MEALS AND HS SUBQ 09/07/20 16:30 12/06/20 16:29 09/10/20 06:44 Potassium Chloride 20 meq/ Sodium Chloride 1,010 ml @ 75 mls/hr [id number] IV 09/07/20 17:00 10/07/20 16:59 09/09/20 23:31 Assessment/Plan Assessment/Plan 1. Left femur fracture - s/p Left hip pinning operation by Dr. Corral 2. 1.7 cm right lobe pulmonary nodule -CT of the abdomen and pelvis showed a 1.7 cm right lobe pulmonary nodule which is very suspicious for lung cancer -Further history is required either from patient or patient's family. -scheduled for CT guided needle Bx of lung nodule on 09/12/[address] Orr - appreciate heme-onc consult 3. Cholelithiasis without evidence of cholecystitis - monitor 4. Anemia, likely from hemodilution - heme-onc consult appreciated - Hgb 7.9 - IV fluid DC'd 5. Hyponatremia - IV fluid DC'd - monitor 6. Hypochloremia - IV fluid DC'd - monitor 7. Diabetes mellitus with hyperglycemia - monitor BGs - on insulin sensitive scale 8. COVID-19 infection; could be mild case or early phase - given her normoxemia on room air, without SOB, fever, cough, no specific therapy required for COVID-19 at this time - Monitor SaO2 and provide supplemental oxygen as needed 9. Hypertension - in control 10. DVT ppx - on Lovenox 40 - D/w surgeon planning to dc to long-term tomorrow The care for this patient was discussed with my supervising physician. Time spent for this case was approximately 31 minutes. Piter Inman Sep 10, 2020 08:49
--- NOTE | 2020-09-10 10:53 | Hematology/Onc Progress Note ---
Assessment/Plan Assessment/Plan Imagin. Comminuted, angulated, and displaced left intertrochanteric femur fracture. 2. 1.7 cm right lobe pulmonary nodule with irregular margins, suspicious for primary lung malignancy. Consider tissue biopsy for further evaluation. 3. 8 mm left lingular pulmonary nodule. Consider PET CT, short interval follow-up CT, versus tissue biopsy for further evaluation. Impression # 1.7 cm right lobe pulmonary nodule, also with lingular mass --> CT of the abdomen and pelvis showed a 1.7 cm right lobe pulmonary nodule which is very suspicious for lung cancer --> Ordered tissue biopsy for further evaluation --> Discuss care plan once she recovers from surgery # Anemia likely related from hemodilution --> obtain anemia panel --> repeat cbc --> hgb 9.7 # Left femur fracture --> Left hip pinning operation scheduled by Dr. Corral --> Ortho surgery input appreciated # Cholelithiasis without evidence of cholecystitis --> monitor # Hyponatremia --> ivfs # Hypochloremia --> monitor and check AM labs # Diabetes mellitus with hyperglycemia --> monitor BGs --> we will initiate insulin sensitive scale # COVID-19 infection; could be mild case or early phase --> per pulm # DVT ppx post surgery Appreciate consultation and dw Rn Subjective Allergies: Coded Allergies: No Known Allergies (Unverified , 09/06/20) Subjective Subjective: 1/2: no acute events reported. onm Lovenox sq, dc planning per primary care team Objective Objective Current Medications Medications (Trade) Dose Ordered Sig/Serena Route PRN Reason Start Time Stop Time Status Last Admin Dose Admin Acetaminophen (Tylenol) 650 mg Q6H PRN ORAL Temp >100.5 09/09/20 09:30 10/09/20 09:29 09/09/20 09:38 Dextrose (Dextrose 50%) 25 ml Q30M PRN IV Hypoglycemia 09/07/20 15:00 12/06/20 14:59 Dextrose (Dextrose 50%) 50 ml Q30M PRN IV Hypoglycemia 09/07/20 15:00 12/06/20 14:59 Enoxaparin Sodium (Lovenox) 40 mg DAILY SUBQ 09/09/20 09:00 10/09/20 08:59 09/10/20 08:35 Hydromorphone HCl (Dilaudid) 1 mg Q4H PRN IVP Breakthrough Pain 6-10 09/08/20 12:45 09/15/20 12:44 09/10/20 06:30 Insulin Aspart (NovoLOG) BEFORE MEALS AND HS SUBQ 09/07/20 16:30 12/06/20 16:29 09/10/20 06:44 Last 24 Hour Vital Signs Date Time Temp Pulse Resp B/P (MAP) Pulse Ox O2 Delivery O2 Flow Rate FiO2 09/10/20 08:00 98.3 96 21 154/49 (84) 96 09/10/20 07:00 97.8 09/10/20 04:00 97.8 96 20 143/58 (86) 97 09/10/20 00:38 98.2 09/10/20 00:00 98.2 93 20 135/53 (80) 98 09/09/20 21:00 Nasal Cannula 2.0 09/09/20 20:00 98.0 89 20 127/56 (79) 96 09/09/20 16:00 98.1 83 20 148/61 (90) 96 09/09/20 12:00 98.1 94 20 125/46 (72) 97 09/09/20 12:00 98.1 09/09/20 09:00 Nasal Cannula 2.0 09/09/20 08:00 100.4 94 20 127/62 (83) 98 09/09/20 04:00 99.1 80 20 130/57 (81) 97 09/09/20 00:00 98.9 109 20 140/68 (92) 97 09/08/20 21:00 Nasal Cannula 2.0 09/08/20 20:00 98.4 89 22 159/72 (101) 98 09/08/20 16:00 98.7 70 21 121/73 (89) 98 09/08/20 12:00 98.3 71 21 116/60 (78) 97 Intake and Output 09/09/20 09/10/20 19:00 07:00 Intake Total 1275 ml 240 ml Output Total 350 ml 950 ml Balance 925 ml -710 ml Intake Oral 600 ml 240 ml IV Total 675 ml Output Urine Total 350 ml 950 ml # Voids 1 Labs Test 09/07/20 12:40 09/07/20 16:36 09/07/20 20:32 09/08/20 06:00 POC Whole Blood Glucose 113 MG/DL (74-106) 99 MG/DL (74-106) White Blood Count 5.9 K/UL (4.8-10.8) Red Blood Count 2.72 M/UL (4.20-5.40) Hemoglobin 8.2 G/DL (12.0-16.0) Hematocrit 26.2 % (37.0-47.0) Mean Corpuscular Volume 96 FL (80-99) Mean Corpuscular Hemoglobin 30.1 PG (27.0-31.0) Mean Corpuscular Hemoglobin Concent 31.2 G/DL (32.0-36.0) Red Cell Distribution Width 12.7 % (11.6-14.8) Platelet Count 232 K/UL (150-450) Mean Platelet Volume 7.3 FL (6.5-10.1) Neutrophils (%) (Auto) 81.3 % (45.0-75.0) Lymphocytes (%) (Auto) 10.1 % (20.0-45.0) Monocytes (%) (Auto) 8.3 % (1.0-10.0) Eosinophils (%) (Auto) 0.1 % (0.0-3.0) Basophils (%) (Auto) 0.3 % (0.0-2.0) Sodium Level 131 MMOL/L (136-145) Potassium Level 3.6 MMOL/L (3.5-5.1) Chloride Level 97 MMOL/L (98-107) Carbon Dioxide Level 26 MMOL/L (21-32) Anion Gap 8 mmol/L (5-15) Blood Urea Nitrogen 14 mg/dL (7-18) Creatinine 0.7 MG/DL (0.55-1.30) Estimat Glomerular Filtration Rate > 60 mL/min (>60) Glucose Level 124 MG/DL (74-106) Hemoglobin A1c 7.8 % (4.3-6.0) Calcium Level 7.7 MG/DL (8.5-10.1) Ferritin 113 NG/ML (8-388) Total Bilirubin 0.4 MG/DL (0.2-1.0) Aspartate Amino Transf (AST/SGOT) 32 U/L (15-37) Alanine Aminotransferase (ALT/SGPT) 20 U/L (12-78) Alkaline Phosphatase 85 U/L (46-116) Total Protein 7.1 G/DL (6.4-8.2) Albumin 2.7 G/DL (3.4-5.0) Globulin 4.4 g/dL Albumin/Globulin Ratio 0.6 (1.0-2.7) Test 09/08/20 12:19 09/08/20 20:16 09/09/20 08:30 09/09/20 12:07 POC Whole Blood Glucose 145 MG/DL (74-106) 122 MG/DL (74-106) 206 MG/DL (74-106) White Blood Count 10.7 K/UL (4.8-10.8) Red Blood Count 2.88 M/UL (4.20-5.40) Hemoglobin 8.6 G/DL (12.0-16.0) Hematocrit 28.1 % (37.0-47.0) Mean Corpuscular Volume 97 FL (80-99) Mean Corpuscular Hemoglobin 29.9 PG (27.0-31.0) Mean Corpuscular Hemoglobin Concent 30.7 G/DL (32.0-36.0) Red Cell Distribution Width 12.8 % (11.6-14.8) Platelet Count 249 K/UL (150-450) Mean Platelet Volume 7.3 FL (6.5-10.1) Neutrophils (%) (Auto) 81.4 % (45.0-75.0) Lymphocytes (%) (Auto) 9.6 % (20.0-45.0) Monocytes (%) (Auto) 8.7 % (1.0-10.0) Eosinophils (%) (Auto) 0.0 % (0.0-3.0) Basophils (%) (Auto) 0.3 % (0.0-2.0) Sodium Level 127 MMOL/L (136-145) Potassium Level 3.8 MMOL/L (3.5-5.1) Chloride Level 94 MMOL/L (98-107) Carbon Dioxide Level 24 MMOL/L (21-32) Anion Gap 9 mmol/L (5-15) Blood Urea Nitrogen 13 mg/dL (7-18) Creatinine 0.7 MG/DL (0.55-1.30) Estimat Glomerular Filtration Rate > 60 mL/min (>60) Glucose Level 166 MG/DL (74-106) Calcium Level 7.8 MG/DL (8.5-10.1) Test 09/09/20 23:35 09/10/20 05:48 09/10/20 06:15 POC Whole Blood Glucose 144 MG/DL (74-106) White Blood Count 9.5 K/UL (4.8-10.8) Red Blood Count 2.53 M/UL (4.20-5.40) Hemoglobin 7.9 G/DL (12.0-16.0) Hematocrit 24.6 % (37.0-47.0) Mean Corpuscular Volume 97 FL (80-99) Mean Corpuscular Hemoglobin 31.2 PG (27.0-31.0) Mean Corpuscular Hemoglobin Concent 32.2 G/DL (32.0-36.0) Red Cell Distribution Width 13.3 % (11.6-14.8) Platelet Count 243 K/UL (150-450) Mean Platelet Volume 6.6 FL (6.5-10.1) Neutrophils (%) (Auto) % (45.0-75.0) Lymphocytes (%) (Auto) % (20.0-45.0) Monocytes (%) (Auto) % (1.0-10.0) Eosinophils (%) (Auto) % (0.0-3.0) Basophils (%) (Auto) % (0.0-2.0) Differential Total Cells Counted 100 Neutrophils % (Manual) 85 % (45-75) Lymphocytes % (Manual) 8 % (20-45) Monocytes % (Manual) 7 % (1-10) Eosinophils % (Manual) 0 % (0-3) Basophils % (Manual) 0 % (0-2) Band Neutrophils 0 % (0-8) Platelet Estimate Adequate Platelet Morphology Normal Hypochromasia 1+ Sodium Level 128 MMOL/L (136-145) Potassium Level 3.9 MMOL/L (3.5-5.1) Chloride Level 95 MMOL/L (98-107) Carbon Dioxide Level 26 MMOL/L (21-32) Anion Gap 7 mmol/L (5-15) Blood Urea Nitrogen 11 mg/dL (7-18) Creatinine 0.6 MG/DL (0.55-1.30) Estimat Glomerular Filtration Rate > 60 mL/min (>60) Glucose Level 151 MG/DL (74-106) Calcium Level 8.5 MG/DL (8.5-10.1) Height (Feet): 5 Height (Inches): 0.00 Weight (Pounds): 120 Objective PE: VS: reviewed HEENT: Head examination reveals that the head is normocephalic, atraumatic without deformity or unusual swelling. Chest and Lung: Reveals clear, normal, symmetrical breath sounds with no adventitious sound. Cardiovascular: Reveals normal S1, S2 without murmurs, rubs or clicks Abdomen: Soft with no tenderness or organomegaly Rectal: Deferred Musculoskeletal: Tenderness to palpation of the left hip region. Left hip is externally rotated with knees flexed in bed. neurological: Cranial nerves II to XII are intact. Gait is normal without ataxia. DTRs are normal. Babinski is downgoing. Nessa Winchester NP Sep 10, 2020 10:53
--- NOTE | 2020-09-10 11:10 | NUR ---
NURSE NOTES: informed dr stewart for today's H/H result. awaiting for a callback. will cont to monitor. Addendum: 09/10/20 at 1800 by OSVALDO COLON LVN no new order obtained.
--- NOTE | 2020-09-10 11:56 | NUR ---
CASE MANAGEMENT: REVIEW 09/10/2020 SI;LEFT HIP PINNING VS: T 98.3 HR 96 RR 21 B/P 154/49 SATS 96% ON 2L/NC LABS: HGB 7.9 HCT 24.6 NA 128 CL 95 GLU 151 IS:INSULIN ASPART SUBQ AC/HS MED/SURG
[2020-09-10 12:00] VITALS: BP 158/74
--- NOTE | 2020-09-10 14:18 | NUR ---
NURSE NOTES: PAIN MANAGED AND GIVEN BY ASHOK LOVING PRIOR PT EVAL. PATIENT NOT TOLERATING PT AND ABLE TO TURN PATIENT. NO ACUTE APPARENT DISTRESS NOTED. WILL CONT TO MONITOR
[2020-09-10 15:45] VITALS: BP 158/57
--- NOTE | 2020-09-10 18:58 | NUR ---
NURSE HAND-OFF: Important Events on Shift:[pain managed; pt eval; encouraged food intake; monitor for bleeding] Patient Status: [cont to monitor] Diet: [clear liq] Pending Orders: [labs; ct guided ] Pending Results/Labs:[in am; 09/12] Pending MD notification:[] Latest Vital Signs: Temperature 98.2 , Pulse 97 , B/P 158 /57 , Respiratory Rate 18 , O2 SAT 97 , Simple Mask, O2 Flow Rate 2.0 . Vital Sign Comment: [] Latest Dahl Fall Score: 65 Fall Risk: High Risk Safety Measures: Call light Within Reach, Bed Alarm Zone 2, Side Rails Side Rails x3, Bed position Low and Locked. Fall Precautions: Yellow Socks Door Sign Patient Fall Education Report given to [mitchell].
--- NOTE | 2020-09-10 19:53 | NUR ---
NURSE NOTES: Patient in bed, awake and alert x4. On NC 2L/min with no signs of distress or SOB. IVF intact and patent. Left hip dressing dry and intact. Bed locked and in lowest position, call light within reach. Bed alarm on. Will continue plan of care.
[2020-09-10 20:00] VITALS: BP 147/52
[2020-09-11] VITALS: BP 151/56
[2020-09-11 04:00] VITALS: BP 140/61
[2020-09-11 05:41] LABS: HEMATOCRIT 22.5 % (37.0-47.0); HEMOGLOBIN 7.2 G/DL (12.0-16.0); MEAN CORPUSCULAR VOLUME 95 FL (80-99); PLATELET COUNT 297 K/UL (150-450); RED BLOOD COUNT 2.36 M/UL (4.20-5.40); RED CELL DISTRIBUTION WIDTH 12.9 % (11.6-14.8); WHITE BLOOD COUNT 7.6 K/UL (4.8-10.8)
[2020-09-11] MEDS: NovoLOG Insulin Flexpen SUBQ SCH ×4 (06:00→20:48)
[2020-09-11 06:11] LABS: ANION GAP 8 mmol/L (5-15); BLOOD UREA NITROGEN 10 mg/dL (7-18); CALCIUM 8.5 MG/DL (8.5-10.1); CARBON DIOXIDE 24 MMOL/L (21-32); CHLORIDE 95 MMOL/L (98-107); CREATININE 0.6 MG/DL (0.55-1.30); POTASSIUM 3.8 MMOL/L (3.5-5.1); SODIUM 127 MMOL/L (136-145)
--- NOTE | 2020-09-11 06:59 | NUR ---
NURSE HAND-OFF: Important Events on Shift: No events Patient Status: Stable Diet: Clear liquid Pending Orders: CT guided biopsy for 08/12 Pending Results/Labs: CBC, BMP Pending MD notification: Kirby for HGB 7.2 this am Latest Vital Signs: Temperature 97.8 , Pulse 94 , B/P 140 /61 , Respiratory Rate 18 , O2 SAT 97 , Simple Mask, O2 Flow Rate 2.0 . Vital Sign Comment: N/A Latest Dahl Fall Score: 65 Fall Risk: High Risk Safety Measures: Call light Within Reach, Bed Alarm Zone 2, Side Rails Side Rails x3, Bed position Low and Locked. Fall Precautions: Yellow Socks Door Sign Patient Fall Education
--- NOTE | 2020-09-11 07:30 | NUR ---
NURSE NOTES: Pt lying in bed w/bed in lowest position and call light within reach. Pt A&Ox4; VSS; on 2L NC; and in no apparent respiratory distress. IV site intact/asymptomatic & H/L'd; F/C patent/draining; and surgical dressing C/D/I. Will continue to monitor.
[2020-09-11 08:00] VITALS: BP 154/53
--- NOTE | 2020-09-11 09:32 | Orthopedic Progress Note ---
Orthopedic - Progress Note Subjective Additional Comments Initial evaluation for Ms. Rosenthal. 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 No LOC Objective Last 24 Hour Vital Signs Date Time Temp Pulse Resp B/P (MAP) Pulse Ox O2 Delivery O2 Flow Rate FiO2 09/11/20 08:00 98.3 94 18 154/53 (86) 97 09/11/20 04:00 97.8 94 18 140/61 (87) 97 09/11/20 00:00 98.6 96 20 151/56 (87) 95 09/10/20 21:00 Nasal Cannula 2.0 09/10/20 20:00 98.9 89 20 147/52 (83) 95 09/10/20 16:23 98.2 09/10/20 16:00 98.2 09/10/20 15:45 100.6 97 18 158/57 (90) 97 09/10/20 12:58 98.0 09/10/20 12:00 98.0 98 20 158/74 (102) 99 Intake and Output 09/10/20 09/11/20 19:00 07:00 Intake Total 360 ml 400 ml Output Total 2500 ml Balance 360 ml -2100 ml Intake Oral 360 ml 400 ml Output Urine Total 2500 ml # Voids 1 Laboratory Tests Test 09/10/20 12:15 09/10/20 21:12 09/11/20 04:40 POC Whole Blood Glucose 146 MG/DL (74-106) H Pending White Blood Count 7.6 K/UL (4.8-10.8) Red Blood Count 2.36 M/UL (4.20-5.40) L Hemoglobin 7.2 G/DL (12.0-16.0) L Hematocrit 22.5 % (37.0-47.0) L Mean Corpuscular Volume 95 FL (80-99) Mean Corpuscular Hemoglobin 30.6 PG (27.0-31.0) Mean Corpuscular Hemoglobin Concent 32.1 G/DL (32.0-36.0) Red Cell Distribution Width 12.9 % (11.6-14.8) Platelet Count 297 K/UL (150-450) Mean Platelet Volume 6.8 FL (6.5-10.1) Neutrophils (%) (Auto) % (45.0-75.0) Lymphocytes (%) (Auto) % (20.0-45.0) Monocytes (%) (Auto) % (1.0-10.0) Eosinophils (%) (Auto) % (0.0-3.0) Basophils (%) (Auto) % (0.0-2.0) Differential Total Cells Counted 100 Neutrophils % (Manual) 86 % (45-75) H Lymphocytes % (Manual) 7 % (20-45) L Monocytes % (Manual) 7 % (1-10) Eosinophils % (Manual) 0 % (0-3) Basophils % (Manual) 0 % (0-2) Band Neutrophils 0 % (0-8) Platelet Estimate Adequate Platelet Morphology Normal Hypochromasia 1+ Sodium Level 127 MMOL/L (136-145) L Potassium Level 3.8 MMOL/L (3.5-5.1) Chloride Level 95 MMOL/L (98-107) L Carbon Dioxide Level 24 MMOL/L (21-32) Anion Gap 8 mmol/L (5-15) Blood Urea Nitrogen 10 mg/dL (7-18) Creatinine 0.6 MG/DL (0.55-1.30) Estimat Glomerular Filtration Rate > 60 mL/min (>60) Glucose Level 123 MG/DL (74-106) H Calcium Level 8.5 MG/DL (8.5-10.1) Wound: clean, dry Drains: none Additional Comments Xrays initially showed a displaced left IT hip fracture and CT showed small chip fragmentation from DJD left proximal tibia. Assessment Post-op Diagnosis Left IT hip fracture Plan Plan: PT, discharge plan Additional Comments I recommended and performed left hip pinning. No operative intervention is warranted for the left knee DJD. WBAT and DVT prophylaxis is recommended for a minimum of one month postoperatively. Miguel Corral MD Sep 11, 2020 09:32
[2020-09-11] MEDS ORDERED: D5 1/2NS 1000ml IV ONE (10:04)
[2020-09-11] MEDS: Enoxaparin 40mg Inj SUBQ SCH (10:48)
--- NOTE | 2020-09-11 11:45 | Pulmonology Progress Note ---
Subjective ROS Limited/Unobtainable: No Interval Events: s/p left hip pinning Constitutional: Reports: no symptoms HEENT: Repors: no symptoms Respiratory: Reports: no symptoms Cardiovascular: Reports: no symptoms Gastrointestinal/Abdominal: Reports: no symptoms Allergies: Coded Allergies: No Known Allergies (Unverified , 09/06/20) Objective Last 24 Hour Vital Signs Date Time Temp Pulse Resp B/P (MAP) Pulse Ox O2 Delivery O2 Flow Rate FiO2 09/11/20 09:00 Nasal Cannula 2.0 09/11/20 08:00 98.3 94 18 154/53 (86) 97 09/11/20 04:00 97.8 94 18 140/61 (87) 97 09/11/20 00:00 98.6 96 20 151/56 (87) 95 09/10/20 21:00 Nasal Cannula 2.0 09/10/20 20:00 98.9 89 20 147/52 (83) 95 09/10/20 16:23 98.2 09/10/20 16:00 98.2 09/10/20 15:45 100.6 97 18 158/57 (90) 97 09/10/20 12:58 98.0 09/10/20 12:00 98.0 98 20 158/74 (102) 99 Intake and Output 09/10/20 09/11/20 19:00 07:00 Intake Total 360 ml 400 ml Output Total 2500 ml Balance 360 ml -2100 ml Intake Oral 360 ml 400 ml Output Urine Total 2500 ml # Voids 1 Objective 09/11 remains on 2L NC saturating at 98% 09/10 no change 09/09 on 2L NC saturating well 09/08 on 2L NC saturating well General Appearance: WD/WN HEENT: atraumatic Respiratory: lungs clear Cardiovascular: normal rate, regular rhythm Abdomen: soft, non tender Laboratory Tests 09/10/20 12:15: POC Whole Blood Glucose 146H 09/10/20 21:12: POC Whole Blood Glucose [Pending] 09/11/20 04:40: White Blood Count 7.6, Red Blood Count 2.36L, Hemoglobin 7.2L, Hematocrit 22.5L, Mean Corpuscular Volume 95, Mean Corpuscular Hemoglobin 30.6, Mean Corpuscular Hemoglobin Concent 32.1, Red Cell Distribution Width 12.9, Platelet Count 297, Mean Platelet Volume 6.8, Neutrophils (%) (Auto) , Lymphocytes (%) (Auto) , Monocytes (%) (Auto) , Eosinophils (%) (Auto) , Basophils (%) (Auto) , Differential Total Cells Counted 100, Neutrophils % (Manual) 86H, Lymphocytes % (Manual) 7L, Monocytes % (Manual) 7, Eosinophils % (Manual) 0, Basophils % (Manual) 0, Band Neutrophils 0, Platelet Estimate Adequate, Platelet Morphology Normal, Hypochromasia 1+, Sodium Level 127L, Potassium Level 3.8, Chloride Level 95L, Carbon Dioxide Level 24, Anion Gap 8, Blood Urea Nitrogen 10, Creatinine 0.6, Estimat Glomerular Filtration Rate > 60, Glucose Level 123H, Calcium Level 8.5 Current Medications Medications (Trade) Dose Ordered Sig/Serena Route PRN Reason Start Time Stop Time Status Last Admin Dose Admin Acetaminophen (Tylenol) 650 mg Q6H PRN ORAL Temp >100.5 09/09/20 09:30 10/09/20 09:29 09/10/20 15:30 Clonidine HCl (Catapres Tab) 0.1 mg EVERY 6 HOURS PRN ORAL SBP > 160 mm Hg 09/11/20 11:15 12/10/20 11:14 Dextrose (Dextrose 50%) 25 ml Q30M PRN IV Hypoglycemia 09/07/20 15:00 12/06/20 14:59 Dextrose (Dextrose 50%) 50 ml Q30M PRN IV Hypoglycemia 09/07/20 15:00 12/06/20 14:59 Enoxaparin Sodium (Lovenox) 40 mg DAILY SUBQ 09/09/20 09:00 10/09/20 08:59 09/11/20 10:48 Hydromorphone HCl (Dilaudid) 1 mg Q4H PRN IVP Breakthrough Pain 6-10 09/08/20 12:45 09/15/20 12:44 09/10/20 23:56 Insulin Aspart (NovoLOG) BEFORE MEALS AND HS SUBQ 09/07/20 16:30 12/06/20 16:29 09/10/20 12:16 Assessment/Plan Assessment/Plan 1. Left femur fracture - s/p Left hip pinning operation by Dr. Corral 2. 1.7 cm right lobe pulmonary nodule -CT of the abdomen and pelvis showed a 1.7 cm right lobe pulmonary nodule which is very suspicious for lung cancer -Further history is required either from patient or patient's family. -scheduled for CT guided needle Bx of lung nodule on 09/12/[address] Orr - appreciate heme-onc consult 3. Cholelithiasis without evidence of cholecystitis - monitor 4. Anemia, likely from hemodilution - heme-onc consult appreciated - IV fluid DC'd - awaiting transfusion today 5. Hyponatremia - IV fluid DC'd - monitor 6. Hypochloremia - IV fluid DC'd - monitor 7. Diabetes mellitus with hyperglycemia - monitor BGs - on insulin sensitive scale 8. COVID-19 infection; could be mild case or early phase - given her normoxemia on room air, without SOB, fever, cough, no specific therapy required for COVID-19 at this time - Monitor SaO2 and provide supplemental oxygen as needed 9. Hypertension - prn clonidine for SBP >160 - pt reports taking lisinopril at home with unknown dosage; RN working on getting more detail for continuation of care 10. DVT ppx - on Lovenox 40 - D/w surgeon planning to dc to [facility] The care for this patient was discussed with my supervising physician. Time spent for this case was approximately 31 minutes. Piter Inman Sep 11, 2020 11:45
[2020-09-11 12:00] VITALS: BP 161/62
--- NOTE | 2020-09-11 12:19 | Hematology/Onc Progress Note ---
Assessment/Plan Assessment/Plan Imagin. Comminuted, angulated, and displaced left intertrochanteric femur fracture. 2. 1.7 cm right lobe pulmonary nodule with irregular margins, suspicious for primary lung malignancy. Consider tissue biopsy for further evaluation. 3. 8 mm left lingular pulmonary nodule. Consider PET CT, short interval follow-up CT, versus tissue biopsy for further evaluation. Impression # 1.7 cm right lobe pulmonary nodule, also with lingular mass --> CT of the abdomen and pelvis showed a 1.7 cm right lobe pulmonary nodule which is very suspicious for lung cancer --> Ordered tissue biopsy for further evaluation --> Discuss care plan once she recovers from surgery # Anemia likely related from hemodilution --> obtain anemia panel --> repeat cbc --> hgb 9.7--> 7.2 order blood transfusion for hgb <7. d/w JAZMIN Walton # Left femur fracture --> Left hip pinning operation scheduled by Dr. Corral --> Ortho surgery input appreciated # Cholelithiasis without evidence of cholecystitis --> monitor # Hyponatremia --> ivfs # Hypochloremia --> monitor and check AM labs # Diabetes mellitus with hyperglycemia --> monitor BGs --> we will initiate insulin sensitive scale # COVID-19 infection; could be mild case or early phase --> per pulm # DVT ppx post surgery Appreciate consultation and dw Rn Subjective Allergies: Coded Allergies: No Known Allergies (Unverified , 09/06/20) Subjective Subjective: 1/2: no acute events reported. onm Lovenox sq, dc planning per primary care team 09/11: hgb 7.2 no active bleeding reported d/w JAZMIN Sharma Objective Objective Current Medications Medications (Trade) Dose Ordered Sig/Serena Route PRN Reason Start Time Stop Time Status Last Admin Dose Admin Acetaminophen (Tylenol) 650 mg Q6H PRN ORAL Temp >100.5 09/09/20 09:30 10/09/20 09:29 09/10/20 15:30 Clonidine HCl (Catapres Tab) 0.1 mg EVERY 6 HOURS PRN ORAL SBP > 160 mm Hg 09/11/20 11:15 12/10/20 11:14 Dextrose (Dextrose 50%) 25 ml Q30M PRN IV Hypoglycemia 09/07/20 15:00 12/06/20 14:59 Dextrose (Dextrose 50%) 50 ml Q30M PRN IV Hypoglycemia 09/07/20 15:00 12/06/20 14:59 Enoxaparin Sodium (Lovenox) 40 mg DAILY SUBQ 09/09/20 09:00 10/09/20 08:59 09/11/20 10:48 Hydromorphone HCl (Dilaudid) 1 mg Q4H PRN IVP Breakthrough Pain 6-10 09/08/20 12:45 09/15/20 12:44 09/10/20 23:56 Insulin Aspart (NovoLOG) BEFORE MEALS AND HS SUBQ 09/07/20 16:30 12/06/20 16:29 09/10/20 12:16 Last 24 Hour Vital Signs Date Time Temp Pulse Resp B/P (MAP) Pulse Ox O2 Delivery O2 Flow Rate FiO2 09/11/20 12:00 99.4 96 19 161/62 (95) 98 09/11/20 09:00 Nasal Cannula 2.0 09/11/20 08:00 98.3 94 18 154/53 (86) 97 09/11/20 04:00 97.8 94 18 140/61 (87) 97 09/11/20 00:00 98.6 96 20 151/56 (87) 95 09/10/20 21:00 Nasal Cannula 2.0 09/10/20 20:00 98.9 89 20 147/52 (83) 95 09/10/20 16:23 98.2 09/10/20 16:00 98.2 09/10/20 15:45 100.6 97 18 158/57 (90) 97 09/10/20 12:58 98.0 09/10/20 12:00 98.0 98 20 158/74 (102) 99 09/10/20 09:00 Nasal Cannula 2.0 09/10/20 08:00 98.3 96 21 154/49 (84) 96 09/10/20 07:00 97.8 09/10/20 04:00 97.8 96 20 143/58 (86) 97 09/10/20 00:38 98.2 09/10/20 00:00 98.2 93 20 135/53 (80) 98 09/09/20 21:00 Nasal Cannula 2.0 09/09/20 20:00 98.0 89 20 127/56 (79) 96 09/09/20 16:00 98.1 83 20 148/61 (90) 96 Intake and Output 09/10/20 09/11/20 19:00 07:00 Intake Total 360 ml 400 ml Output Total 2500 ml Balance 360 ml -2100 ml Intake Oral 360 ml 400 ml Output Urine Total 2500 ml # Voids 1 Labs Test 09/08/20 12:19 09/08/20 20:16 09/09/20 08:30 09/09/20 12:07 POC Whole Blood Glucose 145 MG/DL (74-106) 122 MG/DL (74-106) 206 MG/DL (74-106) White Blood Count 10.7 K/UL (4.8-10.8) Red Blood Count 2.88 M/UL (4.20-5.40) Hemoglobin 8.6 G/DL (12.0-16.0) Hematocrit 28.1 % (37.0-47.0) Mean Corpuscular Volume 97 FL (80-99) Mean Corpuscular Hemoglobin 29.9 PG (27.0-31.0) Mean Corpuscular Hemoglobin Concent 30.7 G/DL (32.0-36.0) Red Cell Distribution Width 12.8 % (11.6-14.8) Platelet Count 249 K/UL (150-450) Mean Platelet Volume 7.3 FL (6.5-10.1) Neutrophils (%) (Auto) 81.4 % (45.0-75.0) Lymphocytes (%) (Auto) 9.6 % (20.0-45.0) Monocytes (%) (Auto) 8.7 % (1.0-10.0) Eosinophils (%) (Auto) 0.0 % (0.0-3.0) Basophils (%) (Auto) 0.3 % (0.0-2.0) Sodium Level 127 MMOL/L (136-145) Potassium Level 3.8 MMOL/L (3.5-5.1) Chloride Level 94 MMOL/L (98-107) Carbon Dioxide Level 24 MMOL/L (21-32) Anion Gap 9 mmol/L (5-15) Blood Urea Nitrogen 13 mg/dL (7-18) Creatinine 0.7 MG/DL (0.55-1.30) Estimat Glomerular Filtration Rate > 60 mL/min (>60) Glucose Level 166 MG/DL (74-106) Calcium Level 7.8 MG/DL (8.5-10.1) Test 09/09/20 23:35 09/10/20 05:48 09/10/20 06:15 09/10/20 12:15 POC Whole Blood Glucose 144 MG/DL (74-106) 146 MG/DL (74-106) White Blood Count 9.5 K/UL (4.8-10.8) Red Blood Count 2.53 M/UL (4.20-5.40) Hemoglobin 7.9 G/DL (12.0-16.0) Hematocrit 24.6 % (37.0-47.0) Mean Corpuscular Volume 97 FL (80-99) Mean Corpuscular Hemoglobin 31.2 PG (27.0-31.0) Mean Corpuscular Hemoglobin Concent 32.2 G/DL (32.0-36.0) Red Cell Distribution Width 13.3 % (11.6-14.8) Platelet Count 243 K/UL (150-450) Mean Platelet Volume 6.6 FL (6.5-10.1) Neutrophils (%) (Auto) % (45.0-75.0) Lymphocytes (%) (Auto) % (20.0-45.0) Monocytes (%) (Auto) % (1.0-10.0) Eosinophils (%) (Auto) % (0.0-3.0) Basophils (%) (Auto) % (0.0-2.0) Differential Total Cells Counted 100 Neutrophils % (Manual) 85 % (45-75) Lymphocytes % (Manual) 8 % (20-45) Monocytes % (Manual) 7 % (1-10) Eosinophils % (Manual) 0 % (0-3) Basophils % (Manual) 0 % (0-2) Band Neutrophils 0 % (0-8) Platelet Estimate Adequate Platelet Morphology Normal Hypochromasia 1+ Sodium Level 128 MMOL/L (136-145) Potassium Level 3.9 MMOL/L (3.5-5.1) Chloride Level 95 MMOL/L (98-107) Carbon Dioxide Level 26 MMOL/L (21-32) Anion Gap 7 mmol/L (5-15) Blood Urea Nitrogen 11 mg/dL (7-18) Creatinine 0.6 MG/DL (0.55-1.30) Estimat Glomerular Filtration Rate > 60 mL/min (>60) Glucose Level 151 MG/DL (74-106) Calcium Level 8.5 MG/DL (8.5-10.1) Test 09/10/20 21:12 09/11/20 04:40 White Blood Count 7.6 K/UL (4.8-10.8) Red Blood Count 2.36 M/UL (4.20-5.40) Hemoglobin 7.2 G/DL (12.0-16.0) Hematocrit 22.5 % (37.0-47.0) Mean Corpuscular Volume 95 FL (80-99) Mean Corpuscular Hemoglobin 30.6 PG (27.0-31.0) Mean Corpuscular Hemoglobin Concent 32.1 G/DL (32.0-36.0) Red Cell Distribution Width 12.9 % (11.6-14.8) Platelet Count 297 K/UL (150-450) Mean Platelet Volume 6.8 FL (6.5-10.1) Neutrophils (%) (Auto) % (45.0-75.0) Lymphocytes (%) (Auto) % (20.0-45.0) Monocytes (%) (Auto) % (1.0-10.0) Eosinophils (%) (Auto) % (0.0-3.0) Basophils (%) (Auto) % (0.0-2.0) Differential Total Cells Counted 100 Neutrophils % (Manual) 86 % (45-75) Lymphocytes % (Manual) 7 % (20-45) Monocytes % (Manual) 7 % (1-10) Eosinophils % (Manual) 0 % (0-3) Basophils % (Manual) 0 % (0-2) Band Neutrophils 0 % (0-8) Platelet Estimate Adequate Platelet Morphology Normal Hypochromasia 1+ Sodium Level 127 MMOL/L (136-145) Potassium Level 3.8 MMOL/L (3.5-5.1) Chloride Level 95 MMOL/L (98-107) Carbon Dioxide Level 24 MMOL/L (21-32) Anion Gap 8 mmol/L (5-15) Blood Urea Nitrogen 10 mg/dL (7-18) Creatinine 0.6 MG/DL (0.55-1.30) Estimat Glomerular Filtration Rate > 60 mL/min (>60) Glucose Level 123 MG/DL (74-106) Calcium Level 8.5 MG/DL (8.5-10.1) Height (Feet): 5 Height (Inches): 0.00 Weight (Pounds): 120 Objective PE: VS: reviewed HEENT: Head examination reveals that the head is normocephalic, atraumatic without deformity or unusual swelling. Chest and Lung: Reveals clear, normal, symmetrical breath sounds with no adventitious sound. Cardiovascular: Reveals normal S1, S2 without murmurs, rubs or clicks Abdomen: Soft with no tenderness or organomegaly Rectal: Deferred Musculoskeletal: Tenderness to palpation of the left hip region. Left hip is externally rotated with knees flexed in bed. neurological: Cranial nerves II to XII are intact. Gait is normal without ataxia. DTRs are normal. Babinski is downgoing. Nessa Winchester NP Sep 11, 2020 12:19
[2020-09-11 16:00] VITALS: BP 134/96
[2020-09-11 16:09] LABS: HEMATOCRIT 22.3 % (37.0-47.0); HEMOGLOBIN 7.2 G/DL (12.0-16.0); MEAN CORPUSCULAR VOLUME 94 FL (80-99); PLATELET COUNT 323 K/UL (150-450); RED BLOOD COUNT 2.37 M/UL (4.20-5.40); RED CELL DISTRIBUTION WIDTH 13.7 % (11.6-14.8); WHITE BLOOD COUNT 6.4 K/UL (4.8-10.8)
[2020-09-11] MEDS ORDERED: FAMOTIDINE20 MG ORAL (18:55)
[2020-09-11] MEDS ORDERED: CILOSTAZOL100 MG PO (18:55)
[2020-09-11] MEDS ORDERED: VITAMIN B-12100 MC1 PO (18:55)
[2020-09-11] MEDS ORDERED: VITAMIN B COMP1 EAC2 ORAL (18:55)
[2020-09-11] MEDS ORDERED: HYDROCHLOROTHIA25 MG ORAL (18:55)
[2020-09-11] MEDS ORDERED: LISINOPRIL5 MG ORAL (18:55)
[2020-09-11] MEDS ORDERED: GABAPENTIN100 MG ORAL (18:55)
[2020-09-11] MEDS ORDERED: METFORMIN HCL500 M1 ORAL (18:55)
[2020-09-11] MEDS ORDERED: SYNTHROID88 MCG ORAL (18:55)
[2020-09-11] MEDS ORDERED: FERROUS SULFAT325 MG ORAL (18:55)
[2020-09-11] MEDS ORDERED: ACTOS30 MG ORAL (18:55)
--- NOTE | 2020-09-11 19:33 | NUR ---
NURSE NOTES: Patient in bed, awake and alert x4. On NC 2L/min with no signs of distress or SOB. IVF intact and patent. Left hip surgical dressing dry and intact. Bed locked and in lowest position, call light within reach. Bed alarm on. Will continue plan of care.
--- NOTE | 2020-09-11 19:33 | NUR ---
NURSE HAND-OFF: Important Events on Shift: Obtained home med list from daughter; endorsed to please contact MD regarding continuing home meds. Patient Status: Stable Diet: Clear liquids Pending Orders: None Pending Results/Labs: None Pending MD notification: See above Latest Vital Signs: Temperature 99.4 , Pulse 73 , B/P 134 /96 , Respiratory Rate 18 , O2 SAT 98 , Simple Mask, O2 Flow Rate 2.0 . Vital Sign Comment: Stable Latest Dahl Fall Score: 65 Fall Risk: High Risk Safety Measures: Call light Within Reach, Bed Alarm Zone 2, Side Rails Side Rails x3, Bed position Low and Locked. Fall Precautions: Yellow Socks Door Sign Patient Fall Education Report given to JAZMIN Ochoa.
--- NOTE | 2020-09-11 19:46 | NUR ---
NURSE NOTES: Spoke with Dr. Granger regarding patient's home meds. Ordered to input home meds in the morning.
[2020-09-11 20:00] VITALS: BP 144/46
[2020-09-11] MEDS: HYDROmorphone 1mg/ml Carpuject IVP PRN (20:43)
[2020-09-12] VITALS: BP 128/53
[2020-09-12 04:00] VITALS: BP 129/48
[2020-09-12] MEDS: HYDROmorphone 1mg/ml Carpuject IVP PRN ×4 (04:56→21:40)
[2020-09-12] MEDS: NovoLOG Insulin Flexpen SUBQ SCH ×4 (05:51→21:40)
[2020-09-12] MEDS ORDERED: metFORMIN 500mg tab ORAL SCH ×2 (06:30→09:00)
[2020-09-12] MEDS: metFORMIN 500mg tab ORAL SCH ×2 (06:48→17:00)
--- NOTE | 2020-09-12 07:00 | NUR ---
NURSE HAND-OFF: Important Events on Shift: temp 101.0, L heel DTI, home meds reconciled Patient Status: Stable Diet: Clear liquid Pending Orders: CT guided biopsy 09/12/19 Pending Results/Labs: No labs Pending MD notification: N/A Latest Vital Signs: Temperature 98.0 , Pulse 80 , B/P 129 /48 , Respiratory Rate 16 , O2 SAT 99 , Simple Mask, O2 Flow Rate 2.0 . Vital Sign Comment: Stable Latest Dahl Fall Score: 65 Fall Risk: High Risk Safety Measures: Call light Within Reach, Bed Alarm Zone 2, Side Rails Side Rails x3, Bed position Low and Locked. Fall Precautions: Yellow Socks Door Sign Patient Fall Education
--- NOTE | 2020-09-12 07:02 | Hematology/Onc Progress Note ---
Assessment/Plan Assessment/Plan Laboratory data: Lab testing shows RBC 3.11, hemoglobin 9.7, hematocrit 27.4 Chemistries show sodium 130, chloride 96, glucose 168, alk phos 119 Urinalysis shows 1+ protein, 3+ glucose, 3+ ketones, 2+ blood Coagulation panel unremarkable Imagin. Comminuted, angulated, and displaced left intertrochanteric femur fracture. 2. 1.7 cm right lobe pulmonary nodule with irregular margins, suspicious for primary lung malignancy. Consider tissue biopsy for further evaluation. 3. 8 mm left lingular pulmonary nodule. Consider PET CT, short interval follow-up CT, versus tissue biopsy for further evaluation. Impression: # 1.7 cm right lobe pulmonary nodule, also with lingular mass --> CT of the abdomen and pelvis showed a 1.7 cm right lobe pulmonary nodule which is very suspicious for lung cancer --> Ordered tissue biopsy for further evaluation --> Discuss care plan once she recovers from surgery # Anemia likely related from hemodilution --> obtain anemia panel --> repeat cbc --> hgb 9.7 # Left femur fracture --> Left hip pinning operation scheduled by Dr. Corral --> Ortho surgery input appreciated # Cholelithiasis without evidence of cholecystitis --> monitor # Hyponatremia --> ivfs # Hypochloremia --> monitor and check AM labs # Diabetes mellitus with hyperglycemia --> monitor BGs --> we will initiate insulin sensitive scale # COVID-19 infection; could be mild case or early phase --> per pulm # DVT ppx post surgery Appreciate consultation and corinne Rn Subjective HEENT: Denies: no symptoms, eye pain, blurred vision, tearing, double vision, ear pain, ear discharge, nose pain, nose congestion, throat pain, throat swelling, mouth pain, mouth swelling, other Cardiovascular: Denies: no symptoms, chest pain, edema, irregular heart rate, lightheadedness, palpitations, syncope, other Respiratory: Denies: no symptoms, cough, shortness of breath, SOB with excertion, SOB at rest, sputum, wheezing, other Gastrointestinal/Abdominal: Denies: no symptoms, abdomen distended, abdominal pain, black stools, tarry stools, blood in stool, constipated, diarrhea, difficulty swallowing, nausea, poor appetite, poor fluid intake, rectal bleeding, vomiting, other Genitourinary: Denies: no symptoms, burning, discharge, frequency, flank pain, hematuria, incontinence, pain, urgency, other Neurologic/Psychiatric: Denies: no symptoms, anxiety, depressed, emotional problems, headache, numbness, paresthesia, pre-existing deficit, seizure, tingling, tremors, weakness, other Endocrine: Denies: no symptoms, excessive sweating, flushing, intolerance to cold, intolerance to heat, increased hunger, increased thirst, increased urine, unexplained weight gain, unexplained weight loss, other Hematologic/Lymphatic: Denies: no symptoms, anemia, easy bleeding, easy bruising, adenopathy, other Allergies: Coded Allergies: No Known Allergies (Unverified , 09/06/20) Subjective 09/09 meds reviewed, no f/c, lovenox sq, pending a biopsy 09/10: no acute events reported. onm Lovenox sq, dc planning per primary care team 09/11: hgb 7.2 no active bleeding reported d/w JAZMIN Sharma 09/12 labs are still pending, is on lovenox sq Objective Objective Current Medications Medications (Trade) Dose Ordered Sig/Serena Route PRN Reason Start Time Stop Time Status Last Admin Dose Admin Acetaminophen (Tylenol) 650 mg Q6H PRN ORAL Temp >100.5 09/09/20 09:30 10/09/20 09:29 09/11/20 20:42 Cilostazol (Pletal) 50 mg TWICE A DAY ORAL 09/12/20 09:00 10/12/20 08:59 Clonidine HCl (Catapres Tab) 0.1 mg EVERY 6 HOURS PRN ORAL SBP > 160 mm Hg 09/11/20 11:15 12/10/20 11:14 09/11/20 12:18 Dextrose (Dextrose 50%) 25 ml Q30M PRN IV Hypoglycemia 09/07/20 15:00 12/06/20 14:59 Dextrose (Dextrose 50%) 50 ml Q30M PRN IV Hypoglycemia 09/07/20 15:00 12/06/20 14:59 Enoxaparin Sodium (Lovenox) 40 mg DAILY SUBQ 09/09/20 09:00 10/09/20 08:59 09/11/20 10:48 Famotidine (Pepcid) 20 mg DAILY ORAL 09/12/20 09:00 12/11/20 08:59 Ferrous Sulfate (Feosol) 325 mg TWICE A DAY ORAL 09/12/20 09:00 12/11/20 08:59 Gabapentin (Neurontin) 300 mg BEDTIME ORAL 09/12/20 21:00 10/12/20 20:59 Hydrochlorothiazide (Hydrodiuril) 25 mg DAILY ORAL 09/12/20 09:00 10/12/20 08:59 Hydromorphone HCl (Dilaudid) 1 mg Q4H PRN IVP Breakthrough Pain 6-10 09/08/20 12:45 09/15/20 12:44 09/12/20 04:56 Insulin Aspart (NovoLOG) BEFORE MEALS AND HS SUBQ 09/07/20 16:30 12/06/20 16:29 09/12/20 05:51 Levothyroxine Sodium (Synthroid) 88 mcg ACBREAKFAST ORAL 09/12/20 06:30 10/12/20 06:29 09/12/20 05:51 Lisinopril (ZestriL) 10 mg DAILY ORAL 09/12/20 09:00 10/12/20 08:59 Metformin HCl (Glucophage) 500 mg TWICE A DAY ORAL 09/12/20 06:30 10/12/20 08:59 09/12/20 06:48 Last 24 Hour Vital Signs Date Time Temp Pulse Resp B/P (MAP) Pulse Ox O2 Delivery O2 Flow Rate FiO2 09/12/20 05:22 Nasal Cannula 2.0 09/12/20 04:00 98.0 80 16 129/48 (75) 99 09/12/20 00:00 97.4 86 17 128/53 (78) 98 09/11/20 21:12 99.2 09/11/20 21:00 Nasal Cannula 2.0 09/11/20 20:00 101.0 91 19 144/46 (78) 97 09/11/20 16:00 99.4 73 18 134/96 (109) 98 09/11/20 12:18 161/62 09/11/20 12:00 99.4 96 19 161/62 (95) 98 09/11/20 09:00 Nasal Cannula 2.0 09/11/20 08:00 98.3 94 18 154/53 (86) 97 09/11/20 04:00 97.8 94 18 140/61 (87) 97 09/11/20 00:00 98.6 96 20 151/56 (87) 95 09/10/20 21:00 Nasal Cannula 2.0 09/10/20 20:00 98.9 89 20 147/52 (83) 95 09/10/20 16:23 98.2 09/10/20 16:00 98.2 09/10/20 15:45 100.6 97 18 158/57 (90) 97 09/10/20 12:58 98.0 09/10/20 12:00 98.0 98 20 158/74 (102) 99 09/10/20 09:00 Nasal Cannula 2.0 09/10/20 08:00 98.3 96 21 154/49 (84) 96 Labs Test 09/09/20 08:30 09/09/20 12:07 09/09/20 16:41 09/09/20 23:35 White Blood Count 10.7 K/UL (4.8-10.8) Red Blood Count 2.88 M/UL (4.20-5.40) Hemoglobin 8.6 G/DL (12.0-16.0) Hematocrit 28.1 % (37.0-47.0) Mean Corpuscular Volume 97 FL (80-99) Mean Corpuscular Hemoglobin 29.9 PG (27.0-31.0) Mean Corpuscular Hemoglobin Concent 30.7 G/DL (32.0-36.0) Red Cell Distribution Width 12.8 % (11.6-14.8) Platelet Count 249 K/UL (150-450) Mean Platelet Volume 7.3 FL (6.5-10.1) Neutrophils (%) (Auto) 81.4 % (45.0-75.0) Lymphocytes (%) (Auto) 9.6 % (20.0-45.0) Monocytes (%) (Auto) 8.7 % (1.0-10.0) Eosinophils (%) (Auto) 0.0 % (0.0-3.0) Basophils (%) (Auto) 0.3 % (0.0-2.0) Sodium Level 127 MMOL/L (136-145) Potassium Level 3.8 MMOL/L (3.5-5.1) Chloride Level 94 MMOL/L (98-107) Carbon Dioxide Level 24 MMOL/L (21-32) Anion Gap 9 mmol/L (5-15) Blood Urea Nitrogen 13 mg/dL (7-18) Creatinine 0.7 MG/DL (0.55-1.30) Estimat Glomerular Filtration Rate > 60 mL/min (>60) Glucose Level 166 MG/DL (74-106) Calcium Level 7.8 MG/DL (8.5-10.1) POC Whole Blood Glucose 206 MG/DL (74-106) 169 MG/DL (74-106) Test 09/10/20 05:48 09/10/20 06:15 09/10/20 12:15 09/10/20 16:20 POC Whole Blood Glucose 144 MG/DL (74-106) 146 MG/DL (74-106) 115 MG/DL (74-106) White Blood Count 9.5 K/UL (4.8-10.8) Red Blood Count 2.53 M/UL (4.20-5.40) Hemoglobin 7.9 G/DL (12.0-16.0) Hematocrit 24.6 % (37.0-47.0) Mean Corpuscular Volume 97 FL (80-99) Mean Corpuscular Hemoglobin 31.2 PG (27.0-31.0) Mean Corpuscular Hemoglobin Concent 32.2 G/DL (32.0-36.0) Red Cell Distribution Width 13.3 % (11.6-14.8) Platelet Count 243 K/UL (150-450) Mean Platelet Volume 6.6 FL (6.5-10.1) Neutrophils (%) (Auto) % (45.0-75.0) Lymphocytes (%) (Auto) % (20.0-45.0) Monocytes (%) (Auto) % (1.0-10.0) Eosinophils (%) (Auto) % (0.0-3.0) Basophils (%) (Auto) % (0.0-2.0) Differential Total Cells Counted 100 Neutrophils % (Manual) 85 % (45-75) Lymphocytes % (Manual) 8 % (20-45) Monocytes % (Manual) 7 % (1-10) Eosinophils % (Manual) 0 % (0-3) Basophils % (Manual) 0 % (0-2) Band Neutrophils 0 % (0-8) Platelet Estimate Adequate Platelet Morphology Normal Hypochromasia 1+ Sodium Level 128 MMOL/L (136-145) Potassium Level 3.9 MMOL/L (3.5-5.1) Chloride Level 95 MMOL/L (98-107) Carbon Dioxide Level 26 MMOL/L (21-32) Anion Gap 7 mmol/L (5-15) Blood Urea Nitrogen 11 mg/dL (7-18) Creatinine 0.6 MG/DL (0.55-1.30) Estimat Glomerular Filtration Rate > 60 mL/min (>60) Glucose Level 151 MG/DL (74-106) Calcium Level 8.5 MG/DL (8.5-10.1) Test 09/10/20 21:12 09/11/20 04:40 09/11/20 05:58 09/11/20 12:17 White Blood Count 7.6 K/UL (4.8-10.8) Red Blood Count 2.36 M/UL (4.20-5.40) Hemoglobin 7.2 G/DL (12.0-16.0) Hematocrit 22.5 % (37.0-47.0) Mean Corpuscular Volume 95 FL (80-99) Mean Corpuscular Hemoglobin 30.6 PG (27.0-31.0) Mean Corpuscular Hemoglobin Concent 32.1 G/DL (32.0-36.0) Red Cell Distribution Width 12.9 % (11.6-14.8) Platelet Count 297 K/UL (150-450) Mean Platelet Volume 6.8 FL (6.5-10.1) Neutrophils (%) (Auto) % (45.0-75.0) Lymphocytes (%) (Auto) % (20.0-45.0) Monocytes (%) (Auto) % (1.0-10.0) Eosinophils (%) (Auto) % (0.0-3.0) Basophils (%) (Auto) % (0.0-2.0) Differential Total Cells Counted 100 Neutrophils % (Manual) 86 % (45-75) Lymphocytes % (Manual) 7 % (20-45) Monocytes % (Manual) 7 % (1-10) Eosinophils % (Manual) 0 % (0-3) Basophils % (Manual) 0 % (0-2) Band Neutrophils 0 % (0-8) Platelet Estimate Adequate Platelet Morphology Normal Hypochromasia 1+ Sodium Level 127 MMOL/L (136-145) Potassium Level 3.8 MMOL/L (3.5-5.1) Chloride Level 95 MMOL/L (98-107) Carbon Dioxide Level 24 MMOL/L (21-32) Anion Gap 8 mmol/L (5-15) Blood Urea Nitrogen 10 mg/dL (7-18) Creatinine 0.6 MG/DL (0.55-1.30) Estimat Glomerular Filtration Rate > 60 mL/min (>60) Glucose Level 123 MG/DL (74-106) Calcium Level 8.5 MG/DL (8.5-10.1) POC Whole Blood Glucose 109 MG/DL (74-106) Test 09/11/20 15:20 09/11/20 16:47 09/11/20 20:44 White Blood Count 6.4 K/UL (4.8-10.8) Red Blood Count 2.37 M/UL (4.20-5.40) Hemoglobin 7.2 G/DL (12.0-16.0) Hematocrit 22.3 % (37.0-47.0) Mean Corpuscular Volume 94 FL (80-99) Mean Corpuscular Hemoglobin 30.3 PG (27.0-31.0) Mean Corpuscular Hemoglobin Concent 32.3 G/DL (32.0-36.0) Red Cell Distribution Width 13.7 % (11.6-14.8) Platelet Count 323 K/UL (150-450) Mean Platelet Volume 6.8 FL (6.5-10.1) Neutrophils (%) (Auto) % (45.0-75.0) Lymphocytes (%) (Auto) % (20.0-45.0) Monocytes (%) (Auto) % (1.0-10.0) Eosinophils (%) (Auto) % (0.0-3.0) Basophils (%) (Auto) % (0.0-2.0) Differential Total Cells Counted 100 Neutrophils % (Manual) 81 % (45-75) Lymphocytes % (Manual) 11 % (20-45) Monocytes % (Manual) 5 % (1-10) Eosinophils % (Manual) 1 % (0-3) Basophils % (Manual) 0 % (0-2) Band Neutrophils 2 % (0-8) Platelet Estimate Adequate Platelet Morphology Normal Hypochromasia 2+ POC Whole Blood Glucose 162 MG/DL (74-106) Height (Feet): 5 Height (Inches): 0.00 Weight (Pounds): 120 Objective PE: VS: reviewed HEENT: Head examination reveals that the head is normocephalic, atraumatic without deformity or unusual swelling. Chest and Lung: Reveals clear, normal, symmetrical breath sounds with no adventitious sound. Cardiovascular: Reveals normal S1, S2 without murmurs, rubs or clicks Abdomen: Soft with no tenderness or organomegaly Rectal: Deferred Musculoskeletal: Tenderness to palpation of the left hip region. Left hip is externally rotated with knees flexed in bed. neurological: Cranial nerves II to XII are intact. Gait is normal without ataxia. DTRs are normal. Babinski is downgoing. Teofilo Orr MD Sep 12, 2020 07:02
--- NOTE | 2020-09-12 07:48 | NUR ---
NURSE NOTES: Received report from JAZMIN Ochoa. Patient observed to be awake, alert, and oriented x4. Seen lying in bed with HOB elevated currently on 2 L NC no s/sx of SOB/distress, no c/o any pain or discomfort. IV site located on LAC gauge 20 asymptomatic, inplace and intact. Juan catheter placed 16f inplace, intact and draining well. For CT guided biopsy scheduled for today. Bed placed on lowest and locked, call light placed within reach and will continue to monitor for any changes in patient's condition.
[2020-09-12 08:00] VITALS: BP 147/56
[2020-09-12] MEDS: Lisinopril 10mg tab ORAL SCH ×2 (08:20→09:02)
[2020-09-12] MEDS: hydroCHLOROthiazide 25mg cap ORAL SCH ×2 (08:20→09:02)
[2020-09-12] MEDS: Cilostazol 100mg tab ORAL SCH ×2 (08:20→17:00)
[2020-09-12] MEDS: Enoxaparin 40mg Inj SUBQ SCH (09:00)
--- NOTE | 2020-09-12 09:16 | Pulmonology Progress Note ---
Subjective ROS Limited/Unobtainable: No Interval Events: s/p left hip pinning Constitutional: Reports: no symptoms HEENT: Repors: no symptoms Respiratory: Reports: no symptoms Cardiovascular: Reports: no symptoms Gastrointestinal/Abdominal: Reports: no symptoms Allergies: Coded Allergies: No Known Allergies (Unverified , 09/06/20) Objective Last 24 Hour Vital Signs Date Time Temp Pulse Resp B/P (MAP) Pulse Ox O2 Delivery O2 Flow Rate FiO2 09/12/20 09:02 147/56 09/12/20 05:22 Nasal Cannula 2.0 09/12/20 04:00 98.0 80 16 129/48 (75) 99 09/12/20 00:00 97.4 86 17 128/53 (78) 98 09/11/20 21:12 99.2 09/11/20 21:00 Nasal Cannula 2.0 09/11/20 20:00 101.0 91 19 144/46 (78) 97 09/11/20 16:00 99.4 73 18 134/96 (109) 98 09/11/20 12:18 161/62 09/11/20 12:00 99.4 96 19 161/62 (95) 98 Intake and Output 09/11/20 09/12/20 19:00 07:00 Intake Total 360 ml Output Total 600 ml Balance -240 ml Other 360 ml Output Urine Total 600 ml Objective 09/12 NAD; saturation stable on 2L NC 09/11 remains on 2L NC saturating at 98% 09/10 no change 09/09 on 2L NC saturating well 09/08 on 2L NC saturating well General Appearance: WD/WN HEENT: atraumatic Respiratory: lungs clear Cardiovascular: normal rate, regular rhythm Abdomen: soft, non tender Laboratory Tests 09/11/20 12:17: POC Whole Blood Glucose [Pending] 09/11/20 15:20: White Blood Count 6.4, Red Blood Count 2.37L, Hemoglobin 7.2L, Hematocrit 22.3L, Mean Corpuscular Volume 94, Mean Corpuscular Hemoglobin 30.3, Mean Corpuscular Hemoglobin Concent 32.3, Red Cell Distribution Width 13.7, Platelet Count 323, Mean Platelet Volume 6.8, Neutrophils (%) (Auto) , Lymphocytes (%) (Auto) , Monocytes (%) (Auto) , Eosinophils (%) (Auto) , Basophils (%) (Auto) , Differential Total Cells Counted 100, Neutrophils % (Manual) 81H, Lymphocytes % (Manual) 11L, Monocytes % (Manual) 5, Eosinophils % (Manual) 1, Basophils % (Manual) 0, Band Neutrophils 2, Platelet Estimate Adequate, Platelet Morphology Normal, Hypochromasia 2+ 09/11/20 16:47: POC Whole Blood Glucose 162H 09/11/20 20:44: POC Whole Blood Glucose [Pending] Current Medications Medications (Trade) Dose Ordered Sig/Serena Route PRN Reason Start Time Stop Time Status Last Admin Dose Admin Acetaminophen (Tylenol) 650 mg Q6H PRN ORAL Temp >100.5 09/09/20 09:30 10/09/20 09:29 09/11/20 20:42 Cilostazol (Pletal) 50 mg TWICE A DAY ORAL 09/12/20 09:00 10/12/20 08:59 09/12/20 08:20 Clonidine HCl (Catapres Tab) 0.1 mg EVERY 6 HOURS PRN ORAL SBP > 160 mm Hg 09/11/20 11:15 12/10/20 11:14 09/11/20 12:18 Dextrose (Dextrose 50%) 25 ml Q30M PRN IV Hypoglycemia 09/07/20 15:00 12/06/20 14:59 Dextrose (Dextrose 50%) 50 ml Q30M PRN IV Hypoglycemia 09/07/20 15:00 12/06/20 14:59 Enoxaparin Sodium (Lovenox) 40 mg DAILY SUBQ 09/09/20 09:00 10/09/20 08:59 09/11/20 10:48 Famotidine (Pepcid) 20 mg DAILY ORAL 09/12/20 09:00 12/11/20 08:59 09/12/20 08:19 Ferrous Sulfate (Feosol) 325 mg TWICE A DAY ORAL 09/12/20 09:00 12/11/20 08:59 09/12/20 08:19 Gabapentin (Neurontin) 300 mg BEDTIME ORAL 09/12/20 21:00 10/12/20 20:59 Hydrochlorothiazide (Hydrodiuril) 25 mg DAILY ORAL 09/12/20 09:00 10/12/20 08:59 09/12/20 09:02 Hydromorphone HCl (Dilaudid) 1 mg Q4H PRN IVP Breakthrough Pain 6-10 09/08/20 12:45 09/15/20 12:44 09/12/20 09:02 Insulin Aspart (NovoLOG) BEFORE MEALS AND HS SUBQ 09/07/20 16:30 12/06/20 16:29 09/12/20 05:51 Levothyroxine Sodium (Synthroid) 88 mcg ACBREAKFAST ORAL 09/12/20 06:30 10/12/20 06:29 09/12/20 05:51 Lisinopril (ZestriL) 10 mg DAILY ORAL 09/12/20 09:00 10/12/20 08:59 09/12/20 09:02 Metformin HCl (Glucophage) 500 mg TWICE A DAY ORAL 09/12/20 06:30 10/12/20 08:59 09/12/20 06:48 Assessment/Plan Assessment/Plan 1. Left femur fracture - s/p Left hip pinning operation by Dr. Corral 2. 1.7 cm right lobe pulmonary nodule -CT of the abdomen and pelvis showed a 1.7 cm right lobe pulmonary nodule which is very suspicious for lung cancer -Further history is required either from patient or patient's family. -scheduled for CT guided needle Bx of lung nodule on 09/12/[address] Orr - appreciate heme-onc consult 3. Cholelithiasis without evidence of cholecystitis - monitor 4. Anemia, likely from hemodilution - heme-onc consult appreciated - IV fluid DC'd - s/p transfusion 5. Hyponatremia - IV fluid DC'd - monitor 6. Hypochloremia - IV fluid DC'd - monitor 7. Diabetes mellitus with hyperglycemia - monitor BGs - on insulin sensitive scale - on metformin 8. COVID-19 infection; could be mild case or early phase - given her normoxemia on room air, without SOB, fever, cough, no specific therapy required for COVID-19 at this time - Monitor SaO2 and provide supplemental oxygen as needed 9. Hypertension - on prn clonidine for SBP >160, and lisinopril 10. DVT ppx - on Lovenox 40 - D/w surgeon planning to dc to halfway; Awaiting CT guided Bx of lung nodule today The care for this patient was discussed with my supervising physician. Time spent for this case was approximately 31 minutes. Piter Inman Sep 12, 2020 09:16
--- NOTE | 2020-09-12 09:42 | NUR ---
NURSE NOTES: Documented for Lovenox 40mEq patient refused but Medication currently not available per pharmacy will await delivery for more stock.
[2020-09-12] MEDS ORDERED: Enoxaparin 60mg Inj SUBQ SCH (09:50)
[2020-09-12 10:49] LABS: ANION GAP 8 mmol/L (5-15); BLOOD UREA NITROGEN 14 mg/dL (7-18); CALCIUM 8.2 MG/DL (8.5-10.1); CARBON DIOXIDE 26 MMOL/L (21-32); CHLORIDE 96 MMOL/L (98-107); CREATININE 0.6 MG/DL (0.55-1.30); POTASSIUM 3.5 MMOL/L (3.5-5.1); SODIUM 130 MMOL/L (136-145)
--- NOTE | 2020-09-12 11:57 | Discharge Instructions ---
Discharge Instructions Discharge Instructions Follow up with: PCP for referral to radiology (needs CT of chest with contrast) Resume Normal Activity?: No Activity: as tolerated Special Instructions Needs radiology referral for CT of chest with contrast for evaluation of lung nodule May need CT guided biopsy of lung nodule for further evaluation For Congestive Heart Failure Reminder Report to your physician any weight gain of 5 pounds or more in one week. Piter Inman Sep 12, 2020 11:57
[2020-09-12 12:00] VITALS: BP 143/65
--- NOTE | 2020-09-12 13:31 | NUR ---
NURSE NOTES: Notified Dr. Orr that i spoke with Edward from Radiology. Unable to proceed with procedure, radiologist preferred to have procedure done after a ct with contrast and patient tests (-) for covid.
--- NOTE | 2020-09-12 13:34 | NUR ---
MIMEOGRAPH OPERATOR NOTE DC PLANNING ORDER FOR SNF PLACEMENT NOTED. S/W PATIENT VIA TELEPHONE. PATIENT IS MONOLINGUAL SYRI[place] SPEAKING. INFORMED OF MD RECOMMENDATION FOR SNF. PATIENT VERBALIZED AGREEMENT. CALL MADE TO [facility] [phone]. NO AGENT AVAILABLE. RECORDED MESSAGE INDICATES TO LEAVE FOR RETURN CALL. WILL FOLLOW UP.
--- NOTE | 2020-09-12 13:35 | NUR ---
NURSE NOTES: Notified JUAN M Dumas of Sodium 130 said he will input orders for patient.
--- NOTE | 2020-09-12 13:48 | NUR ---
NURSE NOTES:WOUND CARE NOTES:Pt presented with DTPI L Heel. An intact Haemopurulent Blister noted to L Heel(L)4.5cm x (W)4.5cm. Non-Blanchable erythema with fluctuance periwound. R heel is boggy with non-Blanchable erythema. Blood filled Blister posterior L upper thigh. Surrounding non-Blanchable erythema without elevation in skin temp. Sacrum is pink and blanchable . Surgical Incision sites L Hip and lateral Upper L thigh are clean, dry and intact. Tx>Plan: Apply Betadine to L heel. Cover with Optifoam drsg. Change every 3 days and prn. Apply Cavilon Skin Barrier to R Heel. Cover with Optifoam drsg. Change every 7 days and prn. Apply Cavilon Skin Barrier to Blister Posterior Upper L thigh. Cover with Optifoam drsg. Change every 7 days and Prn. Apply Moisture Barrier Paste to Sacrum. Cover with Optifoam drsg. Change every 3 days and prn. Reposition at leastr every 2 hours or as tolerated. Off-load heels with pillow.
[2020-09-12 16:00] VITALS: BP 135/54
--- NOTE | 2020-09-12 16:18 | NUR ---
CASE MANAGEMENT:REVIEW SI;COVID PNEUMONIA. HIP PINNING. 96.4 80 21 147/56 99% 2L NC NA 130 GLU 233 IS;LOVENOX SQ QD HCTZ PO QD PEPCID PO QD DILAUDID IV Q4 PRN INSULIN NOVOLOG SQ QID MED SURG STATUS DCP;PATIENT IS FROM HOME PLAN; SNF PLACEMENT
--- NOTE | 2020-09-12 19:07 | NUR ---
NURSE HAND-OFF: Important Events on Shift:Cancelled guided ct biopsy, covid monitoring, d/c planning Patient Status: stable Diet: CLD Pending Orders: n/a Pending Results/Labs:n/a Pending MD notification:n/a Latest Vital Signs: Temperature 96.6 , Pulse 84 , B/P 135 /54 , Respiratory Rate 20 , O2 SAT 99 , Simple Mask, O2 Flow Rate 2.0 . Vital Sign Comment: stable Latest Dahl Fall Score: 65 Fall Risk: High Risk Safety Measures: Call light Within Reach, Bed Alarm Zone 2, Side Rails Side Rails x3, Bed position Low and Locked. Fall Precautions: Yellow Socks Door Sign Patient Fall Education Report given to JAZMIN Ochoa.
[2020-09-12 20:00] VITALS: BP 158/61
[2020-09-13] VITALS (7 sets, daily range): BP systolic 127–147; BP diastolic 50–66
[2020-09-13] MEDS: NovoLOG Insulin Flexpen SUBQ SCH ×4 (05:49→20:08)
[2020-09-13] MEDS: HYDROmorphone 1mg/ml Carpuject IVP PRN (05:50)
--- NOTE | 2020-09-13 06:13 | NUR ---
NURSE HAND-OFF: Important Events on Shift: No acute events Patient Status: Stable Diet: Clear liq Pending Orders: CT guided biopsy 09/14/19, Discharge to SNF Pending Results/Labs: AM labs Pending MD notification: N/A Latest Vital Signs: Temperature 98.8 , Pulse 90 , B/P 135 /66 , Respiratory Rate 20 , O2 SAT 99 , Simple Mask, O2 Flow Rate 2.0 . Vital Sign Comment: N/A Latest Dahl Fall Score: 65 Fall Risk: High Risk Safety Measures: Call light Within Reach, Bed Alarm Zone 2, Side Rails Side Rails x3, Bed position Low and Locked. Fall Precautions: Yellow Socks Door Sign Patient Fall Education
--- NOTE | 2020-09-13 06:55 | Hematology/Onc Progress Note ---
Assessment/Plan Assessment/Plan Laboratory data: Lab testing shows RBC 3.11, hemoglobin 9.7, hematocrit 27.4 Chemistries show sodium 130, chloride 96, glucose 168, alk phos 119 Urinalysis shows 1+ protein, 3+ glucose, 3+ ketones, 2+ blood Coagulation panel unremarkable Imagin. Comminuted, angulated, and displaced left intertrochanteric femur fracture. 2. 1.7 cm right lobe pulmonary nodule with irregular margins, suspicious for primary lung malignancy. Consider tissue biopsy for further evaluation. 3. 8 mm left lingular pulmonary nodule. Consider PET CT, short interval follow-up CT, versus tissue biopsy for further evaluation. Impression: # 1.7 cm right lobe pulmonary nodule, also with lingular mass --> CT of the abdomen and pelvis showed a 1.7 cm right lobe pulmonary nodule which is very suspicious for lung cancer --> Ordered tissue biopsy for further evaluation --> Discuss care plan once she recovers from surgery # Anemia likely related from hemodilution --> obtain anemia panel --> repeat cbc --> hgb 9.7 # Left femur fracture --> Left hip pinning operation scheduled by Dr. Corral --> Ortho surgery input appreciated # Cholelithiasis without evidence of cholecystitis --> monitor # Hyponatremia --> ivfs # Hypochloremia --> monitor and check AM labs # Diabetes mellitus with hyperglycemia --> monitor BGs --> we will initiate insulin sensitive scale # COVID-19 infection; could be mild case or early phase --> per pulm # DVT ppx lovenox sq Appreciate consultation and corinne Rivera Subjective Allergies: Coded Allergies: No Known Allergies (Unverified , 09/06/20) All Systems: reviewed and negative except above Subjective 09/09 meds reviewed, no f/c, lovenox sq, pending a biopsy 09/10: no acute events reported. on Lovenox sq, dc planning per primary care team 09/11: hgb 7.2 no active bleeding reported d/w JAZMIN Sharma 09/12 labs are still pending, is on lovenox sq 09/13 on simple mask, meds reviewed, cbc has been ordered again Objective Objective Current Medications Medications (Trade) Dose Ordered Sig/Serena Route PRN Reason Start Time Stop Time Status Last Admin Dose Admin Acetaminophen (Tylenol) 650 mg Q6H PRN ORAL Temp >100.5 09/09/20 09:30 10/09/20 09:29 09/11/20 20:42 Cilostazol (Pletal) 50 mg TWICE A DAY ORAL 09/12/20 09:00 10/12/20 08:59 09/12/20 17:00 Clonidine HCl (Catapres Tab) 0.1 mg EVERY 6 HOURS PRN ORAL SBP > 160 mm Hg 09/11/20 11:15 12/10/20 11:14 09/11/20 12:18 Dextrose (Dextrose 50%) 25 ml Q30M PRN IV Hypoglycemia 09/07/20 15:00 12/06/20 14:59 Dextrose (Dextrose 50%) 50 ml Q30M PRN IV Hypoglycemia 09/07/20 15:00 12/06/20 14:59 Enoxaparin Sodium (Lovenox) 40 mg DAILY SUBQ 09/13/20 09:00 12/12/20 08:59 Famotidine (Pepcid) 20 mg DAILY ORAL 09/12/20 09:00 12/11/20 08:59 09/12/20 08:19 Ferrous Sulfate (Feosol) 325 mg TWICE A DAY ORAL 09/12/20 09:00 12/11/20 08:59 09/12/20 17:00 Gabapentin (Neurontin) 300 mg BEDTIME ORAL 09/12/20 21:00 10/12/20 20:59 09/12/20 21:34 Hydrochlorothiazide (Hydrodiuril) 25 mg DAILY ORAL 09/12/20 09:00 10/12/20 08:59 09/12/20 09:02 Hydromorphone HCl (Dilaudid) 1 mg Q4H PRN IVP Breakthrough Pain 6-10 09/08/20 12:45 09/15/20 12:44 09/13/20 05:50 Insulin Aspart (NovoLOG) BEFORE MEALS AND HS SUBQ 09/07/20 16:30 12/06/20 16:29 09/13/20 05:49 Levothyroxine Sodium (Synthroid) 88 mcg ACBREAKFAST ORAL 09/12/20 06:30 10/12/20 06:29 09/13/20 05:31 Lisinopril (ZestriL) 10 mg DAILY ORAL 09/12/20 09:00 10/12/20 08:59 09/12/20 09:02 Metformin HCl (Glucophage) 500 mg TWICE A DAY ORAL 09/12/20 06:30 10/12/20 08:59 09/12/20 17:00 Last 24 Hour Vital Signs Date Time Temp Pulse Resp B/P (MAP) Pulse Ox O2 Delivery O2 Flow Rate FiO2 09/13/20 04:00 98.8 90 20 135/66 (89) 99 09/13/20 00:00 97.7 92 20 145/58 (87) 93 09/12/20 21:00 Nasal Cannula 2.0 09/12/20 20:00 98.1 87 20 158/61 (93) 97 09/12/20 16:00 96.6 84 20 135/54 (81) 99 09/12/20 12:00 97.7 80 21 143/65 (91) 100 09/12/20 09:02 147/56 09/12/20 09:00 Nasal Cannula 2.0 09/12/20 08:00 96.4 78 19 147/56 (86) 100 09/12/20 05:22 Nasal Cannula 2.0 09/12/20 04:00 98.0 80 16 129/48 (75) 99 09/12/20 00:00 97.4 86 17 128/53 (78) 98 09/11/20 21:12 99.2 09/11/20 21:00 Nasal Cannula 2.0 09/11/20 20:00 101.0 91 19 144/46 (78) 97 09/11/20 16:00 99.4 73 18 134/96 (109) 98 09/11/20 12:18 161/62 09/11/20 12:00 99.4 96 19 161/62 (95) 98 09/11/20 09:00 Nasal Cannula 2.0 09/11/20 08:00 98.3 94 18 154/53 (86) 97 Intake and Output 09/12/20 09/13/20 19:00 07:00 Intake Total 120 ml 200 ml Output Total 1200 ml 700 ml Balance -1080 ml -500 ml Intake Oral 120 ml 200 ml Output Urine Total 1200 ml 700 ml # Voids 3 Labs Test 09/10/20 12:15 09/10/20 16:20 09/10/20 21:12 09/11/20 04:40 POC Whole Blood Glucose 146 MG/DL (74-106) 115 MG/DL (74-106) White Blood Count 7.6 K/UL (4.8-10.8) Red Blood Count 2.36 M/UL (4.20-5.40) Hemoglobin 7.2 G/DL (12.0-16.0) Hematocrit 22.5 % (37.0-47.0) Mean Corpuscular Volume 95 FL (80-99) Mean Corpuscular Hemoglobin 30.6 PG (27.0-31.0) Mean Corpuscular Hemoglobin Concent 32.1 G/DL (32.0-36.0) Red Cell Distribution Width 12.9 % (11.6-14.8) Platelet Count 297 K/UL (150-450) Mean Platelet Volume 6.8 FL (6.5-10.1) Neutrophils (%) (Auto) % (45.0-75.0) Lymphocytes (%) (Auto) % (20.0-45.0) Monocytes (%) (Auto) % (1.0-10.0) Eosinophils (%) (Auto) % (0.0-3.0) Basophils (%) (Auto) % (0.0-2.0) Differential Total Cells Counted 100 Neutrophils % (Manual) 86 % (45-75) Lymphocytes % (Manual) 7 % (20-45) Monocytes % (Manual) 7 % (1-10) Eosinophils % (Manual) 0 % (0-3) Basophils % (Manual) 0 % (0-2) Band Neutrophils 0 % (0-8) Platelet Estimate Adequate Platelet Morphology Normal Hypochromasia 1+ Sodium Level 127 MMOL/L (136-145) Potassium Level 3.8 MMOL/L (3.5-5.1) Chloride Level 95 MMOL/L (98-107) Carbon Dioxide Level 24 MMOL/L (21-32) Anion Gap 8 mmol/L (5-15) Blood Urea Nitrogen 10 mg/dL (7-18) Creatinine 0.6 MG/DL (0.55-1.30) Estimat Glomerular Filtration Rate > 60 mL/min (>60) Glucose Level 123 MG/DL (74-106) Calcium Level 8.5 MG/DL (8.5-10.1) Test 09/11/20 05:58 09/11/20 12:17 09/11/20 15:20 09/11/20 16:47 POC Whole Blood Glucose 109 MG/DL (74-106) 162 MG/DL (74-106) White Blood Count 6.4 K/UL (4.8-10.8) Red Blood Count 2.37 M/UL (4.20-5.40) Hemoglobin 7.2 G/DL (12.0-16.0) Hematocrit 22.3 % (37.0-47.0) Mean Corpuscular Volume 94 FL (80-99) Mean Corpuscular Hemoglobin 30.3 PG (27.0-31.0) Mean Corpuscular Hemoglobin Concent 32.3 G/DL (32.0-36.0) Red Cell Distribution Width 13.7 % (11.6-14.8) Platelet Count 323 K/UL (150-450) Mean Platelet Volume 6.8 FL (6.5-10.1) Neutrophils (%) (Auto) % (45.0-75.0) Lymphocytes (%) (Auto) % (20.0-45.0) Monocytes (%) (Auto) % (1.0-10.0) Eosinophils (%) (Auto) % (0.0-3.0) Basophils (%) (Auto) % (0.0-2.0) Differential Total Cells Counted 100 Neutrophils % (Manual) 81 % (45-75) Lymphocytes % (Manual) 11 % (20-45) Monocytes % (Manual) 5 % (1-10) Eosinophils % (Manual) 1 % (0-3) Basophils % (Manual) 0 % (0-2) Band Neutrophils 2 % (0-8) Platelet Estimate Adequate Platelet Morphology Normal Hypochromasia 2+ Test 09/11/20 20:44 09/12/20 05:50 09/12/20 09:45 09/12/20 12:30 Sodium Level 130 MMOL/L (136-145) Potassium Level 3.5 MMOL/L (3.5-5.1) Chloride Level 96 MMOL/L (98-107) Carbon Dioxide Level 26 MMOL/L (21-32) Anion Gap 8 mmol/L (5-15) Blood Urea Nitrogen 14 mg/dL (7-18) Creatinine 0.6 MG/DL (0.55-1.30) Estimat Glomerular Filtration Rate > 60 mL/min (>60) Glucose Level 177 MG/DL (74-106) Calcium Level 8.2 MG/DL (8.5-10.1) POC Whole Blood Glucose 233 MG/DL (74-106) Test 09/12/20 16:38 09/12/20 21:39 09/13/20 05:25 POC Whole Blood Glucose 216 MG/DL (74-106) 142 MG/DL (74-106) Height (Feet): 5 Height (Inches): 0.00 Weight (Pounds): 120 Objective PE: VS: reviewed HEENT: Head examination reveals that the head is normocephalic, atraumatic without deformity or unusual swelling. Chest and Lung: Reveals clear, normal, symmetrical breath sounds with no adventitious sound. Cardiovascular: Reveals normal S1, S2 without murmurs, rubs or clicks Abdomen: Soft with no tenderness or organomegaly Rectal: Deferred Musculoskeletal: Tenderness to palpation of the left hip region. Left hip is externally rotated with knees flexed in bed. neurological: Cranial nerves II to XII are intact. Gait is normal without ataxia. DTRs are normal. Babinski is downgoing. Teofilo Orr MD Sep 13, 2020 06:55
[2020-09-13 07:32] LABS: HEMATOCRIT 21.9 % (37.0-47.0); HEMOGLOBIN 7.1 G/DL (12.0-16.0); MEAN CORPUSCULAR VOLUME 93 FL (80-99); PLATELET COUNT 411 K/UL (150-450); RED BLOOD COUNT 2.35 M/UL (4.20-5.40); RED CELL DISTRIBUTION WIDTH 13.5 % (11.6-14.8); WHITE BLOOD COUNT 8.3 K/UL (4.8-10.8)
--- NOTE | 2020-09-13 07:35 | NUR ---
NURSE NOTES: Left message for Dr. Granger regarding advancing patient's diet. Patient is currently on clear liquid and tolerating well. Awaiting callback - Endorsed to AM nurse.
[2020-09-13 07:42] LABS: ANION GAP 6 mmol/L (5-15); BLOOD UREA NITROGEN 13 mg/dL (7-18); CALCIUM 8.4 MG/DL (8.5-10.1); CARBON DIOXIDE 28 MMOL/L (21-32); CHLORIDE 96 MMOL/L (98-107); CREATININE 0.6 MG/DL (0.55-1.30); POTASSIUM 3.7 MMOL/L (3.5-5.1); SODIUM 130 MMOL/L (136-145)
--- NOTE | 2020-09-13 07:45 | NUR ---
NURSE NOTES: Patient in bed, awake and alert x4. [place] speaking. On NC 2L, no signs of distress or SOB. IVF intact and patent. Left hip surgical dressing dry and intact. Bed locked and in lowest position, alarm on, call light within reach. Will continue to monitor.
--- NOTE | 2020-09-13 09:02 | Pulmonology Progress Note ---
Subjective ROS Limited/Unobtainable: No Interval Events: s/p left hip pinning Constitutional: Reports: no symptoms HEENT: Repors: no symptoms Respiratory: Reports: no symptoms Cardiovascular: Reports: no symptoms Gastrointestinal/Abdominal: Reports: no symptoms Allergies: Coded Allergies: No Known Allergies (Unverified , 09/06/20) All Systems: reviewed and negative except above Objective Last 24 Hour Vital Signs Date Time Temp Pulse Resp B/P (MAP) Pulse Ox O2 Delivery O2 Flow Rate FiO2 09/13/20 04:00 98.8 90 20 135/66 (89) 99 09/13/20 00:00 97.7 92 20 145/58 (87) 93 09/12/20 21:00 Nasal Cannula 2.0 09/12/20 20:00 98.1 87 20 158/61 (93) 97 09/12/20 16:00 96.6 84 20 135/54 (81) 99 09/12/20 12:00 97.7 80 21 143/65 (91) 100 09/12/20 09:02 147/56 09/12/20 09:00 Nasal Cannula 2.0 Intake and Output 09/12/20 09/13/20 19:00 07:00 Intake Total 120 ml 200 ml Output Total 1200 ml 700 ml Balance -1080 ml -500 ml Intake Oral 120 ml 200 ml Output Urine Total 1200 ml 700 ml # Voids 3 Objective 09/13 NAD; saturating at 98% on 2L NC; stable 09/12 NAD; saturation stable on 2L NC 09/11 remains on 2L NC saturating at 98% 09/10 no change 09/09 on 2L NC saturating well 09/08 on 2L NC saturating well General Appearance: WD/WN HEENT: atraumatic Respiratory: lungs clear Cardiovascular: normal rate, regular rhythm Abdomen: soft, non tender Laboratory Tests 09/12/20 09:45: Sodium Level 130L, Potassium Level 3.5, Chloride Level 96L, Carbon Dioxide Level 26, Anion Gap 8, Blood Urea Nitrogen 14, Creatinine 0.6, Estimat Glomerular Fi ltration Rate > 60, Glucose Level 177H, Calcium Level 8.2L 09/12/20 12:30: POC Whole Blood Glucose 233H 09/12/20 16:38: POC Whole Blood Glucose 216H 09/12/20 21:39: POC Whole Blood Glucose [Pending] 09/13/20 03:30: White Blood Count 8.3, Red Blood Count 2.35L, Hemoglobin 7.1L, Hematocrit 21.9L, Mean Corpuscular Volume 93, Mean Corpuscular Hemoglobin 30.4, Mean Corpuscular Hemoglobin Concent 32.6, Red Cell Distribution Width 13.5, Platelet Count 411, Mean Platelet Volume 6.0L, Neutrophils (%) (Auto) , Lymphocytes (%) (Auto) , Monocytes (%) (Auto) , Eosinophils (%) (Auto) , Basophils (%) (Auto) , Neutrophils % (Manual) [Pending], Lymphocytes % (Manual) [Pending], Platelet Estimate [Pending], Platelet Morphology [Pending], Sodium Level 130L, Potassium Level 3.7, Chloride Level 96L, Carbon Dioxide Level 28, Anion Gap 6, Blood Urea Nitrogen 13, Creatinine 0.6, Estimat Glomerular Filtration Rate > 60, Glucose Level 138H, Calcium Level 8.4L 09/13/20 05:25: POC Whole Blood Glucose 142H Current Medications Medications (Trade) Dose Ordered Sig/Serena Route PRN Reason Start Time Stop Time Status Last Admin Dose Admin Acetaminophen (Tylenol) 650 mg Q6H PRN ORAL Temp >100.5 09/09/20 09:30 10/09/20 09:29 09/11/20 20:42 Cilostazol (Pletal) 50 mg TWICE A DAY ORAL 09/12/20 09:00 10/12/20 08:59 09/12/20 17:00 Clonidine HCl (Catapres Tab) 0.1 mg EVERY 6 HOURS PRN ORAL SBP > 160 mm Hg 09/11/20 11:15 12/10/20 11:14 09/11/20 12:18 Dextrose (Dextrose 50%) 25 ml Q30M PRN IV Hypoglycemia 09/07/20 15:00 12/06/20 14:59 Dextrose (Dextrose 50%) 50 ml Q30M PRN IV Hypoglycemia 09/07/20 15:00 12/06/20 14:59 Enoxaparin Sodium (Lovenox) 40 mg DAILY SUBQ 09/13/20 09:00 12/12/20 08:59 Famotidine (Pepcid) 20 mg DAILY ORAL 09/12/20 09:00 12/11/20 08:59 09/12/20 08:19 Ferrous Sulfate (Feosol) 325 mg TWICE A DAY ORAL 09/12/20 09:00 12/11/20 08:59 09/12/20 17:00 Gabapentin (Neurontin) 300 mg BEDTIME ORAL 09/12/20 21:00 10/12/20 20:59 09/12/20 21:34 Hydrochlorothiazide (Hydrodiuril) 25 mg DAILY ORAL 09/12/20 09:00 10/12/20 08:59 09/12/20 09:02 Hydromorphone HCl (Dilaudid) 1 mg Q4H PRN IVP Breakthrough Pain 6-10 09/08/20 12:45 09/15/20 12:44 09/13/20 05:50 Insulin Aspart (NovoLOG) BEFORE MEALS AND HS SUBQ 09/07/20 16:30 12/06/20 16:29 09/13/20 05:49 Levothyroxine Sodium (Synthroid) 88 mcg ACBREAKFAST ORAL 09/12/20 06:30 10/12/20 06:29 09/13/20 05:31 Lisinopril (ZestriL) 10 mg DAILY ORAL 09/12/20 09:00 10/12/20 08:59 09/12/20 09:02 Metformin HCl (Glucophage) 500 mg TWICE A DAY ORAL 09/12/20 06:30 10/12/20 08:59 09/12/20 17:00 Assessment/Plan Assessment/Plan 1. Left femur fracture - s/p Left hip pinning operation by Dr. Corral 2. 1.7 cm right lobe pulmonary nodule -CT of the abdomen and pelvis showed a 1.7 cm right lobe pulmonary nodule which is very suspicious for lung cancer -Further history is required either from patient or patient's family. -scheduled for CT guided needle Bx of lung nodule on 09/12/[address] Orr; however, imaging department recommends that the pt should tests negative for COVID-[address] with contrast prior to CT-guided needle Bx of lung nodule due to risk of pneumothorax; plan to dc to SNF and follow up for chest CT with contrast - appreciate heme-onc consult 3. Cholelithiasis without evidence of cholecystitis - monitor 4. Anemia, likely from hemodilution - heme-onc consult appreciated - IV fluid DC'd - s/p transfusion 5. Hyponatremia - IV fluid DC'd - monitor 6. Hypochloremia - IV fluid DC'd - monitor 7. Diabetes mellitus with hyperglycemia - monitor BGs - on insulin sensitive scale - on metformin 8. COVID-19 infection; could be mild case or early phase - given her normoxemia on room air, without SOB, fever, cough, no specific therapy required for COVID-19 at this time - Monitor SaO2 and provide supplemental oxygen as needed 9. Hypertension - on prn clonidine for SBP >160, and lisinopril 10. DVT ppx - on Lovenox 40 - D/w surgeon resume diabetic diet planning to dc to custodial; The care for this patient was discussed with my supervising physician. Time spent for this case was approximately 31 minutes. Piter Inman Sep 13, 2020 09:02
[2020-09-13] MEDS: metFORMIN 500mg tab ORAL SCH ×2 (09:14→18:04)
[2020-09-13] MEDS: hydroCHLOROthiazide 25mg cap ORAL SCH (09:15)
[2020-09-13] MEDS: Cilostazol 100mg tab ORAL SCH ×2 (09:15→18:04)
[2020-09-13] MEDS: Lisinopril 10mg tab ORAL SCH (09:16)
[2020-09-13] MEDS: Enoxaparin 40mg Inj SUBQ SCH (09:20)
--- NOTE | 2020-09-13 10:15 | NUR ---
CHARGE NURSE NOTE: H@H 7.. notified.
--- NOTE | 2020-09-13 14:13 | NUR ---
CASE MANAGEMENT:REVIEW SI;COVID PNEUMONIA. HIP PINNING. 98.4 95 20 145/58 93% 2L NC H/H 7.1/21.9 NA+ 130 IS;HCTZ PO QD PEPCID PO QD DILAUDID IV PRN ZESTRIL PO MED SURG STATUS DCP;PATIENT IS FROM HOME PLAN; SNF PLACEMENT
--- NOTE | 2020-09-13 16:00 | NUR ---
NURSE NOTES: 1 unit of pRBC completed. no adverse reaction.
--- NOTE | 2020-09-13 19:45 | NUR ---
NURSE HAND-OFF: Important Events on Shift:[Hgb 7.1, 2units pRBC transfusion done. BM today] Patient Status: [weak] Diet: [CCHO] Pending Orders: [] Pending Results/Labs:[] Pending MD notification:[] Latest Vital Signs: Temperature 97.9 , Pulse 89 , B/P 144 /63 , Respiratory Rate 20 , O2 SAT 98 , Simple Mask, O2 Flow Rate 2.0 . Vital Sign Comment: [stable] Latest Dahl Fall Score: 65 Fall Risk: High Risk Safety Measures: Call light Within Reach, Bed Alarm Zone 2, Side Rails Side Rails x3, Bed position Low and Locked. Fall Precautions: Yellow Socks Door Sign Patient Fall Education Report given to [JAZMIN Rodriguez].
--- NOTE | 2020-09-13 20:00 | NUR ---
NURSE NOTES: Patient received in bed, alert and awake, PRBC transfused, no reaction. Will continue with plan of care.
[2020-09-14 04:00] VITALS: BP 133/58
[2020-09-14] MEDS: NovoLOG Insulin Flexpen SUBQ SCH ×4 (05:32→20:46)
--- NOTE | 2020-09-14 06:19 | NUR ---
NURSE NOTES: Verified with Dr. Orr re order for CT needle biopsy. Per MD, cancel the order. Will carry out order
--- NOTE | 2020-09-14 06:30 | NUR ---
NURSE NOTES: Patient was titrated to 1L O2 via NC, saturation at 94%. Will continue to monitor.
--- NOTE | 2020-09-14 06:37 | Hematology/Onc Progress Note ---
Assessment/Plan Assessment/Plan Laboratory data: Lab testing shows RBC 3.11, hemoglobin 9.7, hematocrit 27.4 Chemistries show sodium 130, chloride 96, glucose 168, alk phos 119 Urinalysis shows 1+ protein, 3+ glucose, 3+ ketones, 2+ blood Coagulation panel unremarkable Imagin. Comminuted, angulated, and displaced left intertrochanteric femur fracture. 2. 1.7 cm right lobe pulmonary nodule with irregular margins, suspicious for primary lung malignancy. Consider tissue biopsy for further evaluation. 3. 8 mm left lingular pulmonary nodule. Consider PET CT, short interval follow-up CT, versus tissue biopsy for further evaluation. Impression: # 1.7 cm right lobe pulmonary nodule, also with lingular mass --> CT of the abdomen and pelvis showed a 1.7 cm right lobe pulmonary nodule which is very suspicious for lung cancer --> Ordered tissue biopsy for further evaluation after repeat ct completed 09/14 --> Discuss care plan once she recovers from surgery # Anemia of iron deficiency --> obtain anemia panel-->reviewed --> repeat cbc --> hgb 9.7-->7.1 --> po iron started # Left femur fracture --> Left hip pinning operation scheduled by Dr. Corral --> Ortho surgery input appreciated # Cholelithiasis without evidence of cholecystitis --> monitor # Hyponatremia --> ivfs # Hypochloremia --> monitor and check AM labs # Diabetes mellitus with hyperglycemia --> monitor BGs --> we will initiate insulin sensitive scale # COVID-19 infection; could be mild case or early phase --> per pulm # DVT ppx lovenox sq Appreciate consultation and corinne Rn Subjective HEENT: Denies: no symptoms, eye pain, blurred vision, tearing, double vision, ear pain, ear discharge, nose pain, nose congestion, throat pain, throat swelling, mouth pain, mouth swelling, other Cardiovascular: Denies: no symptoms, chest pain, edema, irregular heart rate, lightheadedness, palpitations, syncope, other Respiratory: Denies: no symptoms, cough, shortness of breath, SOB with excertion, SOB at rest, sputum, wheezing, other Gastrointestinal/Abdominal: Denies: no symptoms, abdomen distended, abdominal pain, black stools, tarry stools, blood in stool, constipated, diarrhea, difficulty swallowing, nausea, poor appetite, poor fluid intake, rectal bleeding, vomiting, other Genitourinary: Denies: no symptoms, burning, discharge, frequency, flank pain, hematuria, incontinence, pain, urgency, other Neurologic/Psychiatric: Denies: no symptoms, anxiety, depressed, emotional problems, headache, numbness, paresthesia, pre-existing deficit, seizure, tingling, tremors, weakness, other Endocrine: Denies: no symptoms, excessive sweating, flushing, intolerance to cold, intolerance to heat, increased hunger, increased thirst, increased urine, unexplained weight gain, unexplained weight loss, other Allergies: Coded Allergies: No Known Allergies (Unverified , 09/06/20) Subjective 09/09 meds reviewed, no f/c, lovenox sq, pending a biopsy 09/10: no acute events reported. on Lovenox sq, dc planning per primary care team 09/11: hgb 7.2 no active bleeding reported d/w JAZMIN Sharma 09/12 labs are still pending, is on lovenox sq 09/13 on simple mask, meds reviewed, cbc has been ordered again 09/14 on , dw radiology yesterday and ct biopsy cancelled as with covid19 Objective Objective Current Medications Medications (Trade) Dose Ordered Sig/Serena Route PRN Reason Start Time Stop Time Status Last Admin Dose Admin Acetaminophen (Tylenol) 650 mg Q6H PRN ORAL Temp >100.5 09/09/20 09:30 10/09/20 09:29 09/11/20 20:42 Cilostazol (Pletal) 50 mg TWICE A DAY ORAL 09/12/20 09:00 10/12/20 08:59 09/13/20 18:04 Clonidine HCl (Catapres Tab) 0.1 mg EVERY 6 HOURS PRN ORAL SBP > 160 mm Hg 09/11/20 11:15 12/10/20 11:14 09/11/20 12:18 Dextrose (Dextrose 50%) 25 ml Q30M PRN IV Hypoglycemia 09/07/20 15:00 12/06/20 14:59 Dextrose (Dextrose 50%) 50 ml Q30M PRN IV Hypoglycemia 09/07/20 15:00 12/06/20 14:59 Enoxaparin Sodium (Lovenox) 40 mg DAILY SUBQ 09/13/20 09:00 12/12/20 08:59 09/13/20 09:20 Famotidine (Pepcid) 20 mg DAILY ORAL 09/12/20 09:00 12/11/20 08:59 09/13/20 09:14 Ferrous Sulfate (Feosol) 325 mg TWICE A DAY ORAL 09/12/20 09:00 12/11/20 08:59 09/13/20 18:04 Gabapentin (Neurontin) 300 mg BEDTIME ORAL 09/12/20 21:00 10/12/20 20:59 09/13/20 20:07 Hydrochlorothiazide (Hydrodiuril) 25 mg DAILY ORAL 09/12/20 09:00 10/12/20 08:59 09/13/20 09:15 Hydromorphone HCl (Dilaudid) 1 mg Q4H PRN IVP Breakthrough Pain 6-10 09/08/20 12:45 09/15/20 12:44 09/13/20 05:50 Insulin Aspart (NovoLOG) BEFORE MEALS AND HS SUBQ 09/07/20 16:30 12/06/20 16:29 09/14/20 05:32 Levothyroxine Sodium (Synthroid) 88 mcg ACBREAKFAST ORAL 09/12/20 06:30 10/12/20 06:29 09/14/20 05:29 Lisinopril (ZestriL) 10 mg DAILY ORAL 09/12/20 09:00 10/12/20 08:59 09/13/20 09:16 Metformin HCl (Glucophage) 500 mg TWICE A DAY ORAL 09/12/20 06:30 10/12/20 08:59 09/13/20 18:04 Ondansetron HCl (Zofran) 4 mg Q6H PRN IVP Nausea & Vomiting 09/13/20 10:15 10/13/20 10:14 Last 24 Hour Vital Signs Date Time Temp Pulse Resp B/P (MAP) Pulse Ox O2 Delivery O2 Flow Rate FiO2 09/14/20 04:00 98.9 94 18 133/58 (83) 94 09/13/20 23:57 98.6 92 18 147/56 (86) 94 09/13/20 21:00 Nasal Cannula 1.0 09/13/20 20:00 98.9 88 18 144/64 (90) 93 09/13/20 16:00 97.9 89 20 144/63 (90) 98 09/13/20 12:00 97.9 95 20 127/56 (79) 98 09/13/20 09:16 133/50 09/13/20 09:00 Nasal Cannula 2.0 09/13/20 08:00 98.4 94 20 133/50 (77) 98 09/13/20 04:00 98.8 90 20 135/66 (89) 99 09/13/20 00:00 97.7 92 20 145/58 (87) 93 09/12/20 21:00 Nasal Cannula 2.0 09/12/20 20:00 98.1 87 20 158/61 (93) 97 09/12/20 16:00 96.6 84 20 135/54 (81) 99 09/12/20 12:00 97.7 80 21 143/65 (91) 100 09/12/20 09:02 147/56 09/12/20 09:00 Nasal Cannula 2.0 09/12/20 08:00 96.4 78 19 147/56 (86) 100 Intake and Output 09/13/20 09/14/20 19:00 07:00 Intake Total 600 ml Output Total 600 ml 1000 ml Balance 0 ml -1000 ml Intake Oral 600 ml Output Urine Total 600 ml 1000 ml # Voids 1 Labs Test 09/11/20 12:17 09/11/20 15:20 09/11/20 16:47 09/11/20 20:44 White Blood Count 6.4 K/UL (4.8-10.8) Red Blood Count 2.37 M/UL (4.20-5.40) Hemoglobin 7.2 G/DL (12.0-16.0) Hematocrit 22.3 % (37.0-47.0) Mean Corpuscular Volume 94 FL (80-99) Mean Corpuscular Hemoglobin 30.3 PG (27.0-31.0) Mean Corpuscular Hemoglobin Concent 32.3 G/DL (32.0-36.0) Red Cell Distribution Width 13.7 % (11.6-14.8) Platelet Count 323 K/UL (150-450) Mean Platelet Volume 6.8 FL (6.5-10.1) Neutrophils (%) (Auto) % (45.0-75.0) Lymphocytes (%) (Auto) % (20.0-45.0) Monocytes (%) (Auto) % (1.0-10.0) Eosinophils (%) (Auto) % (0.0-3.0) Basophils (%) (Auto) % (0.0-2.0) Differential Total Cells Counted 100 Neutrophils % (Manual) 81 % (45-75) Lymphocytes % (Manual) 11 % (20-45) Monocytes % (Manual) 5 % (1-10) Eosinophils % (Manual) 1 % (0-3) Basophils % (Manual) 0 % (0-2) Band Neutrophils 2 % (0-8) Platelet Estimate Adequate Platelet Morphology Normal Hypochromasia 2+ POC Whole Blood Glucose 162 MG/DL (74-106) Test 09/12/20 05:50 09/12/20 09:45 09/12/20 12:30 09/12/20 16:38 Sodium Level 130 MMOL/L (136-145) Potassium Level 3.5 MMOL/L (3.5-5.1) Chloride Level 96 MMOL/L (98-107) Carbon Dioxide Level 26 MMOL/L (21-32) Anion Gap 8 mmol/L (5-15) Blood Urea Nitrogen 14 mg/dL (7-18) Creatinine 0.6 MG/DL (0.55-1.30) Estimat Glomerular Filtration Rate > 60 mL/min (>60) Glucose Level 177 MG/DL (74-106) Calcium Level 8.2 MG/DL (8.5-10.1) POC Whole Blood Glucose 233 MG/DL (74-106) 216 MG/DL (74-106) Test 09/12/20 21:39 09/13/20 03:30 09/13/20 05:25 09/13/20 11:12 White Blood Count 8.3 K/UL (4.8-10.8) Red Blood Count 2.35 M/UL (4.20-5.40) Hemoglobin 7.1 G/DL (12.0-16.0) Hematocrit 21.9 % (37.0-47.0) Mean Corpuscular Volume 93 FL (80-99) Mean Corpuscular Hemoglobin 30.4 PG (27.0-31.0) Mean Corpuscular Hemoglobin Concent 32.6 G/DL (32.0-36.0) Red Cell Distribution Width 13.5 % (11.6-14.8) Platelet Count 411 K/UL (150-450) Mean Platelet Volume 6.0 FL (6.5-10.1) Neutrophils (%) (Auto) % (45.0-75.0) Lymphocytes (%) (Auto) % (20.0-45.0) Monocytes (%) (Auto) % (1.0-10.0) Eosinophils (%) (Auto) % (0.0-3.0) Basophils (%) (Auto) % (0.0-2.0) Differential Total Cells Counted 100 Neutrophils % (Manual) 83 % (45-75) Lymphocytes % (Manual) 10 % (20-45) Monocytes % (Manual) 6 % (1-10) Eosinophils % (Manual) 1 % (0-3) Basophils % (Manual) 0 % (0-2) Band Neutrophils 0 % (0-8) Platelet Estimate Adequate Platelet Morphology Normal Hypochromasia 1+ Sodium Level 130 MMOL/L (136-145) Potassium Level 3.7 MMOL/L (3.5-5.1) Chloride Level 96 MMOL/L (98-107) Carbon Dioxide Level 28 MMOL/L (21-32) Anion Gap 6 mmol/L (5-15) Blood Urea Nitrogen 13 mg/dL (7-18) Creatinine 0.6 MG/DL (0.55-1.30) Estimat Glomerular Filtration Rate > 60 mL/min (>60) Glucose Level 138 MG/DL (74-106) Calcium Level 8.4 MG/DL (8.5-10.1) POC Whole Blood Glucose 142 MG/DL (74-106) 204 MG/DL (74-106) Test 09/13/20 16:43 POC Whole Blood Glucose 173 MG/DL (74-106) Height (Feet): 5 Height (Inches): 0.00 Weight (Pounds): 120 Objective PE: VS: reviewed HEENT: Head examination reveals that the head is normocephalic, atraumatic without deformity or unusual swelling. Chest and Lung: Reveals clear, normal, symmetrical breath sounds with no adventitious sound. Cardiovascular: Reveals normal S1, S2 without murmurs, rubs or clicks Abdomen: Soft with no tenderness or organomegaly Rectal: Deferred Musculoskeletal: Tenderness to palpation of the left hip region. Left hip is externally rotated with knees flexed in bed. neurological: Cranial nerves II to XII are intact. Gait is normal without ataxia. DTRs are normal. Babinski is downgoing. Teofilo Orr MD Sep 14, 2020 06:37
--- NOTE | 2020-09-14 07:28 | NUR ---
NURSE HAND-OFF: Important Events on Shift:[CT chest with contrast] Patient Status: [stable] Diet: [CCHO medium] Pending Orders: [] Pending Results/Labs:[] Pending MD notification:[] Latest Vital Signs: Temperature 98.9 , Pulse 94 , B/P 133 /58 , Respiratory Rate 18 , O2 SAT 94 , Simple Mask, O2 Flow Rate 1.0 . Vital Sign Comment: [] Latest Dahl Fall Score: 65 Fall Risk: High Risk Safety Measures: Call light Within Reach, Bed Alarm Zone 2, Side Rails Side Rails x3, Bed position Low and Locked. Fall Precautions: Yellow Socks Door Sign Patient Fall Education Report given to [Nasra WU].
--- NOTE | 2020-09-14 07:45 | NUR ---
NURSE NOTES: Patient in bed, awake and alert x4. [place] speaking. On NC 1L, no signs of distress or SOB. IVF intact and patent. Left hip surgical dressing dry and intact. Bed locked and in lowest position, alarm on, call light within reach. Will continue to monitor.
[2020-09-14 08:00] VITALS: BP 143/55
[2020-09-14] MEDS: Cilostazol 100mg tab ORAL SCH ×2 (08:03→17:36)
[2020-09-14] MEDS: hydroCHLOROthiazide 25mg cap ORAL SCH (08:03)
--- NOTE | 2020-09-14 08:03 | Pulmonology Progress Note ---
Subjective ROS Limited/Unobtainable: No Interval Events: s/p left hip pinning Constitutional: Reports: no symptoms HEENT: Repors: no symptoms Respiratory: Reports: shortness of breath Cardiovascular: Reports: no symptoms Gastrointestinal/Abdominal: Reports: no symptoms Allergies: Coded Allergies: No Known Allergies (Unverified , 09/06/20) All Systems: reviewed and negative except above Objective Last 24 Hour Vital Signs Date Time Temp Pulse Resp B/P (MAP) Pulse Ox O2 Delivery O2 Flow Rate FiO2 09/14/20 04:00 98.9 94 18 133/58 (83) 94 09/13/20 23:57 98.6 92 18 147/56 (86) 94 09/13/20 21:00 Nasal Cannula 1.0 09/13/20 20:00 98.9 88 18 144/64 (90) 93 09/13/20 16:00 97.9 89 20 144/63 (90) 98 09/13/20 12:00 97.9 95 20 127/56 (79) 98 09/13/20 09:16 133/50 09/13/20 09:00 Nasal Cannula 2.0 09/13/20 08:00 98.4 94 20 133/50 (77) 98 Intake and Output 09/13/20 09/14/20 19:00 07:00 Intake Total 600 ml Output Total 600 ml 1000 ml Balance 0 ml -1000 ml Intake Oral 600 ml Output Urine Total 600 ml 1000 ml # Voids 1 Objective 09/14 NAD; saturating at 90% on RA; put her back on 1-2L NC as needed 09/13 NAD; saturating at 98% on 2L NC; stable 09/12 NAD; saturation stable on 2L NC 09/11 remains on 2L NC saturating at 98% 09/10 no change 09/09 on 2L NC saturating well 09/08 on 2L NC saturating well General Appearance: WD/WN HEENT: atraumatic Respiratory: lungs clear Cardiovascular: normal rate, regular rhythm Abdomen: soft, non tender Laboratory Tests 09/13/20 11:12: POC Whole Blood Glucose 204H 09/13/20 16:43: POC Whole Blood Glucose 173H Current Medications Medications (Trade) Dose Ordered Sig/Serena Route PRN Reason Start Time Stop Time Status Last Admin Dose Admin Acetaminophen (Tylenol) 650 mg Q6H PRN ORAL Temp >100.5 09/09/20 09:30 10/09/20 09:29 09/11/20 20:42 Cilostazol (Pletal) 50 mg TWICE A DAY ORAL 09/12/20 09:00 10/12/20 08:59 09/13/20 18:04 Clonidine HCl (Catapres Tab) 0.1 mg EVERY 6 HOURS PRN ORAL SBP > 160 mm Hg 09/11/20 11:15 12/10/20 11:14 09/11/20 12:18 Dextrose (Dextrose 50%) 25 ml Q30M PRN IV Hypoglycemia 09/07/20 15:00 12/06/20 14:59 Dextrose (Dextrose 50%) 50 ml Q30M PRN IV Hypoglycemia 09/07/20 15:00 12/06/20 14:59 Enoxaparin Sodium (Lovenox) 40 mg DAILY SUBQ 09/13/20 09:00 12/12/20 08:59 09/13/20 09:20 Famotidine (Pepcid) 20 mg DAILY ORAL 09/12/20 09:00 12/11/20 08:59 09/13/20 09:14 Ferrous Sulfate (Feosol) 325 mg TWICE A DAY ORAL 09/12/20 09:00 12/11/20 08:59 09/13/20 18:04 Gabapentin (Neurontin) 300 mg BEDTIME ORAL 09/12/20 21:00 10/12/20 20:59 09/13/20 20:07 Hydrochlorothiazide (Hydrodiuril) 25 mg DAILY ORAL 09/12/20 09:00 10/12/20 08:59 09/13/20 09:15 Hydromorphone HCl (Dilaudid) 1 mg Q4H PRN IVP Breakthrough Pain 6-10 09/08/20 12:45 09/15/20 12:44 09/13/20 05:50 Insulin Aspart (NovoLOG) BEFORE MEALS AND HS SUBQ 09/07/20 16:30 12/06/20 16:29 09/14/20 05:32 Levothyroxine Sodium (Synthroid) 88 mcg ACBREAKFAST ORAL 09/12/20 06:30 10/12/20 06:29 09/14/20 05:29 Lisinopril (ZestriL) 10 mg DAILY ORAL 09/12/20 09:00 10/12/20 08:59 09/13/20 09:16 Metformin HCl (Glucophage) 500 mg TWICE A DAY ORAL 09/12/20 06:30 10/12/20 08:59 09/13/20 18:04 Ondansetron HCl (Zofran) 4 mg Q6H PRN IVP Nausea & Vomiting 09/13/20 10:15 10/13/20 10:14 Assessment/Plan Assessment/Plan 1. Left femur fracture - s/p Left hip pinning operation by Dr. Corral 2. 1.7 cm right lobe pulmonary nodule -CT of the abdomen and pelvis showed a 1.7 cm right lobe pulmonary nodule which is very suspicious for lung cancer -Further history is required either from patient or patient's family. -scheduled for CT guided needle Bx of lung nodule on 09/12/[address] Orr; however, imaging department recommends that the pt should tests negative for COVID-[address] with contrast prior to CT-guided needle Bx of lung nodule due to risk of pneumothorax - CT chest 09/14 pending result - appreciate heme-onc consult 3. Cholelithiasis without evidence of cholecystitis - monitor 4. Anemia - heme-onc following - IV fluid DC'd - s/p transfusion - on PO iron 5. Hyponatremia - monitor 6. Hypochloremia - IV fluid DC'd - monitor 7. Diabetes mellitus with hyperglycemia - monitor BGs - on insulin sensitive scale - on metformin 8. COVID-19 infection; could be mild case or early phase - given her normoxemia on room air, without SOB, fever, cough, no specific therapy required for COVID-19 at this time - Monitor SaO2 and provide supplemental oxygen as needed 9. Hypertension - on prn clonidine for SBP >160, and lisinopril 10. DVT ppx - on Lovenox 40 - D/w surgeon 11. New onset fever - Zdpu=137.0 - UA and culture ordered resume diabetic diet dc pending workup for lung nodule in progress The care for this patient was discussed with my supervising physician. Time spent for this case was approximately 31 minutes. Piter Inman Sep 14, 2020 08:03
[2020-09-14] MEDS: metFORMIN 500mg tab ORAL SCH ×2 (08:04→17:27)
[2020-09-14] MEDS: Lisinopril 10mg tab ORAL SCH (08:04)
[2020-09-14] MEDS: Enoxaparin 40mg Inj SUBQ SCH ×2 (08:06→08:13)
[2020-09-14 09:49] LABS: BASOPHILS % (AUTO) 0.4 % (0.0-2.0); EOSINOPHILS % (AUTO) 1.3 % (0.0-3.0); HEMATOCRIT 29.2 % (37.0-47.0); HEMOGLOBIN 9.7 G/DL (12.0-16.0); LYMPHOCYTES % (AUTO) 11.1 % (20.0-45.0); MEAN CORPUSCULAR VOLUME 92 FL (80-99); MONOCYTES % (AUTO) 5.6 % (1.0-10.0); NEUTROPHILS % (AUTO) 81.6 % (45.0-75.0); PLATELET COUNT 412 K/UL (150-450); RED BLOOD COUNT 3.18 M/UL (4.20-5.40); RED CELL DISTRIBUTION WIDTH 13.8 % (11.6-14.8)
[2020-09-14] MEDS ORDERED: Tubing IV Blood Pump IV ONE (09:58)
--- NOTE | 2020-09-14 09:58 | NUR ---
NURSE NOTES: Noted with opaque urine and sediment in urine. Notified Piter MCGOWAN. Obtained new order. carried out
[2020-09-14 11:22] LABS: APPEARANCE,URINE TURBID; BILIRUBIN, URINE NEGATIVE (NEGATIVE); GLUCOSE, URINE (UA) NEGATIVE (NEGATIVE); KETONES,URINE 3+ (NEGATIVE); LEUKOCYTE ESTERASE ,URINE 3+ (NEGATIVE); NITRITE,URINE POSITIVE (NEGATIVE); PH,URINE 5 (4.5-8.0); PROTEIN,URINE 3+ (NEGATIVE); UROBILINOGEN,URINE NORMAL MG/DL (0.0-1.0)
[2020-09-14 11:46] LABS: COLOR,URINE PALE YELLOW
[2020-09-14 12:00] VITALS: BP 144/53
--- NOTE | 2020-09-14 14:34 | Diagnostic Imaging Report ---
Clinical Indication: Lung nodules demonstrated on prior abdomen pelvis CT scan. Chest pain, history of Covid pneumonia Technique: IV administration nonionic contrast. Spiral acquisition obtained through the chest. Multiplanar reconstructions generated. Total dose length product 357 mGycm. CTDIvol(s) 2, 2, 70, 9 mGy. Dose reduction achieved using automated exposure control Comparison: No comparison chest CT. Reference made to prior abdomen pelvis CT scan dated 09/06/2020 Findings: Extensive bilateral infiltrates versus edema are now present, markedly increased from that seen in comparable area on the prior CT scan. The previously demonstrated right lower lobe nodule is not visible as such currently. Uncertain as to whether this has resolved or is completely obscured by the surrounding consolidation. Likewise, the previously reported inferior lingular nodule is not evident currently. There is some posterior dependent atelectasis in the inferior right lower lobe. There is also some posterior dependent atelectasis in the left lower lobe. There is a small right pleural effusion now present. The heart is mildly enlarged. No pericardial effusion. No mediastinal or hilar mass or adenopathy. The included portion of the thyroid is unremarkable. No axillary or chest wall mass or adenopathy. The included upper abdominal anatomy demonstrates cholelithiasis. There is now a very small amount of pericholecystic fluid. This was not evident previously. The bones are unremarkable. Impression: Extensive bilateral pulmonary parenchymal disease, markedly increased within the previously visualized segments as compared to prior abdomen pelvis CT of 09/06/2020. Appearance is nonspecific, may represent pneumonia given known history of Covid positivity, pulmonary edema/fluid overload, or combination of both, among other possibilities Previously demonstrated right lower lobe masslike opacity and inferior lingular nodule are no longer visible. These may be obscured by surrounding consolidated/atelectatic parenchyma, or may have represented a focal infiltrative process that has since resolved.. Consider follow-up CT imaging when patient's acute symptoms have resolved Small right pleural effusion Negative for adenopathy Mild cardiomegaly Cholelithiasis, also previously described. Mild pericholecystic fluid, not evident previously. Could be a manifestation of fluid overload but could also indicate acute cholecystitis. Correlate with physical findings, consider sonography or hepatobiliary nuclear scanning if there is high clinical suspicion for such The CT scanner at [facility] is accredited by the [employer] and the scans are performed using protocols designed to limit radiation exposure to as low as reasonably achievable to attain images of sufficient resolution adequate for diagnostic evaluation.
--- NOTE | 2020-09-14 15:38 | NUR ---
CASE MANAGEMENT:REVIEW SI;COVID PNEUMONIA. LT HIP PINNING 09/07/20. 100.0 96 20 144/53 94% 1L NC H/H 9.7/29.2 GLU 169 IS;SYNTHROID PO QD PEPCID PO QD HCTZ PO QD ZESTRIL PO QD MED SURG STATUS DCPFROM HOME PLAN;SNF PLACEMENT
[2020-09-14 16:00] VITALS: BP 148/65
--- NOTE | 2020-09-14 16:08 | Cardiology Report ---
APPROVED REPORT EKG Measurement Heart [id number] <Conclusion> Normal sinus rhythm Moderate voltage criteria for LVH, may be normal variant Borderline ECG
--- NOTE | 2020-09-14 17:55 | NUR ---
NURSE NOTES: 89% on room air. Put on NC @1L 92%
--- NOTE | 2020-09-14 18:15 | NUR ---
NURSE NOTES: vice president pharmacy spoke to Dr. Granger and relayed UA result and episode of fever today with new order to start levaquin 250mg qd and to d/c JAZMIN colindres asked to Dr. rGanger if ok to renew dilaudid PRN. declined to renew but d/c. Primary nurse is aware.
--- NOTE | 2020-09-14 19:58 | NUR ---
NURSE HAND-OFF: Important Events on Shift:[CT chest done, opaque urine with sediment noted. UA and Urine Culture done. Start ABX. DC colindres] Patient Status: [] Diet: [CCHO] Pending Orders: [] Pending Results/Labs:[] Pending MD notification:[] Latest Vital Signs: Temperature 98.7 , Pulse 94 , B/P 148 /65 , Respiratory Rate 20 , O2 SAT 92 , Simple Mask, O2 Flow Rate 1.0 . Vital Sign Comment: [stable] Latest Dahl Fall Score: 65 Fall Risk: High Risk Safety Measures: Call light Within Reach, Bed Alarm Zone 2, Side Rails Side Rails x3, Bed position Low and Locked. Fall Precautions: Yellow Socks Door Sign Patient Fall Education Report given to [JAZMIN Rodriguez].
[2020-09-14 20:00] VITALS: BP 161/62
--- NOTE | 2020-09-14 20:00 | NUR ---
NURSE NOTES: Patient received in bed, awake, in o2 via nc at 1LPM. No acute distress at this time. Will remove FC as ordered. Patient is aware and instructed to call for assistance with bedpan, verbalized understading. Call light within reach. Will continue with plan of care.
[2020-09-14 23:46] VITALS: BP 136/54
[2020-09-15 04:00] VITALS: BP 151/58
--- NOTE | 2020-09-15 04:44 | NUR ---
NURSE NOTES: Patient had BM, incontinence care provided and sacral dressing changed. Patient still not voided for 8 hours post colindres catheter removal. Attempted to place patient on bedpan, warm wash cloth over pelvis and stimulated with running water from faucet, patient still unable to void. bladder scan showed 209ml. Notified Dr. Granger, received order for straight cath/in and out catheter x1 and monitor. Also received PRN pain medication of norco for pain. Straight cath performed yielded 200 ml of cloudy rudi urine. Patient tolerated well.
[2020-09-15] MEDS: NovoLOG Insulin Flexpen SUBQ SCH ×4 (06:23→20:41)
--- NOTE | 2020-09-15 06:35 | Hematology/Onc Progress Note ---
Assessment/Plan Assessment/Plan Laboratory data: Lab testing shows RBC 3.11, hemoglobin 9.7, hematocrit 27.4 Chemistries show sodium 130, chloride 96, glucose 168, alk phos 119 Urinalysis shows 1+ protein, 3+ glucose, 3+ ketones, 2+ blood Coagulation panel unremarkable Imagin. Comminuted, angulated, and displaced left intertrochanteric femur fracture. 2. 1.7 cm right lobe pulmonary nodule with irregular margins, suspicious for primary lung malignancy. Consider tissue biopsy for further evaluation. 3. 8 mm left lingular pulmonary nodule. Consider PET CT, short interval follow-up CT, versus tissue biopsy for further evaluation. Impression: # 1.7 cm right lobe pulmonary nodule, also with lingular mass--> on repeat imaging does not show it 09/14/19 --> CT of the abdomen and pelvis showed a 1.7 cm right lobe pulmonary nodule which is very suspicious for lung cancer --> biopsy is not needed as repeat ct scan does not show mass --> as per pulm # Anemia of iron deficiency --> obtain anemia panel-->reviewed --> repeat cbc --> hgb 9.7-->7.1-->9.7 --> po iron started # Left femur fracture --> Left hip pinning operation scheduled by Dr. Corral --> Ortho surgery input appreciated # Cholelithiasis without evidence of cholecystitis --> monitor # Hyponatremia --> ivfs # Hypochloremia --> monitor and check AM labs # Diabetes mellitus with hyperglycemia --> monitor BGs --> we will initiate insulin sensitive scale # COVID-19 infection; could be mild case or early phase --> per pulm # DVT ppx lovenox sq Appreciate consultation and corinne Rn Subjective HEENT: Denies: no symptoms, eye pain, blurred vision, tearing, double vision, ear pain, ear discharge, nose pain, nose congestion, throat pain, throat s welling, mouth pain, mouth swelling, other Cardiovascular: Denies: no symptoms, chest pain, edema, irregular heart rate, lightheadedness, palpitations, syncope, other Gastrointestinal/Abdominal: Denies: no symptoms, abdomen distended, abdominal pain, black stools, tarry stools, blood in stool, constipated, diarrhea, difficulty swallowing, nausea, poor appetite, poor fluid intake, rectal bleeding, vomiting, other Genitourinary: Denies: no symptoms, burning, discharge, frequency, flank pain, hematuria, incontinence, pain, urgency, other Neurologic/Psychiatric: Denies: no symptoms, anxiety, depressed, emotional problems, headache, numbness, paresthesia, pre-existing deficit, seizure, tingling, tremors, weakness, other Endocrine: Denies: no symptoms, excessive sweating, flushing, intolerance to cold, intolerance to heat, increased hunger, increased thirst, increased urine, unexplained weight gain, unexplained weight loss, other Hematologic/Lymphatic: Denies: no symptoms, anemia, easy bleeding, easy bruising, adenopathy, other Allergies: Coded Allergies: No Known Allergies (Unverified , 09/06/20) Subjective 09/09 meds reviewed, no f/c, lovenox sq, pending a biopsy 09/10: no acute events reported. on Lovenox sq, dc planning per primary care team 09/11: hgb 7.2 no active bleeding reported d/w JAZMIN Sharma 09/12 labs are still pending, is on lovenox sq 09/13 on simple mask, meds reviewed, cbc has been ordered again 09/14 on sm, dw radiology yesterday and ct biopsy cancelled as with covid19 09/15 ct of the chest has been reviewed, no mass is noted, labs reviewed Objective Objective Current Medications Medications (Trade) Dose Ordered Sig/Serena Route PRN Reason Start Time Stop Time Status Last Admin Dose Admin Acetaminophen (Tylenol) 650 mg Q6H PRN ORAL Temp >100.5 09/09/20 09:30 10/09/20 09:29 09/14/20 08:04 Acetaminophen/ Hydrocodone Bitart ([place] 5/325) 1 tab Q6H PRN ORAL For Pain 09/15/20 04:45 09/22/20 04:44 Cilostazol (Pletal) 50 mg TWICE A DAY ORAL 09/12/20 09:00 10/12/20 08:59 09/14/20 17:36 Clonidine HCl (Catapres Tab) 0.1 mg EVERY 6 HOURS PRN ORAL SBP > 160 mm Hg 09/11/20 11:15 12/10/20 11:14 09/11/20 12:18 Dextrose (Dextrose 50%) 25 ml Q30M PRN IV Hypoglycemia 12/30/20 15:00 12/06/20 14:59 Dextrose (Dextrose 50%) 50 ml Q30M PRN IV Hypoglycemia 09/07/20 15:00 12/06/20 14:59 Enoxaparin Sodium (Lovenox) 40 mg DAILY SUBQ 09/13/20 09:00 12/12/20 08:59 09/14/20 08:13 Famotidine (Pepcid) 20 mg DAILY ORAL 09/12/20 09:00 12/11/20 08:59 09/14/20 08:04 Ferrous Sulfate (Feosol) 325 mg TWICE A DAY ORAL 09/12/20 09:00 12/11/20 08:59 09/14/20 17:27 Gabapentin (Neurontin) 300 mg BEDTIME ORAL 09/12/20 21:00 10/12/20 20:59 09/14/20 20:37 Hydrochlorothiazide (Hydrodiuril) 25 mg DAILY ORAL 09/12/20 09:00 10/12/20 08:59 09/14/20 08:03 Insulin Aspart (NovoLOG) BEFORE MEALS AND HS SUBQ 09/07/20 16:30 12/06/20 16:29 09/15/20 06:23 Levofloxacin (Levaquin) 250 mg DAILY ORAL 09/14/20 18:30 09/21/20 18:29 09/14/20 18:30 Levothyroxine Sodium (Synthroid) 88 mcg ACBREAKFAST ORAL 09/12/20 06:30 10/12/20 06:29 09/15/20 06:19 Lisinopril (ZestriL) 10 mg DAILY ORAL 09/12/20 09:00 10/12/20 08:59 09/14/20 08:04 Metformin HCl (Glucophage) 500 mg TWICE A DAY ORAL 09/12/20 06:30 10/12/20 08:59 09/14/20 17:27 Ondansetron HCl (Zofran) 4 mg Q6H PRN IVP Nausea & Vomiting 09/13/20 10:15 10/13/20 10:14 Last 24 Hour Vital Signs Date Time Temp Pulse Resp B/P (MAP) Pulse Ox O2 Delivery O2 Flow Rate FiO2 09/15/20 04:00 98.6 91 19 151/58 (89) 93 09/14/20 23:46 96.4 88 19 136/54 (81) 95 09/14/20 21:00 Nasal Cannula 1.0 09/14/20 20:00 99.6 93 20 161/62 (95) 97 09/14/20 16:00 98.7 94 20 148/65 (92) 92 09/14/20 12:00 97.6 84 20 144/53 (83) 95 09/14/20 09:00 Nasal Cannula 1.0 09/14/20 08:34 97.9 09/14/20 08:04 143/58 09/14/20 08:00 100.0 96 20 143/55 (84) 94 09/14/20 04:00 98.9 94 18 133/58 (83) 94 09/13/20 23:57 98.6 92 18 147/56 (86) 94 09/13/20 21:00 Nasal Cannula 1.0 09/13/20 20:00 98.9 88 18 144/64 (90) 93 09/13/20 16:00 97.9 89 20 144/63 (90) 98 09/13/20 12:00 97.9 95 20 127/56 (79) 98 09/13/20 09:16 133/50 09/13/20 09:00 Nasal Cannula 2.0 09/13/20 08:00 98.4 94 20 133/50 (77) 98 Intake and Output 09/14/20 09/15/20 19:00 07:00 Intake Total 480 ml 360 ml Output Total 450 ml 900 ml Balance 30 ml -540 ml Intake Oral 480 ml Other 360 ml Output Urine Total 450 ml 700 ml Other 200 ml # Bowel Movements 1 Labs Test 09/12/20 09:45 09/12/20 12:30 09/12/20 16:38 09/12/20 21:39 Sodium Level 130 MMOL/L (136-145) Potassium Level 3.5 MMOL/L (3.5-5.1) Chloride Level 96 MMOL/L (98-107) Carbon Dioxide Level 26 MMOL/L (21-32) Anion Gap 8 mmol/L (5-15) Blood Urea Nitrogen 14 mg/dL (7-18) Creatinine 0.6 MG/DL (0.55-1.30) Estimat Glomerular Filtration Rate > 60 mL/min (>60) Glucose Level 177 MG/DL (74-106) Calcium Level 8.2 MG/DL (8.5-10.1) POC Whole Blood Glucose 233 MG/DL (74-106) 216 MG/DL (74-106) Test 09/13/20 03:30 09/13/20 05:25 09/13/20 11:12 09/13/20 16:43 White Blood Count 8.3 K/UL (4.8-10.8) Red Blood Count 2.35 M/UL (4.20-5.40) Hemoglobin 7.1 G/DL (12.0-16.0) Hematocrit 21.9 % (37.0-47.0) Mean Corpuscular Volume 93 FL (80-99) Mean Corpuscular Hemoglobin 30.4 PG (27.0-31.0) Mean Corpuscular Hemoglobin Concent 32.6 G/DL (32.0-36.0) Red Cell Distribution Width 13.5 % (11.6-14.8) Platelet Count 411 K/UL (150-450) Mean Platelet Volume 6.0 FL (6.5-10.1) Neutrophils (%) (Auto) % (45.0-75.0) Lymphocytes (%) (Auto) % (20.0-45.0) Monocytes (%) (Auto) % (1.0-10.0) Eosinophils (%) (Auto) % (0.0-3.0) Basophils (%) (Auto) % (0.0-2.0) Differential Total Cells Counted 100 Neutrophils % (Manual) 83 % (45-75) Lymphocytes % (Manual) 10 % (20-45) Monocytes % (Manual) 6 % (1-10) Eosinophils % (Manual) 1 % (0-3) Basophils % (Manual) 0 % (0-2) Band Neutrophils 0 % (0-8) Platelet Estimate Adequate Platelet Morphology Normal Hypochromasia 1+ Sodium Level 130 MMOL/L (136-145) Potassium Level 3.7 MMOL/L (3.5-5.1) Chloride Level 96 MMOL/L (98-107) Carbon Dioxide Level 28 MMOL/L (21-32) Anion Gap 6 mmol/L (5-15) Blood Urea Nitrogen 13 mg/dL (7-18) Creatinine 0.6 MG/DL (0.55-1.30) Estimat Glomerular Filtration Rate > 60 mL/min (>60) Glucose Level 138 MG/DL (74-106) Calcium Level 8.4 MG/DL (8.5-10.1) POC Whole Blood Glucose 142 MG/DL (74-106) 204 MG/DL (74-106) 173 MG/DL (74-106) Test 09/13/20 20:06 09/14/20 05:31 09/14/20 09:05 09/14/20 10:20 POC Whole Blood Glucose 164 MG/DL (74-106) White Blood Count 9.0 K/UL (4.8-10.8) Red Blood Count 3.18 M/UL (4.20-5.40) Hemoglobin 9.7 G/DL (12.0-16.0) Hematocrit 29.2 % (37.0-47.0) Mean Corpuscular Volume 92 FL (80-99) Mean Corpuscular Hemoglobin 30.7 PG (27.0-31.0) Mean Corpuscular Hemoglobin Concent 33.4 G/DL (32.0-36.0) Red Cell Distribution Width 13.8 % (11.6-14.8) Platelet Count 412 K/UL (150-450) Mean Platelet Volume 5.8 FL (6.5-10.1) Neutrophils (%) (Auto) 81.6 % (45.0-75.0) Lymphocytes (%) (Auto) 11.1 % (20.0-45.0) Monocytes (%) (Auto) 5.6 % (1.0-10.0) Eosinophils (%) (Auto) 1.3 % (0.0-3.0) Basophils (%) (Auto) 0.4 % (0.0-2.0) Urine Color Pale yellow Urine Appearance Turbid Urine pH 5 (4.5-8.0) Urine Specific [place] 1.015 (1.005-1.035) Urine Protein 3+ (NEGATIVE) Urine Glucose (UA) Negative (NEGATIVE) Urine Ketones 3+ (NEGATIVE) Urine Blood 4+ (NEGATIVE) Urine Nitrite Positive (NEGATIVE) Urine Bilirubin Negative (NEGATIVE) Urine Urobilinogen Normal MG/DL (0.0-1.0) Urine Leukocyte Esterase 3+ (NEGATIVE) Urine RBC 5-10 /HPF (0 - 2) Urine WBC Tntc /HPF (0 - 2) Urine Squamous Epithelial Cells Occasional /LPF Urine Bacteria Many /HPF (NONE) Test 09/14/20 11:25 09/14/20 16:27 09/14/20 20:41 09/15/20 05:30 POC Whole Blood Glucose 169 MG/DL (74-106) 185 MG/DL (74-106) 213 MG/DL (74-106) Test 09/15/20 06:22 POC Whole Blood Glucose 165 MG/DL (74-106) Height (Feet): 5 Height (Inches): 0.00 Weight (Pounds): 120 Objective PE: VS: reviewed HEENT: Head examination reveals that the head is normocephalic, atraumatic without deformity or unusual swelling. Chest and Lung: Reveals clear, normal, symmetrical breath sounds with no adventitious sound. Cardiovascular: Reveals normal S1, S2 without murmurs, rubs or clicks Abdomen: Soft with no tenderness or organomegaly Rectal: Deferred Musculoskeletal: Tenderness to palpation of the left hip region. Left hip is externally rotated with knees flexed in bed. neurological: Cranial nerves II to XII are intact. Gait is normal without ataxia. DTRs are normal. Babinski is downgoing. Teofilo Orr MD Sep 15, 2020 06:35
[2020-09-15 06:45] LABS: BASOPHILS % (AUTO) 0.2 % (0.0-2.0); EOSINOPHILS % (AUTO) 1.9 % (0.0-3.0); HEMATOCRIT 30.9 % (37.0-47.0); HEMOGLOBIN 10.3 G/DL (12.0-16.0); LYMPHOCYTES % (AUTO) 9.8 % (20.0-45.0); MEAN CORPUSCULAR VOLUME 92 FL (80-99); NEUTROPHILS % (AUTO) 83.1 % (45.0-75.0); PLATELET COUNT 469 K/UL (150-450); RED BLOOD COUNT 3.34 M/UL (4.20-5.40); RED CELL DISTRIBUTION WIDTH 13.7 % (11.6-14.8); WHITE BLOOD COUNT 8.5 K/UL (4.8-10.8)
--- NOTE | 2020-09-15 07:10 | NUR ---
NURSE NOTES: Report received from Michael WU, rounds made. Patient resting in semi-fowlers position in bed. AOx4, calm. Bel[place]ian speaking. Respirations even/unlabored on O2 1L NC. Left hip dressing, intact (4x4 with tegederm), upper part of dressing with small stained area. Neuros intact, skin warm, wiggles, pulses palpable, no NT. Denies pain at rest, will medicate prior to PT. Encouraged CDB, ankle rotation. Encouraged PO fluid intake, will monitor urine output.Call light in reach, bed in lowest position, will continue to monitor.
--- NOTE | 2020-09-15 07:25 | NUR ---
NURSE HAND-OFF: Important Events on Shift:[colindres DC/d, no urine output, straight cath 200ml] Patient Status: [stable] Diet: [CCHO medium] Pending Orders: [] Pending Results/Labs:[] Pending MD notification:[] Latest Vital Signs: Temperature 98.6 , Pulse 91 , B/P 151 /58 , Respiratory Rate 19 , O2 SAT 93 , Simple Mask, O2 Flow Rate 1.0 . Vital Sign Comment: [] Latest Dahl Fall Score: 65 Fall Risk: High Risk Safety Measures: Call light Within Reach, Bed Alarm Zone 2, Side Rails Side Rails x3, Bed position Low and Locked. Fall Precautions: Yellow Socks Door Sign Patient Fall Education Report given to [Jannette Shepherd RN].
[2020-09-15 07:37] LABS: ALANINE AMINOTRANSFERASE 24 U/L (12-78); ALBUMIN 1.9 G/DL (3.4-5.0); ALBUMIN/GLOBULIN RATIO 0.4 (1.0-2.7); ALKALINE PHOSPHATASE 76 U/L (46-116); ANION GAP 9 mmol/L (5-15); ASPARTATE AMINO TRANSFERASE 37 U/L (15-37); BILIRUBIN,TOTAL 0.8 MG/DL (0.2-1.0); BLOOD UREA NITROGEN 11 mg/dL (7-18); CALCIUM 8.7 MG/DL (8.5-10.1); CARBON DIOXIDE 28 MMOL/L (21-32); CHLORIDE 95 MMOL/L (98-107); CREATININE 0.7 MG/DL (0.55-1.30); SODIUM 133 MMOL/L (136-145)
[2020-09-15 07:41] LABS: POTASSIUM 2.7 MMOL/L (3.5-5.1)
[2020-09-15 08:00] VITALS: BP 164/63
--- NOTE | 2020-09-15 08:40 | NUR ---
NURSE NOTES: Critical value K2.7 reported by LAB[address]ified Dr. Schwarz, instructed to notify Dr. Anaya, called/left detailed message with call back number. Dr. Inman arrived for rounds, notified of K2.7, orders received for KCL 10 meq IV x4 bags, will follow as ordered.
[2020-09-15] MEDS ORDERED: Sodium Chloride 550 ML IV SCH (09:00)
[2020-09-15] MEDS: Enoxaparin 40mg Inj SUBQ SCH (09:55)
[2020-09-15] MEDS: metFORMIN 500mg tab ORAL SCH ×2 (09:58→18:06)
[2020-09-15] MEDS: hydroCHLOROthiazide 25mg cap ORAL SCH (09:58)
[2020-09-15] MEDS: Cilostazol 100mg tab ORAL SCH ×2 (10:01→18:06)
[2020-09-15] MEDS: Lisinopril 10mg tab ORAL SCH (10:03)
[2020-09-15] MEDS: HYDROcodone/Acetamin 5/325 tab ORAL PRN ×2 (10:07→16:25)
--- NOTE | 2020-09-15 11:02 | Pulmonology Progress Note ---
Subjective ROS Limited/Unobtainable: No Interval Events: s/p left hip pinning Constitutional: Reports: no symptoms HEENT: Repors: no symptoms Respiratory: Reports: shortness of breath Cardiovascular: Reports: no symptoms Gastrointestinal/Abdominal: Reports: no symptoms Allergies: Coded Allergies: No Known Allergies (Unverified , 09/06/20) All Systems: reviewed and negative except above Objective Last 24 Hour Vital Signs Date Time Temp Pulse Resp B/P (MAP) Pulse Ox O2 Delivery O2 Flow Rate FiO2 09/15/20 10:03 164/63 09/15/20 04:00 98.6 91 19 151/58 (89) 93 09/14/20 23:46 96.4 88 19 136/54 (81) 95 09/14/20 21:00 Nasal Cannula 1.0 09/14/20 20:00 99.6 93 20 161/62 (95) 97 09/14/20 16:00 98.7 94 20 148/65 (92) 92 09/14/20 12:00 97.6 84 20 144/53 (83) 95 Intake and Output 09/14/20 09/15/20 19:00 07:00 Intake Total 480 ml 360 ml Output Total 450 ml 900 ml Balance 30 ml -540 ml Intake Oral 480 ml Other 360 ml Output Urine Total 450 ml 700 ml Other 200 ml # Bowel Movements 1 Objective 09/15 NAD; saturating at 93-95% on 1L NC 09/14 NAD; saturating at 90% on RA; put her back on 1-2L NC as needed 09/13 NAD; saturating at 98% on 2L NC; stable 09/12 NAD; saturation stable on 2L NC 09/11 remains on 2L NC saturating at 98% 09/10 no change 09/09 on 2L NC saturating well 09/08 on 2L NC saturating well General Appearance: WD/WN HEENT: atraumatic Respiratory: lungs clear Cardiovascular: normal rate, regular rhythm Abdomen: soft, non tender Laboratory Tests 09/14/20 11:25: POC Whole Blood Glucose 169H 09/14/20 16:27: POC Whole Blood Glucose 185H 09/14/20 20:41: POC Whole Blood Glucose 213H 09/15/20 05:30: White Blood Count 8.5, Red Blood Count 3.34L, Hemoglobin 10.3L, Hematocrit 30.9L , Mean Corpuscular Volume 92, Mean Corpuscular Hemoglobin 31.0, Mean Corpuscular Hemoglobin Concent 33.5, Red Cell Distribution Width 13.7, Platelet Count 469H, Mean Platelet Volume 5.9L, Neutrophils (%) (Auto) 83.1H, Lymphocytes (%) (Auto) 9.8L, Monocytes (%) (Auto) 5.0, Eosinophils (%) (Auto) 1.9, Basophils (%) (Auto) 0.2, Sodium Level 133L, Potassium Level 2.7*L, Chloride Level 95L, Carbon Dioxide Level 28, Anion Gap 9, Blood Urea Nitrogen 11, Creatinine 0.7, Estimat Glomerular Filtration Rate > 60, Glucose Level 154H, Calcium Level 8.7, Total Bilirubin 0.8, Aspartate Amino Transf (AST/SGOT) 37, Alanine Aminotransferase (ALT/SGPT) 24, Alkaline Phosphatase 76, Total Protein 6.9, Albumin 1.9L, Globulin 5.0, Albumin/Globulin Ratio 0.4L 09/15/20 06:22: POC Whole Blood Glucose 165H Current Medications Medications (Trade) Dose Ordered Sig/Serena Route PRN Reason Start Time Stop Time Status Last Admin Dose Admin Acetaminophen (Tylenol) 650 mg Q6H PRN ORAL Temp >100.5 09/09/20 09:30 10/09/20 09:29 09/14/20 08:04 Acetaminophen/ Hydrocodone Bitart ([place] 5/325) 1 tab Q6H PRN ORAL For Pain 09/15/20 04:45 09/22/20 04:44 09/15/20 10:07 Cilostazol (Pletal) 50 mg TWICE A DAY ORAL 09/12/20 09:00 10/12/20 08:59 09/15/20 10:01 Clonidine HCl (Catapres Tab) 0.1 mg EVERY 6 HOURS PRN ORAL SBP > 160 mm Hg 09/11/20 11:15 12/10/20 11:14 09/11/20 12:18 Dextrose (Dextrose 50%) 25 ml Q30M PRN IV Hypoglycemia 09/07/20 15:00 12/06/20 14:59 Dextrose (Dextrose 50%) 50 ml Q30M PRN IV Hypoglycemia 09/07/20 15:00 12/06/20 14:59 Enoxaparin Sodium (Lovenox) 40 mg DAILY SUBQ 09/13/20 09:00 12/12/20 08:59 09/15/20 09:55 Famotidine (Pepcid) 20 mg DAILY ORAL 09/12/20 09:00 12/11/20 08:59 09/15/20 10:03 Ferrous Sulfate (Feosol) 325 mg TWICE A DAY ORAL 09/12/20 09:00 12/11/20 08:59 09/15/20 09:58 Gabapentin (Neurontin) 300 mg BEDTIME ORAL 09/12/20 21:00 10/12/20 20:59 09/14/20 20:37 Hydrochlorothiazide (Hydrodiuril) 25 mg DAILY ORAL 09/12/20 09:00 10/12/20 08:59 09/15/20 09:58 Insulin Aspart (NovoLOG) BEFORE MEALS AND HS SUBQ 09/07/20 16:30 12/06/20 16:29 09/15/20 06:23 Levofloxacin (Levaquin) 250 mg DAILY ORAL 09/14/20 18:30 09/21/20 18:29 09/15/20 10:03 Levothyroxine Sodium (Synthroid) 88 mcg ACBREAKFAST ORAL 09/12/20 06:30 10/12/20 06:29 09/15/20 06:19 Lisinopril (ZestriL) 10 mg DAILY ORAL 09/12/20 09:00 10/12/20 08:59 09/15/20 10:03 Metformin HCl (Glucophage) 500 mg TWICE A DAY ORAL 09/12/20 06:30 10/12/20 08:59 09/15/20 09:58 Ondansetron HCl (Zofran) 4 mg Q6H PRN IVP Nausea & Vomiting 09/13/20 10:15 10/13/20 10:14 Potassium Chloride 100 ml @ 100 mls/hr Q1HR IVPB 09/15/20 09:00 09/15/20 12:59 09/15/20 09:57 Sodium Chloride 550 ml @ 100 mls/hr Q5H30M IV 09/15/20 09:00 09/15/20 14:00 09/15/20 09:56 Assessment/Plan Assessment/Plan 1. Left femur fracture - s/p Left hip pinning operation by Dr. Corral 2. 1.7 cm right lobe pulmonary nodule -CT of the abdomen and pelvis showed a 1.7 cm right lobe pulmonary nodule which is very suspicious for lung cancer -Further history is required either from patient or patient's family. -scheduled for CT guided needle Bx of lung nodule on 09/12/[address] Orr; however, imaging department recommends that the pt should tests negative for COVID-[address] with contrast prior to CT-guided needle Bx of lung nodule due to risk of pneumothorax - CT chest 09/14 previous demonstrated lung mass no longer visible. perhaps obscured or consolidations that have resolved since; follow up CT is recommended as an outpatient - appreciate heme-onc consult 3. Cholelithiasis without evidence of cholecystitis - monitor 4. Anemia - heme-onc following - IV fluid DC'd - s/p transfusion - on PO iron 5. Hyponatremia - monitor 6. Hypochloremia - IV fluid DC'd - monitor 7. Diabetes mellitus with hyperglycemia - monitor BGs - on insulin sensitive scale - on metformin 8. COVID-19 infection; could be mild case or early phase - given her normoxemia on room air, without SOB, fever, cough, no specific therapy required for COVID-19 at this time - Monitor SaO2 and provide supplemental oxygen as needed 9. Hypertension - on prn clonidine for SBP >160, and lisinopril 10. DVT ppx - on Lovenox 40 - D/w surgeon 11. New onset fever; resolved - Vjvi=[id number] 12. UTI - started on Levaquin 13. Hypokalemia - K replaced - ordered Mg lab resume diabetic diet CT chest no longer demonstrates lung nodule; follow up CT as an outpatient will dc tomorrow if stable The care for this patient was discussed with my supervising physician. Time spent for this case was approximately 31 minutes. Piter Inman Sep 15, 2020 11:02 Yuval Granger MD Sep 15, 2020 14:32
[2020-09-15 12:00] VITALS: BP 151/62
--- NOTE | 2020-09-15 13:08 | NUR ---
RD ASSESSMENT & RECOMMENDATIONS SEE CARE ACTIVITY FOR COMPLETE ASSESSMENT DAILY ESTIMATED NEEDS: Needs based on DM, Wound/ 54.3kg 25-30 kcals/kg 6753-7113 total kcals 1.25-1.5 g protein/kg 67-81 g total protein 25-30 mL/kg 4400-0726 total fluid mLs NUTRITION DIAGNOSIS: * Increased kcal/prot needs R/T wound healing as evidenced by pt admitted w/ Lt heel DTPI wound. CURRENT DIET:[facility] PO DIET RECOMMENDATIONS: [facility] ADDITIONAL RECOMMENDATIONS: * Calibrated bedscale wt * Wound healing: MVI x 1, Vit C 500mg QD, ZnSO4 220mg QD x 10 days Kuldeep BID * Glucerna x 1 w/ variable intake * Monitor lytes and replete as needed (low Na and K) .
--- NOTE | 2020-09-15 13:30 | NUR ---
CASE MANAGEMENT:REVIEW SI;COVID PNEUMONIA. LT HIP PINNING 09/07/20. 98.8 91 19 164/63 93% 1L NC PLT 469 K+ 2.7 BG 191 ALB 1.9 IS;K-DUR PO ONCE KCL IV ONCE X4 BAGS IVF NS @ 100 ML/HR NORCO PO Q6 PRN LEVAQUIN PO QD LOVENOX SQ QD HCTZ PO QD PEPCID PO QD SYNTHROID PO QD MED SURG STATUS DCP;FROM HOME DC PLANNING WHEN STABLE
[2020-09-15 16:00] VITALS: BP 118/53
--- NOTE | 2020-09-15 17:19 | NUR ---
*-*DISCHARGE PLANNING*-* PATIENT HAS BEEN REFERRED TO: RUBIO LOPEZ P: [phone] S/W KALINA, WILL FOLLOW UP AFTER REVIEW.
[2020-09-15 18:05] VITALS: BP 132/64
--- NOTE | 2020-09-15 19:11 | NUR ---
NURSE HAND-OFF: Important Events on Shift:Voids (has retention, PVR 402 at 1810, then patient voided 175 ml on bedpan)monitor urine output, K2.7 (received KCL10 meq IV x2 bags and KCL 40 meq PO x1),PT (stood up at bedside) Patient Status: stable Diet: CCHO medium Pending Orders: labs AM Pending Results/Labs:CBC BMP 09/16 Pending MD notification:none Latest Vital Signs: Temperature 96.4 , Pulse 84 , B/P 132 /64 , Respiratory Rate 18 , O2 SAT 98 , Simple Mask, O2 Flow Rate 1.0 . Vital Sign Comment: none Latest Dahl Fall Score: 80 Fall Risk: High Risk Safety Measures: Call light Within Reach, Bed Alarm Zone 2, Side Rails Side Rails x2, Bed position Low and Locked. Fall Precautions: Yellow Socks Yellow Gown Door Sign Patient Fall Education Report given to Iraida WU.
--- NOTE | 2020-09-15 19:15 | NUR ---
NURSE NOTES: Patient voided on bedpan, 300 ml yellow urine, at 1300, encouraged PO fluid intake, throughout shift, offered bedpan at 1600, voided small amount on chux pad in bedpan, PVR 402 ml at 1810, patient wanted to try to void on bedpan once more, voided 175 ml, endorsed above to plant operator.
[2020-09-15 20:00] VITALS: BP 125/62
--- NOTE | 2020-09-15 20:01 | NUR ---
NURSE NOTES: Received report from JAZMIN Bhatia. AAO x 4, on NC1l. Fall precaution maintained. Pt voided bedpan. Will provide bedpan and monitor urinary retention. IV site intact and patent. Denies pain or discomfort. No acute distress noted. Bed locked, lowest position, alarm on, side rails up, call light within reach. Will continue to monitor.
--- NOTE | 2020-09-15 22:10 | NUR ---
NURSE NOTES: Provided bedpan and pt voided 250cc.
[2020-09-16] VITALS: BP 162/57
[2020-09-16] MEDS: HYDROcodone/Acetamin 5/325 tab ORAL PRN ×3 (00:03→15:34)
[2020-09-16 04:00] VITALS: BP 157/58
[2020-09-16] MEDS: NovoLOG Insulin Flexpen SUBQ SCH ×4 (05:34→20:28)
[2020-09-16 05:50] LABS: BASOPHILS % (AUTO) 0.4 % (0.0-2.0); EOSINOPHILS % (AUTO) 3.4 % (0.0-3.0); HEMATOCRIT 29.1 % (37.0-47.0); MEAN CORPUSCULAR VOLUME 91 FL (80-99); MONOCYTES % (AUTO) 5.1 % (1.0-10.0); NEUTROPHILS % (AUTO) 82.1 % (45.0-75.0); PLATELET COUNT 534 K/UL (150-450); RED CELL DISTRIBUTION WIDTH 14.2 % (11.6-14.8); WHITE BLOOD COUNT 9.1 K/UL (4.8-10.8)
--- NOTE | 2020-09-16 06:15 | NUR ---
NURSE NOTES: Pt has not voided for 6hrs. Bladder scan performed and 330cc residual noted. RN encouraged to void by herself.
[2020-09-16 06:20] LABS: ANION GAP 8 mmol/L (5-15); BLOOD UREA NITROGEN 13 mg/dL (7-18); CALCIUM 8.7 MG/DL (8.5-10.1); CARBON DIOXIDE 28 MMOL/L (21-32); CHLORIDE 95 MMOL/L (98-107); CREATININE 0.8 MG/DL (0.55-1.30); POTASSIUM 3.5 MMOL/L (3.5-5.1); SODIUM 131 MMOL/L (136-145)
--- NOTE | 2020-09-16 06:37 | NUR ---
NURSE HAND-OFF: Important Events on Shift:HTN, voided x1 Patient Status: stable Diet: CCHO M Pending Orders: Pending Results/Labs:am labs Pending MD notification: Latest Vital Signs: Temperature 97.8 , Pulse 85 , B/P 157 /58 , Respiratory Rate 18 , O2 SAT 92 , Simple Mask, O2 Flow Rate 1.0 . Vital Sign Comment: [] Latest Dahl Fall Score: 80 Fall Risk: High Risk Safety Measures: Call light Within Reach, Bed Alarm Zone 2, Side Rails Side Rails x2, Bed position Low and Locked. Fall Precautions: Yellow Socks Yellow Gown Door Sign Patient Fall Education Addendum: 09/16/20 at 0717 by ALAYNA FONG RN RN HAND-OFF: Report given to Jannette.
--- NOTE | 2020-09-16 07:12 | NUR ---
NURSE NOTES: Report received from Iraida WU, rounds made. Patient resting in semi-fowlers position in bed. AOx4, calm. Uzbek speaking. Respirations even/unlabored on RA. Left hip dressing, intact (4x4 with tegederm), upper part of dressing with small stained area, will change. Neuros intact, skin warm, wiggles, pulses palpable, no NT. Denies pain at rest, will medicate prior to PT. Encouraged CDB, ankle rotation. Encouraged PO fluid intake, will monitor urine output.Call light in reach, bed in lowest position, will continue to monitor.
[2020-09-16 08:00] VITALS: BP 132/75
--- NOTE | 2020-09-16 08:50 | NUR ---
NURSE NOTES: Discussed with Dr. Inman, patient continues to have urinary retention, voiding, but has large amount of urine on PVR, urine cloudy, eMAR reviewed (Levaquin QD), Labs reviewed (urine culture E.coli, UTI). No further orders at this time.
[2020-09-16] MEDS: Lisinopril 10mg tab ORAL SCH (09:06)
[2020-09-16] MEDS: hydroCHLOROthiazide 25mg cap ORAL SCH (09:06)
[2020-09-16] MEDS: metFORMIN 500mg tab ORAL SCH ×2 (09:06→18:39)
[2020-09-16] MEDS: Enoxaparin 40mg Inj SUBQ SCH (09:06)
[2020-09-16] MEDS: Cilostazol 100mg tab ORAL SCH ×2 (09:06→18:39)
--- NOTE | 2020-09-16 10:20 | Pulmonology Progress Note ---
Subjective ROS Limited/Unobtainable: No Interval Events: s/p left hip pinning Constitutional: Reports: no symptoms HEENT: Repors: no symptoms Respiratory: Reports: shortness of breath - improved Cardiovascular: Reports: no symptoms Gastrointestinal/Abdominal: Reports: no symptoms Allergies: Coded Allergies: No Known Allergies (Unverified , 09/06/20) All Systems: reviewed and negative except above Objective Last 24 Hour Vital Signs Date Time Temp Pulse Resp B/P (MAP) Pulse Ox O2 Delivery O2 Flow Rate FiO2 09/16/20 09:06 132/75 09/16/20 08:00 97.5 74 18 132/75 (94) 92 09/16/20 04:00 97.8 85 18 157/58 (91) 92 09/16/20 00:04 162/57 09/16/20 00:00 97.5 83 18 162/57 (92) 97 09/15/20 21:00 Nasal Cannula 1.0 09/15/20 20:00 97.4 84 18 125/62 (83) 96 09/15/20 18:05 84 132/64 (86) 09/15/20 16:00 96.4 80 18 118/53 (74) 98 09/15/20 12:00 97.4 85 18 151/62 (91) 97 Intake and Output 09/15/20 09/16/20 19:00 07:00 Intake Total 600 ml 500 ml Output Total 775 ml Balance 600 ml -275 ml Intake Oral 500 ml Other 600 ml Output Urine Total 775 ml Bladder Scan Volume Amount 330 # Voids 4 Objective 09/16 saturating well on RA; ?urinary retention 09/15 NAD; saturating at 93-95% on 1L NC 09/14 NAD; saturating at 90% on RA; put her back on 1-2L NC as needed 09/13 NAD; saturating at 98% on 2L NC; stable 09/12 NAD; saturation stable on 2L NC 09/11 remains on 2L NC saturating at 98% 09/10 no change 09/09 on 2L NC saturating well 09/08 on 2L NC saturating well General Appearance: WD/WN HEENT: atraumatic Respiratory: lungs clear Cardiovascular: normal rate, regular rhythm Abdomen: soft, non tender Microbiology Date/Time Source Procedure Growth Status 09/14/20 10:20 Indwelling Cath Urine Culture - Final Escherichia Coli Complete Laboratory Tests 09/15/20 11:43: POC Whole Blood Glucose 191H 09/15/20 16:29: POC Whole Blood Glucose 193H 09/15/20 20:23: POC Whole Blood Glucose 158H 09/16/20 04:00: White Blood Count 9.1, Red Blood Count 3.20L, Hemoglobin 10.0L, Hematocrit 29.1L , Mean Corpuscular Volume 91, Mean Corpuscular Hemoglobin 31.2H, Mean Corpu scular Hemoglobin Concent 34.2, Red Cell Distribution Width 14.2, Platelet Count 534H, Mean Platelet Volume 6.2L, Neutrophils (%) (Auto) 82.1H, Lymphocytes (%) (Auto) 9.0L, Monocytes (%) (Auto) 5.1, Eosinophils (%) (Auto) 3.4H, Basophils (%) (Auto) 0.4, Sodium Level 131L, Potassium Level 3.5, Chloride Level 95L, Carbon Dioxide Level 28, Anion Gap 8, Blood Urea Nitrogen 13, Creatinine 0.8, Estimat Glomerular Filtration Rate > 60, Glucose Level 172H, Calcium Level 8.7 09/16/20 05:10: POC Whole Blood Glucose 181H Current Medications Medications (Trade) Dose Ordered Sig/Serena Route PRN Reason Start Time Stop Time Status Last Admin Dose Admin Acetaminophen (Tylenol) 650 mg Q6H PRN ORAL Temp >100.5 09/09/20 09:30 10/09/20 09:29 09/14/20 08:04 Acetaminophen/ Hydrocodone Bitart ([place] 5/325) 1 tab Q6H PRN ORAL For Pain 09/15/20 04:45 09/22/20 04:44 09/16/20 09:07 Cilostazol (Pletal) 50 mg TWICE A DAY ORAL 09/12/20 09:00 10/12/20 08:59 09/16/20 09:06 Clonidine HCl (Catapres Tab) 0.1 mg EVERY 6 HOURS PRN ORAL SBP > 160 mm Hg 09/11/20 11:15 12/10/20 11:14 09/16/20 00:04 Dextrose (Dextrose 50%) 25 ml Q30M PRN IV Hypoglycemia 09/07/20 15:00 12/06/20 14:59 Dextrose (Dextrose 50%) 50 ml Q30M PRN IV Hypoglycemia 09/07/20 15:00 12/06/20 14:59 Enoxaparin Sodium (Lovenox) 40 mg DAILY SUBQ 09/13/20 09:00 12/12/20 08:59 09/16/20 09:06 Famotidine (Pepcid) 20 mg DAILY ORAL 09/12/20 09:00 12/11/20 08:59 09/16/20 09:06 Ferrous Sulfate (Feosol) 325 mg TWICE A DAY ORAL 09/12/20 09:00 12/11/20 08:59 09/16/20 09:06 Gabapentin (Neurontin) 300 mg BEDTIME ORAL 09/12/20 21:00 10/12/20 20:59 09/15/20 20:36 Hydrochlorothiazide (Hydrodiuril) 25 mg DAILY ORAL 09/12/20 09:00 10/12/20 08:59 09/16/20 09:06 Insulin Aspart (NovoLOG) BEFORE MEALS AND HS SUBQ 09/07/20 16:30 12/06/20 16:29 09/16/20 05:34 Levofloxacin (Levaquin) 250 mg DAILY ORAL 09/14/20 18:30 09/21/20 18:29 09/16/20 09:06 Levothyroxine Sodium (Synthroid) 88 mcg ACBREAKFAST ORAL 09/12/20 06:30 10/12/20 06:29 09/16/20 05:30 Lisinopril (ZestriL) 10 mg DAILY ORAL 09/12/20 09:00 10/12/20 08:59 09/16/20 09:06 Metformin HCl (Glucophage) 500 mg TWICE A DAY ORAL 09/12/20 06:30 10/12/20 08:59 09/16/20 09:06 Ondansetron HCl (Zofran) 4 mg Q6H PRN IVP Nausea & Vomiting 09/13/20 10:15 10/13/20 10:14 Assessment/Plan Assessment/Plan 1. Left femur fracture - s/p Left hip pinning operation by Dr. Corral 2. 1.7 cm right lobe pulmonary nodule -CT of the abdomen and pelvis showed a 1.7 cm right lobe pulmonary nodule which is very suspicious for lung cancer -Further history is required either from patient or patient's family. -scheduled for CT guided needle Bx of lung nodule on 09/12/[address] Orr; however, imaging department recommends that the pt should tests negative for COVID-[address] with contrast prior to CT-guided needle Bx of lung nodule due to risk of pneumothorax - CT chest 09/14 previous demonstrated lung mass no longer visible. perhaps obscured or consolidations that have resolved since; follow up CT is recommended as an outpatient - appreciate heme-onc consult 3. Cholelithiasis without evidence of cholecystitis - monitor 4. Anemia; better - heme-onc following - IV fluid DC'd - s/p transfusion - on PO iron 5. Hyponatremia - monitor 6. Hypochloremia - IV fluid DC'd - monitor 7. Diabetes mellitus with hyperglycemia - monitor BGs - on insulin sensitive scale - on metformin 8. COVID-19 infection; could be mild case or early phase - given her normoxemia on room air, without SOB, fever, cough, no specific therapy required for COVID-19 at this time - Monitor SaO2 and provide supplemental oxygen as needed 9. Hypertension - on prn clonidine for SBP >160, and lisinopril 10. DVT ppx - on Lovenox 40 - D/w surgeon 11. New onset fever; resolved - Sjpp=790.0 12. E Coli UTI - started on Levaquin 13. Hypokalemia - K replaced; now resolved - ordered Mg lab; Mg 1.5 14. urinary retention - Will reinsert colindres before dc resume diabetic diet CT chest no longer demonstrates lung nodule; follow up CT as an outpatient will dc if stable labs The care for this patient was discussed with my supervising physician. Time spent for this case was approximately 31 minutes. Piter Inman Sep 16, 2020 10:20
[2020-09-16] MEDS ORDERED: Dyna-Hex 2% Top Sol 2oz TOPIC SCH (10:45)
--- NOTE | 2020-09-16 11:30 | NUR ---
NURSE NOTES: Confirmed with Dr. Inman, patient will keep indwelling FC upon discharge.
--- NOTE | 2020-09-16 11:34 | Hematology/Onc Progress Note ---
Assessment/Plan Assessment/Plan Imagin. Comminuted, angulated, and displaced left intertrochanteric femur fracture. 2. 1.7 cm right lobe pulmonary nodule with irregular margins, suspicious for primary lung malignancy. Consider tissue biopsy for further evaluation. 3. 8 mm left lingular pulmonary nodule. Consider PET CT, short interval follow-up CT, versus tissue biopsy for further evaluation. Impression # 1.7 cm right lobe pulmonary nodule, also with lingular mass --> CT of the abdomen and pelvis showed a 1.7 cm right lobe pulmonary nodule which is very suspicious for lung cancer --> Ordered tissue biopsy for further evaluation --> Discuss care plan once she recovers from surgery # Anemia likely related from hemodilution --> obtain anemia panel --> repeat cbc --> hgb 9.7--> 7.2--> 10 # Left femur fracture --> Left hip pinning operation scheduled by Dr. Corral --> Ortho surgery input appreciated # Cholelithiasis without evidence of cholecystitis --> monitor # Hyponatremia --> ivfs # Hypochloremia --> monitor and check AM labs # Diabetes mellitus with hyperglycemia --> monitor BGs --> we will initiate insulin sensitive scale # COVID-19 infection; could be mild case or early phase --> per pulm # DVT ppx post surgery Appreciate consultation and corinne Rivera Subjective Allergies: Coded Allergies: No Known Allergies (Unverified , 09/06/20) Subjective Subjective: 1/2: no acute events reported. onm Lovenox sq, dc planning per primary care team 09/11: hgb 7.2 no active bleeding reported d/w JAZMIN Sharma 09/16: labs reviewed no acute events Objective Objective Current Medications Medications (Trade) Dose Ordered Sig/Serena Route PRN Reason Start Time Stop Time Status Last Admin Dose Admin Acetaminophen (Tylenol) 650 mg Q6H PRN ORAL Temp >100.5 09/09/20 09:30 10/09/20 09:29 09/14/20 08:04 Acetaminophen/ Hydrocodone Bitart ([place] 5/325) 1 tab Q6H PRN ORAL For Pain 09/15/20 04:45 09/22/20 04:44 09/16/20 09:07 Chlorhexidine Gluconate (Hilary-Hex 2%) 1 applic ONCE TOPIC 09/16/20 10:45 09/16/20 12:00 Cilostazol (Pletal) 50 mg TWICE A DAY ORAL 09/12/20 09:00 10/12/20 08:59 09/16/20 09:06 Clonidine HCl (Catapres Tab) 0.1 mg EVERY 6 HOURS PRN ORAL SBP > 160 mm Hg 09/11/20 11:15 12/10/20 11:14 09/16/20 00:04 Dextrose (Dextrose 50%) 25 ml Q30M PRN IV Hypoglycemia 09/07/20 15:00 12/06/20 14:59 Dextrose (Dextrose 50%) 50 ml Q30M PRN IV Hypoglycemia 09/07/20 15:00 12/06/20 14:59 Enoxaparin Sodium (Lovenox) 40 mg DAILY SUBQ 09/13/20 09:00 12/12/20 08:59 09/16/20 09:06 Famotidine (Pepcid) 20 mg DAILY ORAL 09/12/20 09:00 12/11/20 08:59 09/16/20 09:06 Ferrous Sulfate (Feosol) 325 mg TWICE A DAY ORAL 09/12/20 09:00 12/11/20 08:59 09/16/20 09:06 Gabapentin (Neurontin) 300 mg BEDTIME ORAL 09/12/20 21:00 10/12/20 20:59 09/15/20 20:36 Hydrochlorothiazide (Hydrodiuril) 25 mg DAILY ORAL 09/12/20 09:00 10/12/20 08:59 09/16/20 09:06 Insulin Aspart (NovoLOG) BEFORE MEALS AND HS SUBQ 09/07/20 16:30 12/06/20 16:29 09/16/20 05:34 Levofloxacin (Levaquin) 250 mg DAILY ORAL 09/14/20 18:30 09/21/20 18:29 09/16/20 09:06 Levothyroxine Sodium (Synthroid) 88 mcg ACBREAKFAST ORAL 09/12/20 06:30 10/12/20 06:29 09/16/20 05:30 Lisinopril (ZestriL) 10 mg DAILY ORAL 09/12/20 09:00 10/12/20 08:59 09/16/20 09:06 Metformin HCl (Glucophage) 500 mg TWICE A DAY ORAL 09/12/20 06:30 10/12/20 08:59 09/16/20 09:06 Ondansetron HCl (Zofran) 4 mg Q6H PRN IVP Nausea & Vomiting 09/13/20 10:15 10/13/20 10:14 Last 24 Hour Vital Signs Date Time Temp Pulse Resp B/P (MAP) Pulse Ox O2 Delivery O2 Flow Rate FiO2 09/16/20 09:06 132/75 09/16/20 08:00 97.5 74 18 132/75 (94) 92 09/16/20 04:00 97.8 85 18 157/58 (91) 92 09/16/20 00:04 162/57 09/16/20 00:00 97.5 83 18 162/57 (92) 97 09/15/20 21:00 Nasal Cannula 1.0 09/15/20 20:00 97.4 84 18 125/62 (83) 96 09/15/20 18:05 84 132/64 (86) 09/15/20 16:00 96.4 80 18 118/53 (74) 98 09/15/20 12:00 97.4 85 18 151/62 (91) 97 09/15/20 10:03 164/63 09/15/20 09:00 Nasal Cannula 1.0 09/15/20 08:00 98.8 87 18 164/63 (96) 94 09/15/20 04:00 98.6 91 19 151/58 (89) 93 09/14/20 23:46 96.4 88 19 136/54 (81) 95 09/14/20 21:00 Nasal Cannula 1.0 09/14/20 20:00 99.6 93 20 161/62 (95) 97 09/14/20 16:00 98.7 94 20 148/65 (92) 92 09/14/20 12:00 97.6 84 20 144/53 (83) 95 Intake and Output 09/15/20 09/16/20 19:00 07:00 Intake Total 600 ml 500 ml Output Total 775 ml Balance 600 ml -275 ml Intake Oral 500 ml Other 600 ml Output Urine Total 775 ml Bladder Scan Volume Amount 330 # Voids 4 Labs Test 09/13/20 16:43 09/13/20 20:06 09/14/20 05:31 09/14/20 09:05 POC Whole Blood Glucose 173 MG/DL (74-106) 164 MG/DL (74-106) White Blood Count 9.0 K/UL (4.8-10.8) Red Blood Count 3.18 M/UL (4.20-5.40) Hemoglobin 9.7 G/DL (12.0-16.0) Hematocrit 29.2 % (37.0-47.0) Mean Corpuscular Volume 92 FL (80-99) Mean Corpuscular Hemoglobin 30.7 PG (27.0-31.0) Mean Corpuscular Hemoglobin Concent 33.4 G/DL (32.0-36.0) Red Cell Distribution Width 13.8 % (11.6-14.8) Platelet Count 412 K/UL (150-450) Mean Platelet Volume 5.8 FL (6.5-10.1) Neutrophils (%) (Auto) 81.6 % (45.0-75.0) Lymphocytes (%) (Auto) 11.1 % (20.0-45.0) Monocytes (%) (Auto) 5.6 % (1.0-10.0) Eosinophils (%) (Auto) 1.3 % (0.0-3.0) Basophils (%) (Auto) 0.4 % (0.0-2.0) Test 09/14/20 10:20 09/14/20 11:25 09/14/20 16:27 09/14/20 20:41 Urine Color Pale yellow Urine Appearance Turbid Urine pH 5 (4.5-8.0) Urine Specific [place] 1.015 (1.005-1.035) Urine Protein 3+ (NEGATIVE) Urine Glucose (UA) Negative (NEGATIVE) Urine Ketones 3+ (NEGATIVE) Urine Blood 4+ (NEGATIVE) Urine Nitrite Positive (NEGATIVE) Urine Bilirubin Negative (NEGATIVE) Urine Urobilinogen Normal MG/DL (0.0-1.0) Urine Leukocyte Esterase 3+ (NEGATIVE) Urine RBC 5-10 /HPF (0 - 2) Urine WBC Tntc /HPF (0 - 2) Urine Squamous Epithelial Cells Occasional /LPF Urine Bacteria Many /HPF (NONE) POC Whole Blood Glucose 169 MG/DL (74-106) 185 MG/DL (74-106) 213 MG/DL (74-106) Test 09/15/20 05:30 09/15/20 06:22 09/15/20 11:43 09/15/20 16:29 White Blood Count 8.5 K/UL (4.8-10.8) Red Blood Count 3.34 M/UL (4.20-5.40) Hemoglobin 10.3 G/DL (12.0-16.0) Hematocrit 30.9 % (37.0-47.0) Mean Corpuscular Volume 92 FL (80-99) Mean Corpuscular Hemoglobin 31.0 PG (27.0-31.0) Mean Corpuscular Hemoglobin Concent 33.5 G/DL (32.0-36.0) Red Cell Distribution Width 13.7 % (11.6-14.8) Platelet Count 469 K/UL (150-450) Mean Platelet Volume 5.9 FL (6.5-10.1) Neutrophils (%) (Auto) 83.1 % (45.0-75.0) Lymphocytes (%) (Auto) 9.8 % (20.0-45.0) Monocytes (%) (Auto) 5.0 % (1.0-10.0) Eosinophils (%) (Auto) 1.9 % (0.0-3.0) Basophils (%) (Auto) 0.2 % (0.0-2.0) Sodium Level 133 MMOL/L (136-145) Potassium Level 2.7 MMOL/L (3.5-5.1) Chloride Level 95 MMOL/L (98-107) Carbon Dioxide Level 28 MMOL/L (21-32) Anion Gap 9 mmol/L (5-15) Blood Urea Nitrogen 11 mg/dL (7-18) Creatinine 0.7 MG/DL (0.55-1.30) Estimat Glomerular Filtration Rate > 60 mL/min (>60) Glucose Level 154 MG/DL (74-106) Calcium Level 8.7 MG/DL (8.5-10.1) Magnesium Level 1.5 MG/DL (1.8-2.4) Total Bilirubin 0.8 MG/DL (0.2-1.0) Aspartate Amino Transf (AST/SGOT) 37 U/L (15-37) Alanine Aminotransferase (ALT/SGPT) 24 U/L (12-78) Alkaline Phosphatase 76 U/L (46-116) Total Protein 6.9 G/DL (6.4-8.2) Albumin 1.9 G/DL (3.4-5.0) Globulin 5.0 g/dL Albumin/Globulin Ratio 0.4 (1.0-2.7) POC Whole Blood Glucose 165 MG/DL (74-106) 191 MG/DL (74-106) 193 MG/DL (74-106) Test 09/15/20 20:23 09/16/20 04:00 09/16/20 05:10 POC Whole Blood Glucose 158 MG/DL (74-106) 181 MG/DL (74-106) White Blood Count 9.1 K/UL (4.8-10.8) Red Blood Count 3.20 M/UL (4.20-5.40) Hemoglobin 10.0 G/DL (12.0-16.0) Hematocrit 29.1 % (37.0-47.0) Mean Corpuscular Volume 91 FL (80-99) Mean Corpuscular Hemoglobin 31.2 PG (27.0-31.0) Mean Corpuscular Hemoglobin Concent 34.2 G/DL (32.0-36.0) Red Cell Distribution Width 14.2 % (11.6-14.8) Platelet Count 534 K/UL (150-450) Mean Platelet Volume 6.2 FL (6.5-10.1) Neutrophils (%) (Auto) 82.1 % (45.0-75.0) Lymphocytes (%) (Auto) 9.0 % (20.0-45.0) Monocytes (%) (Auto) 5.1 % (1.0-10.0) Eosinophils (%) (Auto) 3.4 % (0.0-3.0) Basophils (%) (Auto) 0.4 % (0.0-2.0) Sodium Level 131 MMOL/L (136-145) Potassium Level 3.5 MMOL/L (3.5-5.1) Chloride Level 95 MMOL/L (98-107) Carbon Dioxide Level 28 MMOL/L (21-32) Anion Gap 8 mmol/L (5-15) Blood Urea Nitrogen 13 mg/dL (7-18) Creatinine 0.8 MG/DL (0.55-1.30) Estimat Glomerular Filtration Rate > 60 mL/min (>60) Glucose Level 172 MG/DL (74-106) Calcium Level 8.7 MG/DL (8.5-10.1) Height (Feet): 5 Height (Inches): 0.00 Weight (Pounds): 120 Objective PE: VS: reviewed HEENT: Head examination reveals that the head is normocephalic, atraumatic without deformity or unusual swelling. Chest and Lung: Reveals clear, normal, symmetrical breath sounds with no adventitious sound. Cardiovascular: Reveals normal S1, S2 without murmurs, rubs or clicks Abdomen: Soft with no tenderness or organomegaly Rectal: Deferred Musculoskeletal: Tenderness to palpation of the left hip region. Left hip is externally rotated with knees flexed in bed. neurological: Cranial nerves II to XII are intact. Gait is normal without ataxia. DTRs are normal. Babinski is downgoing. Nessa Winchester NP Sep 16, 2020 11:33
[2020-09-16 12:00] VITALS: BP 115/58
--- NOTE | 2020-09-16 14:31 | NUR ---
CASE MANAGEMENT:REVIEW SI;COVID PNEUMONIA. LT HIP PINNING 09/07/20. 98.3 85 18 162/57 92% 1L NC H/H 10.0/29.1 PLT 534 NA 131 BG 233 IS;NORCO PO Q6 PRN LEVAQUIN PO QD HCTZ PO QD PEPCID PO QD PLETAL PO BID MED SURG STATUS DCP;FROM HOME
--- NOTE | 2020-09-16 15:33 | NUR ---
*-*DISCHARGE PLANNING*-* PATIENT HAS BEEN REFERRED TO: [facility] P: [phone] S/W KALINA, CANNOT ACCEPT DUE TO LOW ON STAFFING, DUE TO COVID.
--- NOTE | 2020-09-16 15:34 | NUR ---
*-*DISCHARGE PLANNING*-* PATIENT HAS BEEN REFERRED TO: [facility] P: [phone] S/W BUBBA, WILL CALL BACK AFTER REVIEW.
--- NOTE | 2020-09-16 15:35 | NUR ---
NURSE NOTES: FC (16FR) inserted at 1510, anchor to left thigh, yellow cloudy urine noted, encouraged po fluid intake. Left hip dressing changed, with 4x4, tegederm, surrounding skin intact, ice pack to left hip, medicated with [place] 5 mg. Spoke with Rody PARIKH regarding DC plans, awaiting on finding a bed. 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
--- NOTE | 2020-09-16 15:36 | NUR ---
*-*DISCHARGE PLANNING*-* PATIENT HAS BEEN REFERRED TO: [facility] P: [phone]
[2020-09-16 16:00] VITALS: BP 121/59
--- NOTE | 2020-09-16 17:07 | NUR ---
*-*DISCHARGE PLANNING*-* PATIENT HAS BEEN REFERRED TO: [facility] P: [phone] S/W TAMMY, CANNOT ACCEPT, DUE TO INSURANCE.
--- NOTE | 2020-09-16 19:04 | NUR ---
NURSE HAND-OFF: Important Events on Shift:FC at 1510, Dtr picked up belongings, Left hip dressing changed Patient Status: stable Diet: CCHO med Pending Orders: DC planning Pending Results/Labs:none Pending MD notification:none Latest Vital Signs: Temperature 98.5 , Pulse 79 , B/P 121 /59 , Respiratory Rate 18 , O2 SAT 96 , Simple Mask, O2 Flow Rate 1.0 . Vital Sign Comment: none Latest Dahl Fall Score: 80 Fall Risk: High Risk Safety Measures: Call light Within Reach, Bed Alarm Zone 2, Side Rails Side Rails x2, Bed position Low and Locked. Fall Precautions: Yellow Socks Yellow Gown Door Sign Patient Fall Education Report given to Iraida WU.
--- NOTE | 2020-09-16 19:17 | NUR ---
NURSE NOTES: Received report from JAZMIN Bhatia. AAO x 4, on RA. Fall precaution maintained. Juan in place for urinary retention. IV site intact and patent. No acute distress noted. Bed locked, lowest position, alarm on, side rails up, call light within reach. Will continue to monitor.
[2020-09-16 20:00] VITALS: BP 133/54
[2020-09-17] VITALS: BP 134/58
[2020-09-17 04:00] VITALS: BP 154/66
[2020-09-17] MEDS: NovoLOG Insulin Flexpen SUBQ SCH ×4 (05:49→20:18)
--- NOTE | 2020-09-17 07:22 | NUR ---
NURSE HAND-OFF: Important Events on Shift:pain Patient Status: stable Diet: CCHO M Pending Orders: Pending Results/Labs: Pending MD notification: Latest Vital Signs: Temperature 97.9 , Pulse 87 , B/P 154 /66 , Respiratory Rate 20 , O2 SAT 96 , Simple Mask, O2 Flow Rate 1.0 . Vital Sign Comment: [] Latest Dahl Fall Score: 80 Fall Risk: High Risk Safety Measures: Call light Within Reach, Bed Alarm Zone 2, Side Rails Side Rails x2, Bed position Low and Locked. Fall Precautions: Yellow Socks Yellow Gown Door Sign Patient Fall Education
--- NOTE | 2020-09-17 07:45 | NUR ---
NURSE NOTES: Received report from Ozzie WU. Patient is awake, in bed, alert and oriented x4, Italian speaking. Breakfast tray set up. No pain reported. No SOB noted, on room air. Juan is patent and draining, stat6 lock in place. Surgical site clean,dry, intact. Bed in lowest position, side rails up x3, call light in reach, bed alarm on. Addendum: 09/17/20 at 0825 by Lata Mckeon RN Received report from Iraida WU
[2020-09-17 08:00] VITALS: BP 135/55
[2020-09-17] MEDS: metFORMIN 500mg tab ORAL SCH ×2 (09:25→17:52)
[2020-09-17] MEDS: hydroCHLOROthiazide 25mg cap ORAL SCH (09:25)
[2020-09-17] MEDS: Cilostazol 100mg tab ORAL SCH ×2 (09:26→17:52)
[2020-09-17] MEDS: Enoxaparin 40mg Inj SUBQ SCH (09:28)
[2020-09-17] MEDS: Lisinopril 10mg tab ORAL SCH (09:48)
[2020-09-17 12:00] VITALS: BP 130/59
--- NOTE | 2020-09-17 13:04 | Pulmonology Progress Note ---
Subjective ROS Limited/Unobtainable: No Interval Events: s/p left hip pinning Constitutional: Reports: no symptoms HEENT: Repors: no symptoms Respiratory: Reports: shortness of breath - improved Cardiovascular: Reports: no symptoms Gastrointestinal/Abdominal: Reports: no symptoms Allergies: Coded Allergies: No Known Allergies (Unverified , 09/06/20) All Systems: reviewed and negative except above Objective Last 24 Hour Vital Signs Date Time Temp Pulse Resp B/P (MAP) Pulse Ox O2 Delivery O2 Flow Rate FiO2 09/17/20 12:00 97.9 89 20 130/59 (82) 97 09/17/20 09:48 135/55 09/17/20 09:00 Room Air 09/17/20 08:00 97.9 90 20 135/55 (81) 94 09/17/20 04:00 97.9 87 20 154/66 (95) 96 09/17/20 00:00 97.7 82 20 134/58 (83) 92 09/16/20 20:38 Room Air 09/16/20 20:00 97.7 81 20 133/54 (80) 94 09/16/20 16:00 98.5 79 18 121/59 (79) 96 Intake and Output 09/16/20 09/17/20 19:00 07:00 Intake Total 600 ml Output Total 600 ml 850 ml Balance 0 ml -850 ml Other 600 ml Output Urine Total 600 ml 850 ml # Voids 1 General Appearance: WD/WN HEENT: atraumatic Respiratory: lungs clear Cardiovascular: normal rate, regular rhythm Abdomen: soft, non tender Laboratory Tests 09/16/20 16:45: POC Whole Blood Glucose 197H 09/16/20 20:01: POC Whole Blood Glucose 146H 09/17/20 05:47: POC Whole Blood Glucose 168H 09/17/20 11:51: POC Whole Blood Glucose 223H Current Medications Medications (Trade) Dose Ordered Sig/Serena Route PRN Reason Start Time Stop Time Status Last Admin Dose Admin Acetaminophen (Tylenol) 650 mg Q6H PRN ORAL Temp >100.5 09/09/20 09:30 10/09/20 09:29 09/14/20 08:04 Acetaminophen/ Hydrocodone Bitart ([place] 5/325) 1 tab Q6H PRN ORAL For Pain 09/15/20 04:45 09/22/20 04:44 1/8/21 15:34 Cilostazol (Pletal) 50 mg TWICE A DAY ORAL 09/12/20 09:00 10/12/20 08:59 09/17/20 09:26 Clonidine HCl (Catapres Tab) 0.1 mg EVERY 6 HOURS PRN ORAL SBP > 160 mm Hg 09/11/20 11:15 12/10/20 11:14 09/16/20 00:04 Dextrose (Dextrose 50%) 25 ml Q30M PRN IV Hypoglycemia 09/07/20 15:00 12/06/20 14:59 Dextrose (Dextrose 50%) 50 ml Q30M PRN IV Hypoglycemia 09/07/20 15:00 12/06/20 14:59 Enoxaparin Sodium (Lovenox) 40 mg DAILY SUBQ 09/13/20 09:00 12/12/20 08:59 09/17/20 09:28 Famotidine (Pepcid) 20 mg DAILY ORAL 09/12/20 09:00 12/11/20 08:59 09/17/20 09:26 Ferrous Sulfate (Feosol) 325 mg TWICE A DAY ORAL 09/12/20 09:00 12/11/20 08:59 09/17/20 09:27 Gabapentin (Neurontin) 300 mg BEDTIME ORAL 09/12/20 21:00 10/12/20 20:59 09/16/20 20:06 Hydrochlorothiazide (Hydrodiuril) 25 mg DAILY ORAL 09/12/20 09:00 10/12/20 08:59 09/17/20 09:25 Insulin Aspart (NovoLOG) BEFORE MEALS AND HS SUBQ 09/07/20 16:30 12/06/20 16:29 09/17/20 12:21 Levofloxacin (Levaquin) 250 mg DAILY ORAL 09/14/20 18:30 09/21/20 18:29 09/17/20 09:27 Levothyroxine Sodium (Synthroid) 88 mcg ACBREAKFAST ORAL 09/12/20 06:30 10/12/20 06:29 09/17/20 05:50 Lisinopril (ZestriL) 10 mg DAILY ORAL 09/12/20 09:00 10/12/20 08:59 09/17/20 09:48 Metformin HCl (Glucophage) 500 mg TWICE A DAY ORAL 09/12/20 06:30 10/12/20 08:59 09/17/20 09:25 Ondansetron HCl (Zofran) 4 mg Q6H PRN IVP Nausea & Vomiting 09/13/20 10:15 10/13/20 10:14 Assessment/Plan Assessment/Plan Assessment/Plan 1. Left femur fracture 2. Pulmonary nodule 3. Cholelithiasis without evidence of cholecystitis 4. Anemia 5. Diabetes mellitus with hyperglycemia 6. COVID-19 7. Hypertension 8. UTI PLAN: Contd Present treatment room air saturating at 94% on iron supplement for anemia Metformin for D/M ABT for UTI The care for this patient was discussed with my supervising physician. Edith Angel NP Sep 17, 2020 13:04 Yuval Granger MD Sep 17, 2020 14:53
--- NOTE | 2020-09-17 14:07 | NUR ---
NURSE NOTES: Spoke to daughter Tanisha regarding discharge planning and update on patient status. Aide (daughter) insists on discharge to home. PT has recommended SNF. Dr.Gulwani yanes.
[2020-09-17 16:00] VITALS: BP 148/81
[2020-09-17] MEDS ORDERED: Tubing IV Secondary IV ONE (17:02)
[2020-09-17] MEDS ORDERED: NS 500ML ONE (17:02)
[2020-09-17] MEDS: HYDROcodone/Acetamin 5/325 tab ORAL PRN (17:59)
--- NOTE | 2020-09-17 18:56 | NUR ---
NURSE HAND-OFF: Important Events on Shift:[] Patient Status: [stable] Diet: [CCHO med] Pending Orders: [] Pending Results/Labs:[] Pending MD notification:[] Latest Vital Signs: Temperature 98.2 , Pulse 88 , B/P 148 /81 , Respiratory Rate 20 , O2 SAT 94 , Simple Mask, O2 Flow Rate 1.0 . Vital Sign Comment: [] Latest Dahl Fall Score: 80 Fall Risk: High Risk Safety Measures: Call light Within Reach, Bed Alarm Zone 1, Side Rails Side Rails x2, Bed position Low and Locked. Fall Precautions: Yellow Socks Door Sign Patient Fall Education Report given to [Iraida WU].
[2020-09-17 20:00] VITALS: BP 157/68
[2020-09-18] VITALS: BP 151/61
[2020-09-18 04:00] VITALS: BP 147/54
[2020-09-18] MEDS: HYDROcodone/Acetamin 5/325 tab ORAL PRN ×2 (05:38→17:32)
[2020-09-18] MEDS: NovoLOG Insulin Flexpen SUBQ SCH ×4 (05:41→20:08)
--- NOTE | 2020-09-18 06:43 | NUR ---
NURSE HAND-OFF: Important Events on Shift:pain Patient Status: stable Diet: CCHO M Pending Orders: Pending Results/Labs: Pending MD notification: Latest Vital Signs: Temperature 98.1 , Pulse 85 , B/P 147 /54 , Respiratory Rate 19 , O2 SAT 96 , Simple Mask, O2 Flow Rate 1.0 . Vital Sign Comment: [] Latest Dahl Fall Score: 80 Fall Risk: High Risk Safety Measures: Call light Within Reach, Bed Alarm Zone 1, Side Rails Side Rails x2, Bed position Low and Locked. Fall Precautions: Yellow Socks Door Sign Patient Fall Education Addendum: 09/18/20 at 0726 by ALAYNA FONG RN RN HAND-OFF: Report given to
--- NOTE | 2020-09-18 07:35 | NUR ---
NURSE NOTES: RECEIVED PATIENT A/A/OX4. PANAMANIAN SPEAKING. ABLE TO COMPREHEND IN JAPANESE. LYING IN BED WITH HOD ELEVATED. ON O2 2L VIA NC. ON AND OFF WITH RA. O2 SATURATION IS BETWEEN 93-98%. NO ACUTE RESP DISTRESS NOTED. S/P LEFT HIP SURGERY DRSG DRY AND INTACT. REFLEX PRESENT. NO C/O PAIN/DISCOMFORT NOTED @ THIS TIME. HAD BREAKAST AND CONSUMED 80%. ABLE TO FEED SELF. PIV PATENT AND INTACT. F/C INPLACED AND DRAINING WELL. KEPT BED IN THE LOWEST POSITION. SIDERAILS ARE UPX3. CALL LIGHT IS WITHIN REACH. BED BRAKES AND LOCK ENGAGED. WILL CONT TO MONITOR.
[2020-09-18 08:00] VITALS: BP 131/44
[2020-09-18] MEDS: Cilostazol 100mg tab ORAL SCH ×2 (08:53→17:32)
[2020-09-18] MEDS: hydroCHLOROthiazide 25mg cap ORAL SCH (08:53)
[2020-09-18] MEDS: metFORMIN 500mg tab ORAL SCH ×2 (08:54→17:32)
[2020-09-18] MEDS: Lisinopril 10mg tab ORAL SCH (08:54)
[2020-09-18] MEDS: Enoxaparin 40mg Inj SUBQ SCH (08:57)
--- NOTE | 2020-09-18 10:09 | Hematology/Onc Progress Note ---
Assessment/Plan Assessment/Plan Laboratory data: Lab testing shows RBC 3.11, hemoglobin 9.7, hematocrit 27.4 Chemistries show sodium 130, chloride 96, glucose 168, alk phos 119 Urinalysis shows 1+ protein, 3+ glucose, 3+ ketones, 2+ blood Coagulation panel unremarkable Imagin. Comminuted, angulated, and displaced left intertrochanteric femur fracture. 2. 1.7 cm right lobe pulmonary nodule with irregular margins, suspicious for primary lung malignancy. Consider tissue biopsy for further evaluation. 3. 8 mm left lingular pulmonary nodule. Consider PET CT, short interval follow-up CT, versus tissue biopsy for further evaluation. Impression: # 1.7 cm right lobe pulmonary nodule, also with lingular mass--> on repeat imaging does not show it 09/14/19 --> CT of the abdomen and pelvis showed a 1.7 cm right lobe pulmonary nodule which is very suspicious for lung cancer --> biopsy is not needed as repeat ct scan does not show mass --> as per pulm # Anemia of iron deficiency --> obtain anemia panel-->reviewed --> repeat cbc --> hgb 9.7-->7.1-->9.7->10 --> po iron started # Left femur fracture --> Left hip pinning operation scheduled by Dr. Corral --> Ortho surgery input appreciated # Cholelithiasis without evidence of cholecystitis --> monitor # Hyponatremia --> ivfs # Hypochloremia --> monitor and check AM labs # Diabetes mellitus with hyperglycemia --> monitor BGs --> we will initiate insulin sensitive scale # COVID-19 infection; could be mild case or early phase --> per pulm # DVT ppx lovenox sq Appreciate consultation and dw Rn Subjective Constitutional: Denies: no symptoms, chills, fever, malaise, weakness, other HEENT: Denies: no symptoms, eye pain, blurred vision, tearing, double vision, ear pain, ear discharge, nose pain, nose congestion, throat pain, throat swelling, mouth pain, mouth swelling, other Cardiovascular: Denies: no symptoms, chest pain, edema, irregular heart rate, lightheadedness, palpitations, syncope, other Respiratory: Denies: no symptoms, cough, shortness of breath, SOB with excertion, SOB at rest, sputum, wheezing, other Gastrointestinal/Abdominal: Denies: no symptoms, abdomen distended, abdominal pain, black stools, tarry stools, blood in stool, constipated, diarrhea, difficulty swallowing, nausea, poor appetite, poor fluid intake, rectal bleeding, vomiting, other Genitourinary: Denies: no symptoms, burning, discharge, frequency, flank pain, hematuria, incontinence, pain, urgency, other Neurologic/Psychiatric: Denies: no symptoms, anxiety, depressed, emotional problems, headache, numbness, paresthesia, pre-existing deficit, seizure, ti ngling, tremors, weakness, other Allergies: Coded Allergies: No Known Allergies (Unverified , 09/06/20) Subjective 09/09 meds reviewed, no f/c, lovenox sq, pending a biopsy 09/10: no acute events reported. on Lovenox sq, dc planning per primary care team 09/11: hgb 7.2 no active bleeding reported d/w RN Edith 09/12 labs are still pending, is on lovenox sq 09/13 on simple mask, meds reviewed, cbc has been ordered again 09/14 on , corinne radiology yesterday and ct biopsy cancelled as with covid19 09/15 ct of the chest has been reviewed, no mass is noted, labs reviewed 09/16: no acute events reported. No bleeding. 09/18 with colindres, no bleeding, simple face mask, dw rn, no major changes Objective Objective Current Medications Medications (Trade) Dose Ordered Sig/Serena Route PRN Reason Start Time Stop Time Status Last Admin Dose Admin Acetaminophen (Tylenol) 650 mg Q6H PRN ORAL Temp >100.5 09/09/20 09:30 10/09/20 09:29 09/14/20 08:04 Acetaminophen/ Hydrocodone Bitart ([place] 5/325) 1 tab Q6H PRN ORAL For Pain 09/15/20 04:45 09/22/20 04:44 09/18/20 05:38 Cilostazol (Pletal) 50 mg TWICE A DAY ORAL 09/12/20 09:00 10/12/20 08:59 09/18/20 08:53 Clonidine HCl (Catapres Tab) 0.1 mg EVERY 6 HOURS PRN ORAL SBP > 160 mm Hg 09/11/20 11:15 12/10/20 11:14 09/16/20 00:04 Dextrose (Dextrose 50%) 25 ml Q30M PRN IV Hypoglycemia 09/07/20 15:00 12/06/20 14:59 Dextrose (Dextrose 50%) 50 ml Q30M PRN IV Hypoglycemia 09/07/20 15:00 12/06/20 14:59 Enoxaparin Sodium (Lovenox) 40 mg DAILY SUBQ 09/13/20 09:00 12/12/20 08:59 09/18/20 08:57 Famotidine (Pepcid) 20 mg DAILY ORAL 09/12/20 09:00 12/11/20 08:59 09/18/20 08:54 Ferrous Sulfate (Feosol) 325 mg TWICE A DAY ORAL 09/12/20 09:00 12/11/20 08:59 09/18/20 08:54 Gabapentin (Neurontin) 300 mg BEDTIME ORAL 09/12/20 21:00 10/12/20 20:59 09/17/20 20:02 Hydrochlorothiazide (Hydrodiuril) 25 mg DAILY ORAL 09/12/20 09:00 10/12/20 08:59 09/18/20 08:53 Insulin Aspart (NovoLOG) BEFORE MEALS AND HS SUBQ 09/07/20 16:30 12/06/20 16:29 09/18/20 05:41 Levofloxacin (Levaquin) 250 mg DAILY ORAL 09/14/20 18:30 09/21/20 18:29 09/18/20 08:54 Levothyroxine Sodium (Synthroid) 88 mcg ACBREAKFAST ORAL 09/12/20 06:30 10/12/20 06:29 09/18/20 05:37 Lisinopril (ZestriL) 10 mg DAILY ORAL 09/12/20 09:00 10/12/20 08:59 09/18/20 08:54 Metformin HCl (Glucophage) 500 mg TWICE A DAY ORAL 09/12/20 06:30 10/12/20 08:59 09/18/20 08:54 Ondansetron HCl (Zofran) 4 mg Q6H PRN IVP Nausea & Vomiting 09/13/20 10:15 10/13/20 10:14 Last 24 Hour Vital Signs Date Time Temp Pulse Resp B/P (MAP) Pulse Ox O2 Delivery O2 Flow Rate FiO2 09/18/20 08:54 131/44 09/18/20 08:00 97.7 95 19 131/44 (73) 95 09/18/20 04:00 98.1 85 19 147/54 (85) 96 09/18/20 00:00 97.7 86 20 151/61 (91) 96 09/17/20 20:59 Nasal Cannula 2.0 09/17/20 20:00 98.2 88 22 157/68 (97) 96 09/17/20 16:00 98.2 88 20 148/81 (103) 94 09/17/20 12:00 97.9 89 20 130/59 (82) 97 09/17/20 09:48 135/55 09/17/20 09:00 Room Air 09/17/20 08:00 97.9 90 20 135/55 (81) 94 09/17/20 04:00 97.9 87 20 154/66 (95) 96 09/17/20 00:00 97.7 82 20 134/58 (83) 92 09/16/20 20:38 Room Air 09/16/20 20:00 97.7 81 20 133/54 (80) 94 09/16/20 16:00 98.5 79 18 121/59 (79) 96 09/16/20 12:00 98.3 81 18 115/58 (77) 96 Intake and Output 09/17/20 09/18/20 19:00 07:00 Intake Total 800 ml 360 ml Output Total 700 ml 800 ml Balance 100 ml -440 ml Other 800 ml 360 ml Output Urine Total 700 ml 800 ml Labs Test 09/15/20 11:43 09/15/20 16:29 09/15/20 20:23 09/16/20 04:00 POC Whole Blood Glucose 191 MG/DL (74-106) 193 MG/DL (74-106) 158 MG/DL (74-106) White Blood Count 9.1 K/UL (4.8-10.8) Red Blood Count 3.20 M/UL (4.20-5.40) Hemoglobin 10.0 G/DL (12.0-16.0) Hematocrit 29.1 % (37.0-47.0) Mean Corpuscular Volume 91 FL (80-99) Mean Corpuscular Hemoglobin 31.2 PG (27.0-31.0) Mean Corpuscular Hemoglobin Concent 34.2 G/DL (32.0-36.0) Red Cell Distribution Width 14.2 % (11.6-14.8) Platelet Count 534 K/UL (150-450) Mean Platelet Volume 6.2 FL (6.5-10.1) Neutrophils (%) (Auto) 82.1 % (45.0-75.0) Lymphocytes (%) (Auto) 9.0 % (20.0-45.0) Monocytes (%) (Auto) 5.1 % (1.0-10.0) Eosinophils (%) (Auto) 3.4 % (0.0-3.0) Basophils (%) (Auto) 0.4 % (0.0-2.0) Sodium Level 131 MMOL/L (136-145) Potassium Level 3.5 MMOL/L (3.5-5.1) Chloride Level 95 MMOL/L (98-107) Carbon Dioxide Level 28 MMOL/L (21-32) Anion Gap 8 mmol/L (5-15) Blood Urea Nitrogen 13 mg/dL (7-18) Creatinine 0.8 MG/DL (0.55-1.30) Estimat Glomerular Filtration Rate > 60 mL/min (>60) Glucose Level 172 MG/DL (74-106) Calcium Level 8.7 MG/DL (8.5-10.1) Test 09/16/20 05:10 09/16/20 12:34 09/16/20 16:45 09/16/20 20:01 POC Whole Blood Glucose 181 MG/DL (74-106) 233 MG/DL (74-106) 197 MG/DL (74-106) 146 MG/DL (74-106) Test 09/17/20 05:47 09/17/20 11:51 09/17/20 16:36 09/17/20 20:07 POC Whole Blood Glucose 168 MG/DL (74-106) 223 MG/DL (74-106) 169 MG/DL (74-106) 157 MG/DL (74-106) Test 09/18/20 05:12 POC Whole Blood Glucose 150 MG/DL (74-106) Height (Feet): 5 Height (Inches): 0.00 Weight (Pounds): 120 Objective PE: VS: reviewed HEENT: Head examination reveals that the head is normocephalic, atraumatic without deformity or unusual swelling. Chest and Lung: Reveals clear, normal, symmetrical breath sounds with no adventitious sound. Cardiovascular: Reveals normal S1, S2 without murmurs, rubs or clicks Abdomen: Soft with no tenderness or organomegaly Rectal: Deferred Musculoskeletal: Tenderness to palpation of the left hip region. Left hip is externally rotated with knees flexed in bed. neurological: Cranial nerves II to XII are intact. Gait is normal without ataxia. DTRs are normal. Babinski is downgoing. Teofilo Orr MD Sep 18, 2020 10:09
[2020-09-18 12:00] VITALS: BP 144/62
--- NOTE | 2020-09-18 12:16 | Pulmonology Progress Note ---
Subjective ROS Limited/Unobtainable: No Interval Events: s/p left hip pinning Constitutional: Reports: no symptoms HEENT: Repors: no symptoms Respiratory: Reports: shortness of breath - improved Cardiovascular: Reports: no symptoms Gastrointestinal/Abdominal: Reports: no symptoms Allergies: Coded Allergies: No Known Allergies (Unverified , 09/06/20) All Systems: reviewed and negative except above Objective Last 24 Hour Vital Signs Date Time Temp Pulse Resp B/P (MAP) Pulse Ox O2 Delivery O2 Flow Rate FiO2 09/18/20 09:00 Room Air 09/18/20 08:54 131/44 09/18/20 08:00 97.7 95 19 131/44 (73) 95 09/18/20 04:00 98.1 85 19 147/54 (85) 96 09/18/20 00:00 97.7 86 20 151/61 (91) 96 09/17/20 20:59 Nasal Cannula 2.0 09/17/20 20:00 98.2 88 22 157/68 (97) 96 09/17/20 16:00 98.2 88 20 148/81 (103) 94 Intake and Output 09/17/20 09/18/20 19:00 07:00 Intake Total 800 ml 360 ml Output Total 700 ml 800 ml Balance 100 ml -440 ml Other 800 ml 360 ml Output Urine Total 700 ml 800 ml General Appearance: WD/WN HEENT: atraumatic Respiratory: lungs clear Cardiovascular: normal rate, regular rhythm Abdomen: soft, non tender Laboratory Tests 09/17/20 16:36: POC Whole Blood Glucose 169H 09/17/20 20:07: POC Whole Blood Glucose 157H 09/18/20 05:12: POC Whole Blood Glucose 150H 09/18/20 11:08: POC Whole Blood Glucose 185H Current Medications Medications (Trade) Dose Ordered Sig/Serena Route PRN Reason Start Time Stop Time Status Last Admin Dose Admin Acetaminophen (Tylenol) 650 mg Q6H PRN ORAL Temp >100.5 09/09/20 09:30 10/09/20 09:29 09/14/20 08:04 Acetaminophen/ Hydrocodone Bitart ([place] 5/325) 1 tab Q6H PRN ORAL For Pain 09/15/20 04:45 09/22/20 04:44 09/18/20 05:38 Cilostazol (Pletal) 50 mg TWICE A DAY ORAL 09/12/20 09:00 10/12/20 08:59 09/18/20 08:53 Clonidine HCl (Catapres Tab) 0.1 mg EVERY 6 HOURS PRN ORAL SBP > 160 mm Hg 09/11/20 11:15 12/10/20 11:14 09/16/20 00:04 Dextrose (Dextrose 50%) 25 ml Q30M PRN IV Hypoglycemia 09/07/20 15:00 12/06/20 14:59 Dextrose (Dextrose 50%) 50 ml Q30M PRN IV Hypoglycemia 09/07/20 15:00 12/06/20 14:59 Enoxaparin Sodium (Lovenox) 40 mg DAILY SUBQ 09/13/20 09:00 12/12/20 08:59 09/18/20 08:57 Famotidine (Pepcid) 20 mg DAILY ORAL 09/12/20 09:00 12/11/20 08:59 09/18/20 08:54 Ferrous Sulfate (Feosol) 325 mg TWICE A DAY ORAL 09/12/20 09:00 12/11/20 08:59 09/18/20 08:54 Gabapentin (Neurontin) 300 mg BEDTIME ORAL 09/12/20 21:00 10/12/20 20:59 09/17/20 20:02 Hydrochlorothiazide (Hydrodiuril) 25 mg DAILY ORAL 09/12/20 09:00 10/12/20 08:59 09/18/20 08:53 Insulin Aspart (NovoLOG) BEFORE MEALS AND HS SUBQ 09/07/20 16:30 12/06/20 16:29 09/18/20 11:42 Levofloxacin (Levaquin) 250 mg DAILY ORAL 09/14/20 18:30 09/21/20 18:29 09/18/20 08:54 Levothyroxine Sodium (Synthroid) 88 mcg ACBREAKFAST ORAL 09/12/20 06:30 10/12/20 06:29 09/18/20 05:37 Lisinopril (ZestriL) 10 mg DAILY ORAL 09/12/20 09:00 10/12/20 08:59 09/18/20 08:54 Metformin HCl (Glucophage) 500 mg TWICE A DAY ORAL 09/12/20 06:30 10/12/20 08:59 09/18/20 08:54 Ondansetron HCl (Zofran) 4 mg Q6H PRN IVP Nausea & Vomiting 09/13/20 10:15 10/13/20 10:14 Assessment/Plan Assessment/Plan Assessment/Plan 1. Left femur fracture 2. Pulmonary nodule 3. Cholelithiasis without evidence of cholecystitis 4. Anemia 5. Diabetes mellitus with hyperglycemia 6. COVID-19 7. Hypertension 8. UTI PLAN: Contd current treatment Contd PT Pain Management room air saturating at 95% on iron supplement for anemia Metformin for D/M ABT for UTI The care for this patient was discussed with my supervising physician. Edith Angel NP Sep 18, 2020 12:16
--- NOTE | 2020-09-18 15:00 | NUR ---
NURSE NOTES: WOUND PHOTO TAKEN AND UPLOADED. TREATMENT DONE. WILL CONT TO MONITOR.
[2020-09-18 16:00] VITALS: BP 119/51
--- NOTE | 2020-09-18 19:11 | NUR ---
NURSE HAND-OFF: Important Events on Shift:[PT EVAL, PAIN MANAGEMENT; WOUND CARE TREATMENT] Patient Status: [STABLE] Diet: [CCHO MED] Pending Orders: [LABS] Pending Results/Labs:[DAILY] Pending MD notification:[] Latest Vital Signs: Temperature 98.1 , Pulse 93 , B/P 119 /51 , Respiratory Rate 19 , O2 SAT 94 , Simple Mask, O2 Flow Rate 2.0 . Vital Sign Comment: [] Latest Dahl Fall Score: 80 Fall Risk: High Risk Safety Measures: Call light Within Reach, Bed Alarm Zone 2, Side Rails Side Rails x3, Bed position Low and Locked. Fall Precautions: Yellow Socks Door Sign Patient Fall Education Report given to [KAYLA].
--- NOTE | 2020-09-18 19:35 | NUR ---
NURSE NOTES: Received patient awake in bed, no s/s of acute distress, no c/o pain at this time. AOx4. IV access patent, dressing dry and intact. Bed low and locked, patient wearing non slip socks.
[2020-09-18 20:00] VITALS: BP 110/52
[2020-09-19] VITALS: BP 125/53
[2020-09-19 04:00] VITALS: BP 131/64
[2020-09-19] MEDS: NovoLOG Insulin Flexpen SUBQ SCH ×5 (05:51→20:38)
--- NOTE | 2020-09-19 06:50 | Hematology/Onc Progress Note ---
Assessment/Plan Assessment/Plan Laboratory data: Lab testing shows RBC 3.11, hemoglobin 9.7, hematocrit 27.4 Chemistries show sodium 130, chloride 96, glucose 168, alk phos 119 Urinalysis shows 1+ protein, 3+ glucose, 3+ ketones, 2+ blood Coagulation panel unremarkable Imagin. Comminuted, angulated, and displaced left intertrochanteric femur fracture. 2. 1.7 cm right lobe pulmonary nodule with irregular margins, suspicious for primary lung malignancy. Consider tissue biopsy for further evaluation. 3. 8 mm left lingular pulmonary nodule. Consider PET CT, short interval follow-up CT, versus tissue biopsy for further evaluation. Impression: # 1.7 cm right lobe pulmonary nodule, also with lingular mass--> on repeat imaging does not show it 09/14/19 --> CT of the abdomen and pelvis showed a 1.7 cm right lobe pulmonary nodule which is very suspicious for lung cancer --> biopsy is not needed as repeat ct scan does not show mass --> as per pulm # Anemia of iron deficiency --> obtain anemia panel-->reviewed --> repeat cbc --> hgb 9.7-->7.1-->9.7->10 --> po iron started # Left femur fracture --> Left hip pinning operation scheduled by Dr. Corral --> Ortho surgery input appreciated # Cholelithiasis without evidence of cholecystitis --> monitor # Hyponatremia --> ivfs # Hypochloremia --> monitor and check AM labs # Diabetes mellitus with hyperglycemia --> monitor BGs --> we will initiate insulin sensitive scale # COVID-19 infection; could be mild case or early phase --> per pulm # DVT ppx lovenox sq Appreciate consultation and corinne Rn Subjective HEENT: Denies: no symptoms, eye pain, blurred vision, tearing, double vision, ear pain, ear discharge, nose pain, nose congestion, throat pain, throat swelling, mouth pain, mouth swelling, other Cardiovascular: Denies: no symptoms, chest pain, edema, irregular heart rate, lightheadedness, palpitations, syncope, other Respiratory: Denies: no symptoms, cough, shortness of breath, SOB with excertion, SOB at rest, sputum, wheezing, other Gastrointestinal/Abdominal: Denies: no symptoms, abdomen distended, abdominal pain, black stools, tarry stools, blood in stool, constipated, diarrhea, diffi culty swallowing, nausea, poor appetite, poor fluid intake, rectal bleeding, vomiting, other Genitourinary: Denies: no symptoms, burning, discharge, frequency, flank pain, hematuria, incontinence, pain, urgency, other Neurologic/Psychiatric: Denies: no symptoms, anxiety, depressed, emotional problems, headache, numbness, paresthesia, pre-existing deficit, seizure, tingling, tremors, weakness, other Endocrine: Denies: no symptoms, excessive sweating, flushing, intolerance to cold, intolerance to heat, increased hunger, increased thirst, increased urine, unexplained weight gain, unexplained weight loss, other Hematologic/Lymphatic: Denies: no symptoms, anemia, easy bleeding, easy bruising, adenopathy, other Allergies: Coded Allergies: No Known Allergies (Unverified , 09/06/20) Subjective 09/09 meds reviewed, no f/c, lovenox sq, pending a biopsy 09/10: no acute events reported. on Lovenox sq, dc planning per primary care team 09/11: hgb 7.2 no active bleeding reported d/w RN Edith 09/12 labs are still pending, is on lovenox sq 09/13 on simple mask, meds reviewed, cbc has been ordered again 09/14 on , [facility] radiology yesterday and ct biopsy cancelled as with covid19 09/15 ct of the chest has been reviewed, no mass is noted, labs reviewed 09/16: no acute events reported. No bleeding. 09/18 with bernadine, no bleeding, simple face mask, corinne rn, no major changes 09/19 labs are noted, with colindres, no major changes, pending cbc Objective Objective Current Medications Medications (Trade) Dose Ordered Sig/Serena Route PRN Reason Start Time Stop Time Status Last Admin Dose Admin Acetaminophen (Tylenol) 650 mg Q6H PRN ORAL Temp >100.5 09/09/20 09:30 10/09/20 09:29 09/14/20 08:04 Acetaminophen/ Hydrocodone Bitart ([place] 5/325) 1 tab Q6H PRN ORAL For Pain 09/15/20 04:45 09/22/20 04:44 09/18/20 17:32 Cilostazol (Pletal) 50 mg TWICE A DAY ORAL 09/12/20 09:00 10/12/20 08:59 09/18/20 17:32 Clonidine HCl (Catapres Tab) 0.1 mg EVERY 6 HOURS PRN ORAL SBP > 160 mm Hg 09/11/20 11:15 12/10/20 11:14 09/16/20 00:04 Dextrose (Dextrose 50%) 25 ml Q30M PRN IV Hypoglycemia 09/07/20 15:00 12/06/20 14:59 Dextrose (Dextrose 50%) 50 ml Q30M PRN IV Hypoglycemia 09/07/20 15:00 12/06/20 14:59 Enoxaparin Sodium (Lovenox) 40 mg DAILY SUBQ 09/13/20 09:00 12/12/20 08:59 09/18/20 08:57 Famotidine (Pepcid) 20 mg DAILY ORAL 09/12/20 09:00 12/11/20 08:59 09/18/20 08:54 Ferrous Sulfate (Feosol) 325 mg TWICE A DAY ORAL 09/12/20 09:00 12/11/20 08:59 09/18/20 17:32 Gabapentin (Neurontin) 300 mg BEDTIME ORAL 09/12/20 21:00 10/12/20 20:59 09/18/20 20:07 Hydrochlorothiazide (Hydrodiuril) 25 mg DAILY ORAL 09/12/20 09:00 10/12/20 08:59 09/18/20 08:53 Insulin Aspart (NovoLOG) BEFORE MEALS AND HS SUBQ 09/07/20 16:30 12/06/20 16:29 09/19/20 05:51 Levofloxacin (Levaquin) 250 mg DAILY ORAL 09/14/20 18:30 09/21/20 18:29 09/18/20 08:54 Levothyroxine Sodium (Synthroid) 88 mcg ACBREAKFAST ORAL 09/12/20 06:30 10/12/20 06:29 09/19/20 06:44 Lisinopril (ZestriL) 10 mg DAILY ORAL 09/12/20 09:00 10/12/20 08:59 09/18/20 08:54 Metformin HCl (Glucophage) 500 mg TWICE A DAY ORAL 09/12/20 06:30 10/12/20 08:59 09/18/20 17:32 Ondansetron HCl (Zofran) 4 mg Q6H PRN IVP Nausea & Vomiting 09/13/20 10:15 10/13/20 10:14 Last 24 Hour Vital Signs Date Time Temp Pulse Resp B/P (MAP) Pulse Ox O2 Delivery O2 Flow Rate FiO2 09/19/20 04:00 98.1 87 19 131/64 (86) 94 09/19/20 00:00 98.5 90 19 125/53 (77) 94 09/18/20 21:43 Room Air 09/18/20 20:00 98.4 92 19 110/52 (71) 94 09/18/20 18:02 98.1 09/18/20 16:00 98.1 93 19 119/51 (73) 94 09/18/20 12:00 97.2 91 18 144/62 (89) 94 09/18/20 09:00 Room Air 09/18/20 08:54 131/44 09/18/20 08:00 97.7 95 19 131/44 (73) 95 09/18/20 04:00 98.1 85 19 147/54 (85) 96 09/18/20 00:00 97.7 86 20 151/61 (91) 96 09/17/20 20:59 Nasal Cannula 2.0 09/17/20 20:00 98.2 88 22 157/68 (97) 96 09/17/20 16:00 98.2 88 20 148/81 (103) 94 09/17/20 12:00 97.9 89 20 130/59 (82) 97 09/17/20 09:48 135/55 09/17/20 09:00 Room Air 09/17/20 08:00 97.9 90 20 135/55 (81) 94 Intake and Output 09/18/20 09/19/20 19:00 07:00 Intake Total 720 ml 240 ml Output Total 400 ml 300 ml Balance 320 ml -60 ml Intake Oral 720 ml 240 ml Output Urine Total 400 ml 300 ml # Voids 1 Labs Test 09/16/20 12:34 09/16/20 16:45 09/16/20 20:01 09/17/20 05:47 POC Whole Blood Glucose 233 MG/DL (74-106) 197 MG/DL (74-106) 146 MG/DL (74-106) 168 MG/DL (74-106) Test 09/17/20 11:51 09/17/20 16:36 09/17/20 20:07 09/18/20 05:12 POC Whole Blood Glucose 223 MG/DL (74-106) 169 MG/DL (74-106) 157 MG/DL (74-106) 150 MG/DL (74-106) Test 09/18/20 11:08 09/18/20 16:16 POC Whole Blood Glucose 185 MG/DL (74-106) Height (Feet): 5 Height (Inches): 0.00 Weight (Pounds): 120 Objective PE: VS: reviewed HEENT: Head examination reveals that the head is normocephalic, atraumatic without deformity or unusual swelling. Chest and Lung: Reveals clear, normal, symmetrical breath sounds with no adventitious sound. Cardiovascular: Reveals normal S1, S2 without murmurs, rubs or clicks Abdomen: Soft with no tenderness or organomegaly Rectal: Deferred Musculoskeletal: Tenderness to palpation of the left hip region. Left hip is externally rotated with knees flexed in bed. neurological: Cranial nerves II to XII are intact. Gait is normal without ataxia. DTRs are normal. Babinski is downgoing. Teofilo Orr MD Sep 19, 2020 06:50
--- NOTE | 2020-09-19 07:26 | NUR ---
HAND-OFF: Report given to JAZMIN Montes.
[2020-09-19 07:31] LABS: BASOPHILS % (AUTO) 0.6 % (0.0-2.0); HEMATOCRIT 32.1 % (37.0-47.0); HEMOGLOBIN 10.7 G/DL (12.0-16.0); LYMPHOCYTES % (AUTO) 13.2 % (20.0-45.0); MEAN CORPUSCULAR VOLUME 96 FL (80-99); MONOCYTES % (AUTO) 8.8 % (1.0-10.0); NEUTROPHILS % (AUTO) 74.4 % (45.0-75.0); PLATELET COUNT 715 K/UL (150-450); RED BLOOD COUNT 3.35 M/UL (4.20-5.40); RED CELL DISTRIBUTION WIDTH 13.7 % (11.6-14.8); WHITE BLOOD COUNT 7.8 K/UL (4.8-10.8)
[2020-09-19 07:44] LABS: ANION GAP 7 mmol/L (5-15); BLOOD UREA NITROGEN 16 mg/dL (7-18); CALCIUM 8.7 MG/DL (8.5-10.1); CARBON DIOXIDE 29 MMOL/L (21-32); CHLORIDE 98 MMOL/L (98-107); CREATININE 0.9 MG/DL (0.55-1.30); POTASSIUM 3.4 MMOL/L (3.5-5.1); SODIUM 134 MMOL/L (136-145)
--- NOTE | 2020-09-19 07:58 | NUR ---
NURSE NOTES: Received report from Ramona WU, patient laying in bed with no signs of distress or other issues at this time. Iv on the left AC gauge #20 SL. per report patient has a left heel DTI. surgical dressing dry and intact. Juan cath in place draining well. call light within reach, bed in lowest position. side rales up x2. I will f/u as needed.
[2020-09-19 08:00] VITALS: BP 127/60
[2020-09-19] MEDS: metFORMIN 500mg tab ORAL SCH ×2 (10:03→17:10)
[2020-09-19] MEDS: Cilostazol 100mg tab ORAL SCH ×2 (10:03→17:10)
[2020-09-19] MEDS: hydroCHLOROthiazide 25mg cap ORAL SCH (10:03)
[2020-09-19] MEDS: Lisinopril 10mg tab ORAL SCH (10:04)
[2020-09-19] MEDS: Enoxaparin 40mg Inj SUBQ SCH (10:04)
[2020-09-19] MEDS: HYDROcodone/Acetamin 5/325 tab ORAL PRN (10:09)
[2020-09-19 12:00] VITALS: BP 136/54
[2020-09-19 16:00] VITALS: BP 144/63
--- NOTE | 2020-09-19 16:22 | NUR ---
*-*DISCHARGE PLANNING*-* PATIENT HAS BEEN REFERRED TO: [facility] [place] P: [phone] S/W BUBBA, NEED TO VERIFY INSURANCE, WILL CALL BACK AND FOLLOW UP TOMORROW
--- NOTE | 2020-09-19 16:45 | NUR ---
CASE MANAGEMENT:REVIEW SI;COVID PNEUMONIA. LT HIP PINNING 09/07/20. 98.5 96 19 136/54 94% ON RA PLT 715 IS;NORCO PO Q6 PRN LEVAQUIN PO QD LOVENOX SQ QD PEPCID PO QD PLETAL PO BID HCTZ PO QD MED SURG STATUS DCP;FROM HOME PLAN;SNF PLACEMENT
--- NOTE | 2020-09-19 17:01 | NUR ---
*-*DISCHARGE PLANNING*-* PATIENT HAS BEEN REFERRED TO: [facility] P: [phone] S/W [facility], WHO STATED, THEY HAVE A SISTER FACILITY THAT ACCEPTS THIS PATIENTS INSURANCE, WILL FAX OVER CLINICALS.
--- NOTE | 2020-09-19 19:27 | NUR ---
NURSE NOTES: Given report Placido WU, pt in stable condition.
[2020-09-19 20:00] VITALS: BP 149/73
[2020-09-20] VITALS: BP 146/64
[2020-09-20 04:00] VITALS: BP 148/84
--- NOTE | 2020-09-20 06:43 | Hematology/Onc Progress Note ---
Assessment/Plan Assessment/Plan Laboratory data: Lab testing shows RBC 3.11, hemoglobin 9.7, hematocrit 27.4 Chemistries show sodium 130, chloride 96, glucose 168, alk phos 119 Urinalysis shows 1+ protein, 3+ glucose, 3+ ketones, 2+ blood Coagulation panel unremarkable Imagin. Comminuted, angulated, and displaced left intertrochanteric femur fracture. 2. 1.7 cm right lobe pulmonary nodule with irregular margins, suspicious for primary lung malignancy. Consider tissue biopsy for further evaluation. 3. 8 mm left lingular pulmonary nodule. Consider PET CT, short interval follow-up CT, versus tissue biopsy for further evaluation. Impression: # 1.7 cm right lobe pulmonary nodule, also with lingular mass--> on repeat imaging does not show it 09/14/19 --> CT of the abdomen and pelvis showed a 1.7 cm right lobe pulmonary nodule which is very suspicious for lung cancer --> biopsy is not needed as repeat ct scan does not show mass --> as per pulm # Anemia of iron deficiency --> obtain anemia panel-->reviewed --> repeat cbc --> hgb 9.7-->7.1-->9.7->10 --> po iron started # Left femur fracture --> Left hip pinning operation scheduled by Dr. Corral --> Ortho surgery input appreciated # Cholelithiasis without evidence of cholecystitis --> monitor # Hyponatremia --> ivfs # Hypochloremia --> monitor and check AM labs # Diabetes mellitus with hyperglycemia --> monitor BGs --> we will initiate insulin sensitive scale # COVID-19 infection; could be mild case or early phase --> per pulm # DVT ppx lovenox sq Appreciate consultation and corinne Rn Subjective HEENT: Denies: no symptoms, eye pain, blurred vision, tearing, double vision, ear pain, ear discharge, nose pain, nose congestion, throat pain, throat swelling, mouth pain, mouth swelling, other Cardiovascular: Denies: no symptoms, chest pain, edema, irregular heart rate, lightheadedness, palpitations, syncope, other Respiratory: Denies: no symptoms, cough, shortness of breath, SOB with excertion, SOB at rest, sputum, wheezing, other Genitourinary: Denies: no symptoms, burning, discharge, frequency, flank pain, hematuria, incontinence, pain, urgency, other Neurologic/Psychiatric: Denies: no symptoms, anxiety, depressed, emotional problems, headache, numbness, paresthesia, pre-existing deficit, seizure, tingling, tremors, weakness, other Endocrine: Denies: no symptoms, excessive sweating, flushing, intolerance to cold, intolerance to heat, increased hunger, increased thirst, increased urine, unexplained weight gain, unexplained weight loss, other Hematologic/Lymphatic: Denies: no symptoms, anemia, easy bleeding, easy bruising, adenopathy, other Allergies: Coded Allergies: No Known Allergies (Unverified , 09/06/20) Subjective 09/09 meds reviewed, no f/c, lovenox sq, pending a biopsy 09/10: no acute events reported. on Lovenox sq, dc planning per primary care team 09/11: hgb 7.2 no active bleeding reported d/w RN Edith 09/12 labs are still pending, is on lovenox sq 09/13 on simple mask, meds reviewed, cbc has been ordered again 09/14 on , corinne radiology yesterday and ct biopsy cancelled as with covid19 09/15 ct of the chest has been reviewed, no mass is noted, labs reviewed 09/16: no acute events reported. No bleeding. 09/18 with colindres, no bleeding, simple face mask, dw rn, no major changes 09/19 labs are noted, with colindres, no major changes, pending cbc 09/20 labs noted, meds reviewed, plt remains low, no night sweats Objective Objective Current Medications Medications (Trade) Dose Ordered Sig/Serena Route PRN Reason Start Time Stop Time Status Last Admin Dose Admin Acetaminophen (Tylenol) 650 mg Q6H PRN ORAL Temp >100.5 09/09/20 09:30 10/09/20 09:29 09/14/20 08:04 Acetaminophen/ Hydrocodone Bitart ([place] 5/325) 1 tab Q6H PRN ORAL For Pain 09/15/20 04:45 09/22/20 04:44 09/19/20 10:09 Cilostazol (Pletal) 50 mg TWICE A DAY ORAL 09/12/20 09:00 10/12/20 08:59 09/19/20 17:10 Clonidine HCl (Catapres Tab) 0.1 mg EVERY 6 HOURS PRN ORAL SBP > 160 mm Hg 09/11/20 11:15 12/10/20 11:14 09/16/20 00:04 Dextrose (Dextrose 50%) 25 ml Q30M PRN IV Hypoglycemia 09/07/20 15:00 12/06/20 14:59 Dextrose (Dextrose 50%) 50 ml Q30M PRN IV Hypoglycemia 09/07/20 15:00 12/06/20 14:59 Enoxaparin Sodium (Lovenox) 40 mg DAILY SUBQ 09/13/20 09:00 12/12/20 08:59 09/19/20 10:04 Famotidine (Pepcid) 20 mg DAILY ORAL 09/12/20 09:00 12/11/20 08:59 09/19/20 10:03 Ferrous Sulfate (Feosol) 325 mg TWICE A DAY ORAL 09/12/20 09:00 12/11/20 08:59 09/19/20 17:10 Gabapentin (Neurontin) 300 mg BEDTIME ORAL 09/12/20 21:00 10/12/20 20:59 09/19/20 20:37 Hydrochlorothiazide (Hydrodiuril) 25 mg DAILY ORAL 09/12/20 09:00 10/12/20 08:59 09/19/20 10:03 Insulin Aspart (NovoLOG) BEFORE MEALS AND HS SUBQ 09/07/20 16:30 12/06/20 16:29 09/19/20 05:59 Levofloxacin (Levaquin) 250 mg DAILY ORAL 09/14/20 18:30 09/21/20 18:29 09/19/20 10:03 Levothyroxine Sodium (Synthroid) 88 mcg ACBREAKFAST ORAL 09/12/20 06:30 10/12/20 06:29 09/20/20 05:58 Lisinopril (ZestriL) 10 mg DAILY ORAL 09/12/20 09:00 10/12/20 08:59 09/19/20 10:04 Metformin HCl (Glucophage) 500 mg TWICE A DAY ORAL 09/12/20 06:30 10/12/20 08:59 09/19/20 17:10 Ondansetron HCl (Zofran) 4 mg Q6H PRN IVP Nausea & Vomiting 09/13/20 10:15 10/13/20 10:14 Last 24 Hour Vital Signs Date Time Temp Pulse Resp B/P (MAP) Pulse Ox O2 Delivery O2 Flow Rate FiO2 09/20/20 04:00 97.7 98 20 148/84 (105) 94 09/20/20 00:00 98.1 93 20 146/64 (91) 94 09/19/20 21:37 Room Air 09/19/20 20:00 97.7 94 20 149/73 (98) 95 09/19/20 16:00 97.4 92 18 144/63 (90) 95 09/19/20 12:00 97.4 96 18 136/54 (81) 96 09/19/20 10:39 98.1 09/19/20 10:04 127/60 09/19/20 09:00 Room Air 09/19/20 08:00 97.5 94 18 127/60 (82) 96 09/19/20 04:00 98.1 87 19 131/64 (86) 94 09/19/20 00:00 98.5 90 19 125/53 (77) 94 09/18/20 21:43 Room Air 09/18/20 20:00 98.4 92 19 110/52 (71) 94 09/18/20 18:02 98.1 09/18/20 16:00 98.1 93 19 119/51 (73) 94 09/18/20 12:00 97.2 91 18 144/62 (89) 94 09/18/20 09:00 Room Air 09/18/20 08:54 131/44 09/18/20 08:00 97.7 95 19 131/44 (73) 95 Intake and Output 09/19/20 09/20/20 19:00 07:00 Intake Total 600 ml Balance 600 ml Other 600 ml Labs Test 09/17/20 11:51 09/17/20 16:36 09/17/20 20:07 09/18/20 05:12 POC Whole Blood Glucose 223 MG/DL (74-106) 169 MG/DL (74-106) 157 MG/DL (74-106) 150 MG/DL (74-106) Test 09/18/20 11:08 09/18/20 16:16 09/19/20 06:20 09/19/20 16:38 POC Whole Blood Glucose 185 MG/DL (74-106) 171 MG/DL (74-106) White Blood Count 7.8 K/UL (4.8-10.8) Red Blood Count 3.35 M/UL (4.20-5.40) Hemoglobin 10.7 G/DL (12.0-16.0) Hematocrit 32.1 % (37.0-47.0) Mean Corpuscular Volume 96 FL (80-99) Mean Corpuscular Hemoglobin 32.0 PG (27.0-31.0) Mean Corpuscular Hemoglobin Concent 33.4 G/DL (32.0-36.0) Red Cell Distribution Width 13.7 % (11.6-14.8) Platelet Count 715 K/UL (150-450) Mean Platelet Volume 6.0 FL (6.5-10.1) Neutrophils (%) (Auto) 74.4 % (45.0-75.0) Lymphocytes (%) (Auto) 13.2 % (20.0-45.0) Monocytes (%) (Auto) 8.8 % (1.0-10.0) Eosinophils (%) (Auto) 3.0 % (0.0-3.0) Basophils (%) (Auto) 0.6 % (0.0-2.0) Sodium Level 134 MMOL/L (136-145) Potassium Level 3.4 MMOL/L (3.5-5.1) Chloride Level 98 MMOL/L (98-107) Carbon Dioxide Level 29 MMOL/L (21-32) Anion Gap 7 mmol/L (5-15) Blood Urea Nitrogen 16 mg/dL (7-18) Creatinine 0.9 MG/DL (0.55-1.30) Estimat Glomerular Filtration Rate > 60 mL/min (>60) Glucose Level 165 MG/DL (74-106) Calcium Level 8.7 MG/DL (8.5-10.1) Test 09/20/20 05:45 Height (Feet): 5 Height (Inches): 0.00 Weight (Pounds): 120 Objective PE: VS: reviewed HEENT: Head examination reveals that the head is normocephalic, atraumatic without deformity or unusual swelling. Chest and Lung: Reveals clear, normal, symmetrical breath sounds with no adventitious sound. Cardiovascular: Reveals normal S1, S2 without murmurs, rubs or clicks Abdomen: Soft with no tenderness or organomegaly Rectal: Deferred Musculoskeletal: Tenderness to palpation of the left hip region. Left hip is externally rotated with knees flexed in bed. neurological: Cranial nerves II to XII are intact. Gait is normal without ataxia. DTRs are normal. Babinski is downgoing. Teofilo Orr MD Sep 20, 2020 06:43
[2020-09-20 06:53] LABS: BASOPHILS % (AUTO) 0.7 % (0.0-2.0); EOSINOPHILS % (AUTO) 2.4 % (0.0-3.0); HEMATOCRIT 30.2 % (37.0-47.0); HEMOGLOBIN 10.4 G/DL (12.0-16.0); LYMPHOCYTES % (AUTO) 13.4 % (20.0-45.0); MEAN CORPUSCULAR VOLUME 95 FL (80-99); MONOCYTES % (AUTO) 8.9 % (1.0-10.0); NEUTROPHILS % (AUTO) 74.6 % (45.0-75.0); PLATELET COUNT 756 K/UL (150-450); RED BLOOD COUNT 3.17 M/UL (4.20-5.40); RED CELL DISTRIBUTION WIDTH 13.7 % (11.6-14.8); WHITE BLOOD COUNT 7.5 K/UL (4.8-10.8)
[2020-09-20 07:23] LABS: ANION GAP 7 mmol/L (5-15); BLOOD UREA NITROGEN 12 mg/dL (7-18); CARBON DIOXIDE 29 MMOL/L (21-32); CHLORIDE 98 MMOL/L (98-107); CREATININE 0.8 MG/DL (0.55-1.30); POTASSIUM 3.6 MMOL/L (3.5-5.1); SODIUM 134 MMOL/L (136-145)
--- NOTE | 2020-09-20 07:54 | NUR ---
HAND-OFF: Report given to JAZMIN Goyal.
[2020-09-20 08:00] VITALS: BP 141/62
[2020-09-20] MEDS: Lisinopril 10mg tab ORAL SCH (09:11)
[2020-09-20] MEDS: Cilostazol 100mg tab ORAL SCH ×2 (09:11→17:27)
[2020-09-20] MEDS: metFORMIN 500mg tab ORAL SCH ×2 (09:11→17:28)
[2020-09-20] MEDS: hydroCHLOROthiazide 25mg cap ORAL SCH (09:12)
[2020-09-20] MEDS: Enoxaparin 40mg Inj SUBQ SCH (09:12)
--- NOTE | 2020-09-20 09:17 | Pulmonology Progress Note ---
Subjective ROS Limited/Unobtainable: No Interval Events: s/p left hip pinning Constitutional: Reports: no symptoms HEENT: Repors: no symptoms Respiratory: Reports: shortness of breath - improved Cardiovascular: Reports: no symptoms Gastrointestinal/Abdominal: Reports: no symptoms Allergies: Coded Allergies: No Known Allergies (Unverified , 09/06/20) All Systems: reviewed and negative except above Objective Last 24 Hour Vital Signs Date Time Temp Pulse Resp B/P (MAP) Pulse Ox O2 Delivery O2 Flow Rate FiO2 09/20/20 09:11 141/62 09/20/20 04:00 97.7 98 20 148/84 (105) 94 09/20/20 00:00 98.1 93 20 146/64 (91) 94 09/19/20 21:37 Room Air 09/19/20 20:00 97.7 94 20 149/73 (98) 95 09/19/20 16:00 97.4 92 18 144/63 (90) 95 09/19/20 12:00 97.4 96 18 136/54 (81) 96 09/19/20 10:39 98.1 09/19/20 10:04 127/60 Intake and Output 09/19/20 09/20/20 19:00 07:00 Intake Total 600 ml 360 ml Output Total 2000 ml Balance 600 ml -1640 ml Other 600 ml 360 ml Output Urine Total 2000 ml Objective 09/20 saturating well on RA; s/p colindres 09/16 saturating well on RA; ?urinary retention 09/15 NAD; saturating at 93-95% on 1L NC 09/14 NAD; saturating at 90% on RA; put her back on 1-2L NC as needed 09/13 NAD; saturating at 98% on 2L NC; stable 09/12 NAD; saturation stable on 2L NC 09/11 remains on 2L NC saturating at 98% 09/10 no change 09/09 on 2L NC saturating well 09/08 on 2L NC saturating well General Appearance: WD/WN HEENT: atraumatic Respiratory: lungs clear Cardiovascular: normal rate, regular rhythm Abdomen: soft, non tender Laboratory Tests 09/19/20 16:38: POC Whole Blood Glucose 171H 09/20/20 05:45: White Blood Count 7.5, Red Blood Count 3.17L, Hemoglobin 10.4L, Hematocrit 30.2L , Mean Corpuscular Volume 95, Mean Corpuscular Hemoglobin 32.8H, Mean Corpuscular Hemoglobin Concent 34.5, Red Cell Distribution Width 13.7, Platelet Count 756H, Mean Platelet Volume 5.8L, Neutrophils (%) (Auto) 74.6, Lymphocytes (%) (Auto) 13.4L, Monocytes (%) (Auto) 8.9, Eosinophils (%) (Auto) 2.4, Basophils (%) (Auto) 0.7, Sodium Level 134L, Potassium Level 3.6, Chloride Level 98, Carbon Dioxide Level 29, Anion Gap 7, Blood Urea Nitrogen 12, Creatinine 0.8, Estimat Glomerular Filtration Rate > 60, Glucose Level 198H, Calcium Level 9.0 Current Medications Medications (Trade) Dose Ordered Sig/Sreena Route PRN Reason Start Time Stop Time Status Last Admin Dose Admin Acetaminophen (Tylenol) 650 mg Q6H PRN ORAL Temp >100.5 09/09/20 09:30 10/09/20 09:29 09/14/20 08:04 Acetaminophen/ Hydrocodone Bitart ([place] 5/325) 1 tab Q6H PRN ORAL For Pain 09/15/20 04:45 09/22/20 04:44 09/19/20 10:09 Cilostazol (Pletal) 50 mg TWICE A DAY ORAL 09/12/20 09:00 10/12/20 08:59 09/20/20 09:11 Clonidine HCl (Catapres Tab) 0.1 mg EVERY 6 HOURS PRN ORAL SBP > 160 mm Hg 09/11/20 11:15 12/10/20 11:14 09/16/20 00:04 Dextrose (Dextrose 50%) 25 ml Q30M PRN IV Hypoglycemia 09/07/20 15:00 12/06/20 14:59 Dextrose (Dextrose 50%) 50 ml Q30M PRN IV Hypoglycemia 09/07/20 15:00 12/06/20 14:59 Enoxaparin Sodium (Lovenox) 40 mg DAILY SUBQ 09/13/20 09:00 12/12/20 08:59 09/20/20 09:12 Famotidine (Pepcid) 20 mg DAILY ORAL 09/12/20 09:00 12/11/20 08:59 09/20/20 09:11 Ferrous Sulfate (Feosol) 325 mg TWICE A DAY ORAL 09/12/20 09:00 12/11/20 08:59 09/20/20 09:11 Gabapentin (Neurontin) 300 mg BEDTIME ORAL 09/12/20 21:00 10/12/20 20:59 09/19/20 20:37 Hydrochlorothiazide (Hydrodiuril) 25 mg DAILY ORAL 09/12/20 09:00 10/12/20 08:59 09/20/20 09:12 Insulin Aspart (NovoLOG) BEFORE MEALS AND HS SUBQ 09/07/20 16:30 12/06/20 16:29 09/19/20 05:59 Levofloxacin (Levaquin) 250 mg DAILY ORAL 09/14/20 18:30 09/21/20 18:29 09/20/20 09:11 Levothyroxine Sodium (Synthroid) 88 mcg ACBREAKFAST ORAL 09/12/20 06:30 10/12/20 06:29 09/20/20 05:58 Lisinopril (ZestriL) 10 mg DAILY ORAL 09/12/20 09:00 10/12/20 08:59 09/20/20 09:11 Metformin HCl (Glucophage) 500 mg TWICE A DAY ORAL 09/12/20 06:30 10/12/20 08:59 09/20/20 09:11 Ondansetron HCl (Zofran) 4 mg Q6H PRN IVP Nausea & Vomiting 09/13/20 10:15 10/13/20 10:14 Assessment/Plan Assessment/Plan 1. Left femur fracture - s/p Left hip pinning operation by Dr. Corral 2. 1.7 cm right lobe pulmonary nodule -CT of the abdomen and pelvis showed a 1.7 cm right lobe pulmonary nodule which is very suspicious for lung cancer -Further history is required either from patient or patient's family. -scheduled for CT guided needle Bx of lung nodule on 09/12/[address] Orr; however, imaging department recommends that the pt should tests negative for COVID-[address] with contrast prior to CT-guided needle Bx of lung nodule due to risk of pneumothorax - CT chest 09/14 previously demonstrated lung mass no longer visible. perhaps obscured or consolidations that have resolved since; follow up CT is recommended as an outpatient - appreciate heme-onc consult 3. Cholelithiasis without evidence of cholecystitis - monitor 4. Anemia; better - heme-onc following - IV fluid DC'd - s/p transfusion - on PO iron 5. Hyponatremia - monitor 6. Hypochloremia - IV fluid DC'd - monitor 7. Diabetes mellitus with hyperglycemia - monitor BGs - on insulin sensitive scale - on metformin 8. COVID-19 infection; could be mild case or early phase - given her normoxemia on room air, without SOB, fever, cough, no specific therapy required for COVID-19 at this time - Monitor SaO2 and provide supplemental oxygen as needed 9. Hypertension - on prn clonidine for SBP >160, lisinopril, and hydrochlorothiazide 10. DVT ppx - on Lovenox 40 - D/w surgeon 11. New onset fever; resolved - Rejr=723.0 12. E Coli UTI - on Levaquin (09/14-) 13. Hypokalemia - K replaced; now resolved - Mg 1.5 14. urinary retention - on Colindres resume diabetic diet CT chest no longer demonstrates lung nodule; follow up CT as an outpatient DC pending SNF placement The care for this patient was discussed with my supervising physician. Time spent for this case was approximately 31 minutes. Piter Inman Sep 20, 2020 09:17
[2020-09-20 12:00] VITALS: BP 137/69
[2020-09-20] MEDS: NovoLOG Insulin Flexpen SUBQ SCH ×3 (12:18→21:00)
[2020-09-20] MEDS: HYDROcodone/Acetamin 5/325 tab ORAL PRN (12:22)
--- NOTE | 2020-09-20 12:24 | NUR ---
*-*DISCHARGE PLANNING*-* PATIENT HAS BEEN REFERRED TO: [facility]) P: [phone] S/W EDWARD, WILL CALL BACK AFTER REVIEW.
--- NOTE | 2020-09-20 13:10 | NUR ---
RD ASSESSMENT & RECOMMENDATIONS SEE CARE ACTIVITY FOR COMPLETE ASSESSMENT DAILY ESTIMATED NEEDS: Needs based on DM, Wound/ 54.3kg 25-30 kcals/kg 8622-6266 total kcals 1.25-1.5 g protein/kg 67-81 g total protein 25-30 mL/kg 1399-8027 total fluid mLs NUTRITION DIAGNOSIS: * Increased kcal/prot needs R/T wound healing as evidenced by pt admitted w/ Lt heel DTPI wound. CURRENT DIET:CCHO MED PO DIET RECOMMENDATIONS: CCHO MED/ texture as tolerated ADDITIONAL RECOMMENDATIONS: * Calibrated bedscale wt * Wound healing: MVI x 1, Vit C 500mg QD, ZnSO4 220mg QD x 10 days Kuldeep BID * Glucerna x 1 w/ variable intake * Monitor lytes and replete as needed (low Na, K now wnl) .
--- NOTE | 2020-09-20 15:43 | NUR ---
CASE MANAGEMENT:REVIEW SI;COVID PNEUMONIA. LT HIP PINNING 09/07/20. 97.9 95 20 148/84 94% ON RA NA+ 134 GLU+ 274 IS;NORCO PO Q6 PRN LEVAQUIN PO QD LOVENOX SQ QD HCTZ PO QD PLETAL PO BID MED SURG STATUS DCP;FROM HOME DC PLANNING TO SNF FOR REHAB
[2020-09-20 16:00] VITALS: BP 127/67
--- NOTE | 2020-09-20 17:21 | NUR ---
*-*DISCHARGE PLANNED*-* PATIENT HAS BEEN ACCEPTED AND WILL BE DISCHARGED TO: [facility]) P: [phone] FOR NURSE TO NURSE REPORT ROOM# 307.[facility] TRANSPORTATION SET FOR 6PM S/W MARQUISE [id number].
--- NOTE | 2020-09-20 19:40 | NUR ---
NURSE NOTES: Received report from JAZMIN Goyal. AAO x 4, on RA. Fall precaution maintained. Juan in place for urinary retention. She is discharging processing now. Report given to Zaid Norris. Ambulance coming. Notified Tanisha daughter [phone]. No acute distress noted. Bed locked, lowest position, alarm on, side rails up, call light within reach. Will continue to monitor.
[2020-09-20 20:00] VITALS: BP 124/70
--- NOTE | 2020-09-20 20:06 | NUR ---
NURSE HAND-OFF: Important Events on Shift: TRANSFER TO REHAB THIS EVENING. Patient Status: STABLE Diet: CCHO Pending Orders: N/A Pending Results/Labs: N/A Pending MD notification: N/A Latest Vital Signs: Temperature 97.0 , Pulse 72 , B/P 127 /67 , Respiratory Rate 18 , O2 SAT 98 RA. Vital Sign Comment: STABLE Latest Dahl Fall Score: 85 Fall Risk: High Risk Safety Measures: Call light Within Reach, Bed Alarm Zone 1, Side Rails Side Rails x2, Bed position Low and Locked. Fall Precautions: Door Sign Patient Fall Education Report given to PRESLEY FONG RN.
--- NOTE | 2020-09-20 22:36 | NUR ---
NURSE NOTES: Ambulance came and Pt discharged with Juan and stable condition. All belongings sent with pt. ID band and IV removed.
--- NOTE | 2020-09-21 10:41 | NUR ---
INSURANCE [employer]IC[employer]/DC INSTRUCTIONS FAXED TO (09/17-09/20) SCAN SR P [phone] F [phone] AND [facility] NCM Savana HANEY P [phone] F [phone]
== END 2020-09-20 22:40 | disposition short-term general hospital (02) | DRG 480 ==
LOC: EDBD 17:50 → EMR 19:24 → SUR 20:44 → EDBEDREQ 09-07 10:17 → EDBEDREQSVC 09-07 10:17 → EDBEDREQ 09-07 10:31 → SUR 09-07 10:33 → 4E 09-07 15:08
PROC: 0QS734Z Reposition Left Upper Femur with Internal Fixation Device, Percutaneous Approach (ICD-10-PCS; principal; 2020-09-07 17:30)
DX: S72.142A Displaced intertrochanteric fracture of left femur, initial encounter for closed fracture (principal); U07.1 COVID-19; E87.1 Hypo-osmolality and hyponatremia; N39.0 Urinary tract infection, site not specified; K80.20 Calculus of gallbladder without cholecystitis without obstruction; E87.8 Other disorders of electrolyte and fluid balance, not elsewhere classified; I10 Essential (primary) hypertension; W01.0XXA Fall on same level from slipping, tripping and stumbling without subsequent striking against object, initial encounter; Y92.9 Unspecified place or not applicable; E11.65 Type 2 diabetes mellitus with hyperglycemia; R91.1 Solitary pulmonary nodule; D50.9 Iron deficiency anemia, unspecified; B96.20 Unspecified Escherichia coli [E. coli] as the cause of diseases classified elsewhere; R33.9 Retention of urine, unspecified
CPT/HCPCS: 36415; 71045; 71260; 72170; 74176; 80048; 80053; 81003; 82728; 82962; 83036; 83735; 85007; 85025; 85610; 85730; 86850; 86900; 86901; 86920; 87086; 87181; 93005; 94003; 94150; 96374; 96375; 99285; J1815; J2405; J8499; U0002